=== PATIENT | female | born 1990 | race Caucasian/White ===

== ENCOUNTER 2016-09-18 17:35 | Emergency (ER) | payer MEDICAID, OTHER ==
[~2016-09-18] VITALS: Ht 157.5 cm; Wt 99.8 kg
[~2016-09-18 17:35] MED LIST: CLIN300C11 PO; IBUP-30 PO; LITH300C PO; ONDA4TAB11 PO; SERT50TA2 PO; SULF-222 PO; SULF1TAB35 PO; TRAZ100T92 PO; ZOLOFT
[2016-09-18] MEDS ORDERED: PHEN-452 PO (18:22)
[2016-09-18] MEDS ORDERED: TOPI25CA2 PO (18:22)
[2016-09-18] MEDS ORDERED: CLON1TAB27 PO (18:22)
[2016-09-18] MEDS ORDERED: SUMA100T3 PO (18:22)
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
[2016-09-18 18:52] LABS: BASOPHILS # (AUTO) 0.1 10^3/uL (0.0-0.1); BASOPHILS % (AUTO) 0 % (0-10); EOSINOPHILS % (AUTO) 0 % (0-10); LYMPHOCYTES % (AUTO) 32 % (12-44); MEAN CORPUSCULAR HEMOGLOBIN 30 PG (25-34); MEAN CORPUSCULAR HGB CONC 34 G/DL (32-36); MEAN CORPUSCULAR VOLUME 87 FL (80-99); MEAN PLATELET VOLUME 9.8 FL (7.4-10.4); MONOCYTES # (AUTO) 1.3 X 10^3 (0.0-1.0); MONOCYTES % (AUTO) 8 % (0-12); NEUTROPHILS # (AUTO) 9.5 X 10^3 (1.8-7.8); NEUTROPHILS % (AUTO) 60 % (42-75); PLATELET COUNT 352 10^3/uL (130-400); RED BLOOD COUNT 4.99 10^6/uL (4.35-5.85); RED CELL DISTRIBUTION WIDTH 12.6 % (10.0-14.5); WHITE BLOOD COUNT 15.9 10^3/uL (4.3-11.0)
[2016-09-18 19:05] LABS: BASOPHILS % (MANUAL) 1 %; EOSINOPHILS % (MANUAL) 1 %; LYMPHOCYTES % (MANUAL) 31 %; NEUTROPHILS % (MANUAL) 60 %
[2016-09-18] MEDS ORDERED: TETANUS,DIPTH,PERTUSS P/F (BOOSTRIX) 0.5 ML VIAL IM ONE ×2 (19:15→19:22)
[2016-09-18 19:29] LABS: ACETAMINOPHEN < 10 UG/ML (10-30); ALANINE AMINOTRANSFERASE 78 U/L (0-55); ALBUMIN 4.4 GM/DL (3.2-4.5); ALCOHOL < 10 MG/DL (<10); ANION GAP 16 MMOL/L (5-14); ASPARTATE AMINO TRANSFERASE 112 U/L (5-34); BILIRUBIN,TOTAL 1.2 MG/DL (0.1-1.0); BLOOD UREA NITROGEN 18 MG/DL (7-18); BUN/CREATININE RATIO 19; CALCIUM 10.1 MG/DL (8.5-10.1); CARBON DIOXIDE 20 MMOL/L (21-32); CHLORIDE 104 MMOL/L (98-107); CREATININE SERUM 0.97 MG/DL (0.60-1.30); GFR ESTIMATED > 60; GLUCOSE 103 MG/DL (70-105); MAGNESIUM 2.2 MG/DL (1.8-2.4); POTASSIUM 3.5 MMOL/L (3.6-5.0); SALICYLATE < 5.0 MG/DL (5.0-20.0); SODIUM 140 MMOL/L (135-145); TOTAL PROTEIN 7.9 GM/DL (6.4-8.2)
[2016-09-18 19:46] LABS: BILIRUBIN,URINE 1+ (NEGATIVE); KETONES,URINE 1+ (NEGATIVE); LEUKOCYTE ESTERASE ,URINE 3+ (NEGATIVE); NITRITE,URINE NEGATIVE (NEGATIVE); PH,URINE 6 (5-9); PROTEIN,URINE 2+ (NEGATIVE); UROBILINOGEN,URINE 1 MG/DL (NORMAL)
[2016-09-18] MEDS ORDERED: MUPI15CR TP (20:12)
[2016-09-18] MEDS ORDERED: SULF1TAB35 PO ×2 (20:12→20:19)
[2016-09-18 20:13] LABS: SQUAMOUS EPITHELIAL CELL,UR >50 /HPF; WBC,URINE 25-50 /HPF
[2016-09-18 20:14] LABS: HYALINE CASTS, URINE RARE /LPF
[2016-09-18] MEDS ORDERED: RX-TRIMETH/SULFA. 160-800 MG (BACTRIM DS) TAB PPK#2 PO STA (20:14)
[2016-09-18] MEDS ORDERED: hydrOXYzine (VISTARIL) 25 MG CAP PO ONE (20:15)
[2016-09-18 20:45] VITALS: BP 142/100
--- OUTSIDE RECORDS SUMMARY | 2016-09-19 16:36 | XMS REPORT | Summary of Care ---
Author Author Thaddeus Graham M.D. Organization Unknown Address [address], [place] [id number] Phone Unavailable Care Team Providers Care Client Support Associate Name Role Phone Thaddeus Graham M.D. Unavailable Unavailable Thaddeus Graham PP Unavailable Unavailable Unavailable Functional Status Functional Status Health Issues* Name Dates Details Functional status health issues are not documented Status: Cognitive Status Health Issues* Name Dates Details Cognitive status health issues are not documented Status: Problems Name Dates Details Insomnia (780.52, G47.00) Status: Active Depression (311, F32.9) Status: Active Bipolar illness (296.80, F31.9) Status: Active Seasonal allergies (477.9, J30.2) Status: Active Chronic GERD (530.81, K21.9) Status: Active Chronic diarrhea (787.91, K52.9) Status: Active Headache, chronic daily (784.0, R51) Status: Active Chest wall pain (786.52, R07.89) Status: Active Costochondritis (733.6, M94.0) Status: Active Hepatitis C (070.70, B19.20) Status: Active Bronchitis (490, J40) Status: Active Rib pain on right side (786.50, R07.81) Status: Active Cough due to bronchospasm (519.11, J98.01) Status: Active Medications Name Dates Details PROzac 20 MG Oral Capsule TAKE 1 CAPSULE DAILY. * Started 20-Jul-2015 ActiveLithium Carbonate 300 MG Oral Capsule TAKE 1 CAPSULE 3 TIMES DAILY. * Refills: 0 * Started 20-Jul-2015 ActiveTraZODone HCl - 150 MG Oral Tablet TAKE 1 TABLET AT BEDTIME. * Refills: 0 * Started 22-Jul-2015 ActiveBenzonatate 100 MG Oral Capsule TAKE 1 CAPSULE 3 TIMES DAILY NEEDED. * Quantity: 30 Refills: 2 Thaddeus Graham M.D.* Started 22-Jul-2015 ActiveProventil HFA 108 (90 Base) MCG/ACT Inhalation Aerosol Solution INHALE 2 PUFFS EVERY 4 HOURS NEEDED * Quantity: 1 Refills: 6 Thaddeus Graham M.D.* Started 22-Jul-2015 Active6.7 GM Inhaler Indomethacin 50 MG Oral Capsule TAKE 1 CAPSULE 3 TIMES DAILY NEEDED. * Quantity: 90 Refills: 1 Thaddeus Graham M.D.* Started 28-Jul-2015 ActiveOxyCODONE HCl - 10 MG Oral Tablet take 1 po TID prn * Quantity: 40 Refills: 0 Thaddeus Graham M.D.* Started 28-Jul-2015 ActiveGuaiFENesin ER 600 MG Oral Tablet Extended Release 12 Hour TAKE 2 TABLETS EVERY 12 HOURS. * Quantity: 40 Refills: 0 Thaddeus Graham M.D.* Started 28-Jul-2015 ActiveCefdinir 300 MG Oral Capsule TAKE 1 CAPSULE TWICE DAILY UNTIL GONE. * Quantity: 14 Refills: 0 Thaddeus Graham M.D.* Started 28-Jul-2015 ActiveLevofloxacin 750 MG Oral Tablet TAKE 1 TABLET DAILY. * Quantity: 20 Refills: 0 Thaddeus Graham M.D.* Started 04-Aug-2015 Active Allergies and Adverse Reactions Name Dates Details Bactrim Status: Active Erythromycin Derivatives Status: Active Penicillins Status: Active Past Medical History Name Dates Details Bipolar illness (296.80, F31.9) Status: Active Hepatitis C (070.70, B19.20) Status: Active Rib pain on right side (786.50, R07.81) Status: Active Seasonal allergies (477.9, J30.2) Status: Active Procedures Procedure Dates Details History of Tonsillectomy Procedures not documented Immunization Name Dates Details Immunizations not documented Family History Mother* Name Dates Details Family history of cardiac disorder (V17.49, Z82.49) Status: Active Father* Name Dates Details Family history of Diabetes type 2, controlled (250.00, E11.9) Status: Active Family history of cardiac disorder (V17.49, Z82.49) Status: Active Family history of High cholesterol (272.0, E78.0) Status: Active Social History Name Dates Details Smoking Status* Smoker. current status unknown Vital Signs Date Test Result Details 10:53 BP Systolic 126 mm[Hg] Status: BP Diastolic 68 mm[Hg] Status: Temperature 98.2 f Status: Heart Rate 82 /min Status: Weight 231 lb Status: O2 SAT 97 % Status: Body Mass Index Calculated 42.25 kg/m2 Status: Body Surface Area Calculated 2.03 m2 Status: 04-Aug-2015 16:39 BP Systolic 124 mm[Hg] Status: BP Diastolic 68 mm[Hg] Status: Temperature 97.8 f Status: Heart Rate 81 /min Status: Weight 237 lb Status: O2 SAT 98 % Status: Body Mass Index Calculated 43.35 kg/m2 Status: Body Surface Area Calculated 2.05 m2 Status: 03-Aug-2015 17:15 BP Systolic 148 mm[Hg] Status: BP Diastolic 98 mm[Hg] Status: Temperature 97.9 f Status: Heart Rate 87 /min Status: O2 SAT 98 % Status: 28-Jul-2015 15:06 BP Systolic 128 mm[Hg] Status: BP Diastolic 72 mm[Hg] Status: Temperature 98 f Status: Heart Rate 87 /min Status: Weight 242 lb Status: O2 SAT 98 % Status: Body Mass Index Calculated 44.26 kg/m2 Status: Body Surface Area Calculated 2.07 m2 Status: Results Date Description Value Details 28-Jul-2015 07:56 Hepatitis C Viral RNA, Quantitative, RT- PCR w/Reflex to [id number] Comments: [facility], [address] [place] [address], [phone], Moss Bleacher: Jose Shay MDQuest Collection Date/Time: [id number] Results Received Date/Time: [id number] Reported Date/Time: [id number] FASTING:NO HCV RNA, QUANTITATIVE REAL TIME PCR [id number] IU/mL (Above high threshold) Comments: [[facility]]----- HCV RNA, QUANTITATIVE REAL TIME PCR 6.64 LogIU/mL (Above high threshold) Comments: REFERENCE RANGE: HCV RNA, PCR, QUANT: <15 IU/mL HCV RNA, PCR, QUANT: <1.18 LogIU/mLThis test was performed using the RUSLAN(R) AmpliPrep/RUSLAN(R)TaqMan(R) HCV Test, v2.0.The performance characteristics of this assay have beendetermined by [facility]. Performance characteristicsrefer to the analytical performance of the test.For additional information, please refer [email or web address].[employer]/faq [email or web address](This link is being provided for informational/educational purposesonly. )[[facility]]----- 29-Jul-2015 10:19 Hepatitis C Viral RNA, Genotype, LIPA [id number] Comments : [facility] performed at: [facility], [facility], [address] [place] [address], [id number], Moss Bleacher: Jose Shay MDQuest Collection Date/Time: [id number] Results Received Date/Time: [id number] Reported Date/Time: [id number] FASTING:NO HCV GENOTYPE, LIPA GENOTYPE 1a (Better) Comments: REFERENCE RANGE: NOT DETECTEDThe method used in this test is RT-PCR and reversehybridization (Line Probe) of the 5' UTR and coreregion of the HCV genome.This test was developed and its analytical performancecharacteristics have been determined by [facility].It has not been cleared or approved by the U.S. Food andDrug Administration. The FDA has determined that suchclearance or approval is not necessary. This assay hasbeen validated pursuant to the CLIA regulations and isused for clinical purposes.[email or web address] /faq/ HCVGenotyping[[facility]]----- Plan of Care Planned Observations* Name Dates Details Planned Goals not documented Goal Instructions * Instructions not documented Encounters Appointment; Thaddeus Graham Encounter Diagnosis: Problem not documented On 10:45 Appointment; Thaddeus Graham Encounter Diagnosis: Problem not documented On 04-Aug-2015 16:30 Appointment; Alisa Cloud Encounter Diagnosis: Problem not documented On 03-Aug-2015 17:00 Appointment; Thaddeus Graham Encounter Diagnosis: Problem not documented On 28-Jul-2015 14:45 Appointment; Thaddeus Graham Encounter Diagnosis: Problem not documented On 22-Jul-2015 13:45 Appointment; Alisa Cloud Encounter Diagnosis: Problem not documented On 20-Jul-2015 08:30
--- OUTSIDE RECORDS SUMMARY | 2016-09-19 16:36 | XMS REPORT | Summary of Care ---
Author Author Thaddeus Graham M.D. Organization Unknown Address Unknown Phone Unavailable Care Team Providers Care Instructional Material Director Name Role Phone Thaddeus Graham M.D. Unavailable Unavailable Thaddeus Graham Unavailable Unavailable Unavailable Unavailable Functional Status Name Dates Details Functional status health issues are not documented Status: Name Dates Details Cognitive status health issues are not documented Status: Problems Name Dates Details Insomnia (780.52, G47.00) Status: Active Depression (311, F32.9) Status: Active Bipolar illness (296.80, F31.9) Status: Active Chronic GERD (530.81, K21.9) Status: Active Chronic diarrhea (787.91, K52.9) Status: Active Headache, chronic daily (784.0, R51) Status: Active Costochondritis (733.6, M94.0) Status: Active Hepatitis C (070.70, B19.20) Status: Active Rib pain on right side (786.50, R07.81) Status: Active Cough due to bronchospasm (519.11, J98.01) Status: Active Seasonal allergies (477.9, J30.2) Status: Active Blood in urine (599.70, R31.9) Status: Active UTI (urinary tract infection) (599.0, N39.0) Status: Active control counseling (V25.09, Z30.9) Status: Active Contraception (V25.9, Z30.9) Status: Active Urinary incontinence (788.30, R32) Status: Active Pleurisy (511.0, R09.1) Status: Active Bronchitis (490, J40) Status: Active Chest wall pain (786.52, R07.89) Status: Active Pulled muscle (848.9, T14.8) Status: Active Low back pain (724.2, M54.5) Status: Active MRSA infection (041.12, A49.02) Status: Active Anxiety disorder (300.00, F41.9) Status: Active 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 * Start 20-Jul-2015 Active [place] Carbonate 300 MG Oral Capsule TAKE 1 CAPSULE 3 TIMES DAILY. * Refills: 0 * Start 20-Jul-2015 Active TraZODone HCl - 150 MG Oral Tablet TAKE 1 TABLET AT BEDTIME. * Refills: 0 * Start 22-Jul-2015 Active Benzonatate 100 MG Oral Capsule TAKE 1 CAPSULE 3 TIMES DAILY NEEDED. * Quantity: 30 Refills: 2 Gladys M.D., Thaddeus * Start 22-Jul-2015 Active Indomethacin 50 MG Oral Capsule TAKE 1 CAPSULE 3 TIMES DAILY NEEDED. * Quantity: 90 Refills: 1 Gladys M.D., Thaddeus * Start 28-Jul-2015 Active OxyCODONE HCl - 5 MG Oral Tablet TAKE 1 TABLET TID PRN * Quantity: 30 Refills: 0 [place] M.D., Thaddeus * Start 28-Jul-2015 Active GuaiFENesin ER 600 MG Oral Tablet Extended Release 12 Hour TAKE 2 TABLETS EVERY 12 HOURS. * Quantity: 40 Refills: 0 [place] M.D., Thaddeus * Start 28-Jul-2015 Active Cefdinir 300 MG Oral Capsule TAKE 1 CAPSULE TWICE DAILY UNTIL GONE. * Quantity: 14 Refills: 0 [place] M.D., Thaddeus * Start 28-Jul-2015 Active LevoFLOXacin 750 MG Oral Tablet TAKE 1 TABLET DAILY. * Quantity: 20 Refills: 0 [place] M.D., Thaddeus * Start 04-Aug-2015 Active Montelukast Sodium 10 MG Oral Tablet TAKE 1 TABLET AT BEDTIME. * Quantity: 30 Refills: 5 [place] M.D., Thaddeus * Start Active Nitrofurantoin Monohyd Macro 100 MG Oral Capsule TAKE 1 CAPSULE TWICE DAILY UNTIL GONE. * Quantity: 20 Refills: 0 [place] M.D., Thaddeus * Start Active Phenazopyridine HCl - 200 MG Oral Tablet 1 PO TID X 2 days * Quantity: 6 Refills: 0 Gladys M.D., Thaddeus * Start Active Sprintec 28 0.25-35 MG-MCG Oral Tablet TAKE 1 TABLET DAILY DIRECTED. * Quantity: 1 Refills: 0 [place] M.D., Thaddeus * Start 18-Oct-2015 Active 28 Tablet Disp Pack PredniSONE 50 MG Oral Tablet take 1 daily for 5 days * Quantity: 5 Refills: 0 [place] M.D., Thaddeus * Start 04-Nov-2015 Active Cefdinir 300 MG Oral Capsule TAKE 1 CAPSULE EVERY 12 HOURS UNTIL GONE. * Quantity: 20 Refills: 0 [place] M.D., Thaddeus * Start 04-Nov-2015 Active Ventolin HFA 108 (90 Base) MCG/ACT Inhalation Aerosol Solution INHALE 2 PUFFS EVERY 4 HOURS NEEDED FOR COUGH AND WHEEZE. * Quantity: 1 Refills: 0 [place] M.D., Thaddeus * Start 04-Nov-2015 Active 8 GM Inhaler TiZANidine HCl - 4 MG Oral Tablet TAKE 1 TABLET 3 TIMES DAILY NEEDED. * Quantity: 30 Refills: 0 [place] M.D., Thaddeus * Start 02-Dec-2015 Active TraMADol HCl - 50 MG Oral Tablet TAKE 1 TO 2 TABLETS 4 TIMES DAILY NEEDED FOR PAIN. * Quantity: 60 Refills: 1 [place] M.D., Thaddeus * Start 02-Dec-2015 Active Salsalate 750 MG Oral Tablet TAKE 1 TABLET 3 times daily * Quantity: 90 Refills: 6 [place] M.D., Thaddeus * Start 05-Dec-2015 Active Celecoxib 200 MG Oral Capsule take 1 capsule daily * Quantity: 30 Refills: 0 Gladys M.D., Thaddeus * Start 05-Dec-2015 Active ALPRAZolam XR 2 MG Oral Tablet Extended Release 24 Hour TAKE 1 TABLET DAILY. * Quantity: 30 Refills: 0 Gladys M.D., Thaddeus * Start 03-Jan-2016 Active Lidocaine 5 % External Ointment Apply to painful area four times a day as needed * Quantity: 1 Refills: 1 Gladys M.D., Thaddeus * Start 04-Jan-2016 Active 35 GM Tube Clindamycin HCl - 300 MG Oral Capsule take 1 po QID * Quantity: 60 Refills: 0 Gladys M.D., Thaddeus * Start 05-Jan-2016 Active Allergies and Adverse Reactions Name Dates Details Bactrim (Allergy) Status: Active Erythromycin Derivatives (Allergy) Status: Active Penicillins (Allergy) Status: Active Past Medical History Name Dates Details Bipolar illness (296.80, F31.9) Status: Active Hepatitis C (070.70, B19.20) Status: Active Rib pain on right side (786.50, R07.81) Status: Active Seasonal allergies (477.9, J30.2) Status: Active Procedures Procedure Dates Details History of Tonsillectomy CBC w/ Manual Diff 7225 Ordered: 05-Jan-2016 C REACTIVE PROTEIN, CRP 2030 Ordered: 05-Jan-2016 Immunization Name Dates Details Immunizations not documented Family History Name Dates Details Family history of cardiac disorder (V17.49, Z82.49) Status: Active Name Dates Details Family history of Diabetes type 2, controlled (250.00, E11.9) Status: Active Family history of cardiac disorder (V17.49, Z82.49) Status: Active Family history of High cholesterol (272.0, E78.00) Status: Active Social History Name Dates Details - Status: Name Dates Details Smoker. current status unknown Vital Signs Date Test Result Details 03-Jan-2016 09:06 Temperature 97.5 f Status: Comments: Method: Tympanic Heart Rate 88 /min Status: Comments: Location: ; Weight 221 lb Status: Physical Findings 97 Status: Comments: O2 Saturation Body Mass Index Calculated 40.42 kg/m2 Status: Body Surface Area Calculated 1.99 m2 Status: Results Date Description Value Details 28-Dec-2015 08:19 POTASSIUM 1170 POTASSIUM 4.1 04-Jan-2016 14:18 C REACTIVE PROTEIN, CRP 2030 C REACTIVE PROTEIN 2.0 mg/dL (Above high threshold) Range: 0.0-0.9 14:49 CBC w/ Manual Diff 7225 WBC 19.6 K/uL (Above high threshold) Range: 4.5-11.0 RBC 4.75 mil/uL Range: 3.60-5.00 HGB 14.0 g/dL Range: 12.0-16.0 HCT 41.4 % Range: 36.0-48.0 MCV 87.3 fL Range: 80.0-99.0 MCH 29.4 pg Range: 27.3-32.5 MCHC 33.7 % Range: 32.0-36.0 RDW 15.6 % (Above high threshold) Range: 11.6-14.8 PLATELETS 380 K/uL Range: 150-400 MPV 7.6 fL Range: 6.0-11.0 NEUTRO 14.8 K/uL (Above high threshold) Range: 2.0-6.9 SEGS 69 % Range: 37-80 BANDS 0 % Range: 0-7 LYMPH 28 % Range: 13-50 MONO 2 % Range: 0-12 EOSIN 1 % Range: 0-7 BASO 0 % Range: 0-3 CECILE LYMPH 0 % Range: 0-0 META 0 % Range: 0-0 MYELO 0 % Range: 0-0 PRO 0 % Range: 0-0 BLAST 0 % Range: 0-0 NUC RBC 0 /100 WBC Range: 0-0 SMUDGE 0 /100 WBC PLATELET Adequate Range: Adequate ANISO Slight Plan of Care Name Dates Details Planned Observations Planned Goals not documented Planned Encounters Appointment; Provider: Thaddeus Graham M.D. On 10-Jan-2016 10:45 Interventions Provided Medication Changes* Clindamycin HCl - 300 MG Oral Capsule - Start Labs/Procedures/Imaging* C REACTIVE PROTEIN, CRP 2030; To be Done: 05 Jan 2016 * CBC w/ Manual Diff 7225; To be Done: 05 Jan 2016 Instructions Name Dates Details Instructions not documented Encounters Appointment; Thaddeus Graham M.D. Encounter Diagnosis: Problem not documented On 03-Jan-2016 09:00 Appointment; Thaddeus Graham M.D. Encounter Diagnosis: Problem not documented On 16-Dec-2015 16:15 Appointment; Thaddeus Graham M.D. Encounter Diagnosis: Problem not documented On 02-Dec-2015 16:45 Appointment; Thaddeus Graham M.D. Encounter Diagnosis: Problem not documented On 04-Nov-2015 08:45 Appointment; Thaddeus Graham M.D. Encounter Diagnosis: Problem not documented On 18-Oct-2015 11:00 Appointment; Thaddeus Graham M.D. Encounter Diagnosis: Problem not documented On 14:30 Appointment; Thaddeus Graham M.D. Encounter Diagnosis: Problem not documented On 10:45 Appointment; Thaddeus Graham M.D. Encounter Diagnosis: Problem not documented On 04-Aug-2015 16:30 Appointment; Alisa Cloud Encounter Diagnosis: Problem not documented On 03-Aug-2015 17:00 Appointment; Thaddeus Graham M.D. Encounter Diagnosis: Problem not documented On 28-Jul-2015 14:45 Appointment; Thaddeus Graham M.D. Encounter Diagnosis: Problem not documented On 22-Jul-2015 13:45 Appointment; Alisa Cloud Encounter Diagnosis: Problem not documented On 20-Jul-2015 08:30
--- OUTSIDE RECORDS SUMMARY | 2016-09-19 16:36 | XMS REPORT | Summary of Care ---
Author Author Thaddeus Graham M.D. Organization Unknown Address Unknown Phone Unavailable Care Team Providers Care Aircraft Engine Mechanic Supervisor Name Role Phone Thaddeus Graham M.D. Unavailable [...] Low back pain (724.2, M54.5) Status: Active Medications Name Dates Details PROzac 20 MG Oral Capsule TAKE 1 CAPSULE DAILY. * Start 20-Jul-2015 Active [place] Carbonate 300 MG Oral Capsule TAKE 1 [...] DAILY NEEDED. * Quantity: 90 Refills: 1 [place] M.D., Thaddeus * Start 28-Jul-2015 Active OxyCODONE HCl - 5 MG Oral Tablet TAKE 1 TABLET EVERY 4 HOURS NEEDED FOR PAIN. * Quantity: 50 Refills: 0 [place] M.D., Thaddeus * Start 28-Jul-2015 Active GuaiFENesin ER 600 MG Oral Tablet Extended Release 12 Hour TAKE 2 TABLETS EVERY 12 HOURS. * Quantity: 40 Refills: 0 Gladys M.D., Thaddeus * Start 28-Jul-2015 Active Cefdinir 300 MG Oral Capsule TAKE 1 CAPSULE TWICE DAILY UNTIL GONE. * Quantity: 14 Refills: 0 [place] M.D., Thaddeus * Start 28-Jul-2015 Active LevoFLOXacin 750 MG Oral Tablet TAKE 1 TABLET DAILY. * Quantity: 20 Refills: 0 [place] M.D., Thaddeus * Start 04-Aug-2015 Active Montelukast Sodium 10 MG Oral Tablet TAKE 1 TABLET AT BEDTIME. * Quantity: 30 Refills: 5 Gladys M.D., Thaddeus * Start Active Nitrofurantoin Monohyd Macro 100 MG Oral Capsule TAKE 1 CAPSULE TWICE DAILY UNTIL GONE. * Quantity: 20 Refills: 0 [place] M.D., Thaddeus * Start Active Phenazopyridine HCl - 200 MG Oral Tablet 1 PO TID X 2 days * Quantity: 6 Refills: 0 [place] M.D., Thaddeus * Start Active Sprintec 28 0.25-35 MG-MCG Oral Tablet TAKE 1 TABLET DAILY DIRECTED. * Quantity: 1 Refills: 0 [place] M.D., Thaddeus * Start 18-Oct-2015 Active 28 Tablet Disp Pack PredniSONE 50 MG Oral Tablet take 1 daily for 5 days * Quantity: 5 Refills: 0 Gladys M.D., Thaddeus * Start 04-Nov-2015 Active Cefdinir 300 MG Oral Capsule TAKE 1 CAPSULE EVERY 12 HOURS UNTIL GONE. * Quantity: 20 Refills: 0 [place] M.D., Thaddeus * Start 04-Nov-2015 Active Ventolin HFA 108 (90 Base) MCG/ACT Inhalation Aerosol Solution INHALE 2 PUFFS EVERY 4 HOURS NEEDED FOR COUGH AND WHEEZE. * Quantity: 1 Refills: 0 [place] M.D., Thaddeus * Start 04-Nov-2015 Active 8 GM Inhaler TiZANidine HCl - 4 MG Oral Tablet TAKE 1 TABLET 3 TIMES DAILY NEEDED. * Quantity: 30 Refills: 0 Gladys M.D., Thaddeus * Start 02-Dec-2015 Active TraMADol HCl - 50 MG Oral Tablet TAKE 1 TO 2 TABLETS 4 TIMES DAILY NEEDED FOR PAIN. * Quantity: 60 Refills: 1 Gladys M.D., Thaddeus * Start 02-Dec-2015 Active Salsalate 750 MG Oral Tablet TAKE 1 TABLET 3 times daily * Quantity: 90 Refills: 6 [place] M.D., Thaddeus * Start 05-Dec-2015 Active Allergies and Adverse Reactions Name Dates Details Bactrim (Allergy) Status: Active Erythromycin Derivatives (Allergy) Status: Active Penicillins (Allergy) Status: Active Past Medical History Name Dates Details Bipolar illness (296.80, F31.9) Status: Active Hepatitis C (070.70, B19.20) Status: Active Rib pain on right side (786.50, R07.81) Status: Active Seasonal allergies (477.9, J30.2) Status: Active Procedures Procedure Dates Details History of Tonsillectomy Urinalysis, reflex to Micro and Culture ([facility]) 8016 Ordered: Oct-2015 Immunization Name Dates Details Immunizations not documented [...] unknown Vital Signs Date Test Result Details 02-Dec-2015 16:58 BP Systolic 124 mm[Hg] Status: Comments: Location: LUE; Position: Sitting BP Diastolic 80 mm[Hg] Status: Comments: Location: LUE; Position: Sitting Temperature 98.1 f Status: Comments: Method: Tympanic Heart Rate 82 /min Status: Comments: Location: ; Physical Findings 98 Status: Comments: O2 Saturation Results Date Description Value Details Results not documented Plan of Care Name Dates Details Planned Observations Planned Goals not documented Planned Encounters Appointment; Provider: Thaddeus Graham M.D. On 16-Dec-2015 16:15 Interventions Provided Medication Changes* Salsalate 750 MG Oral Tablet - Start Instructions Name Dates Details Instructions not documented [...]
--- OUTSIDE RECORDS SUMMARY | 2016-09-19 16:36 | XMS REPORT ---
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
--- OUTSIDE RECORDS SUMMARY | 2016-09-19 16:36 | XMS REPORT | Summary of Care ---
Author Author Thaddeus Graham M.D. Organization Unknown Address [address], [place] [id number] Phone Unavailable Care Team Providers Care Beater Room Supervisor Name Role Phone Pedro LuisAlisa Unavailable Unavailable Thaddeus Graham M.D. Unavailable Unavailable Avril Jama PP Unavailable Unavailable Unavailable Functional Status Functional Status Health Issues* Name Dates Details Functional status health issues are not documented Status: Cognitive Status Health Issues* Name Dates Details Cognitive status health issues are not documented Status: Problems Name Dates Details Insomnia (780.52, G47.00) Status: Active Rib pain on right side (786.50, R07.81) Status: Active Headache, chronic daily (784.0, R51) Status: Active Chest wall pain (786.52, R07.89) Status: Active Cough (786.2, R05) Status: Active Depression (311, F32.9) Status: Active Seasonal allergies (477.9, J30.2) Status: Active Chronic diarrhea (787.91, K52.9) Status: Active Bronchitis (490, J40) Status: Active Hepatitis C (070.70, B19.20) Status: Active Bipolar illness (296.80, F31.9) Status: Active Chronic GERD (530.81, K21.9) Status: Active Medications Name Dates Details PROzac 20 MG Oral Capsule TAKE 1 CAPSULE DAILY. * Started 20-Jul-2015 Active[place] Carbonate 300 MG Oral Capsule TAKE 1 CAPSULE 3 TIMES DAILY. * Refills: 0 * Started 20-Jul-2015 ActiveLevofloxacin 500 MG Oral Tablet TAKE 1 TABLET DAILY. * Quantity: 7 Refills: 0 Pedro Luis Alisa * Started 20-Jul-2015 Ended 27-Jul-2015 ActivePromethazine-Codeine 6.25-10 MG/5ML Oral Syrup Take 5 - 7.5 ml at bedtime for cough * Quantity: 1 Refills: 0 Alisa Cloud * Started 20-Jul-2015 Ritxrk334 ML Bottle TraZODone HCl - 150 MG Oral Tablet TAKE 1 TABLET AT BEDTIME. * Refills: 0 * Started 22-Jul-2015 ActiveHydrocodone-Acetaminophen 5-325 MG Oral Tablet TAKE 1 TO 2 TABLETS EVERY 4 TO 6 HOURS NEEDED FOR PAIN. * Quantity: 60 Refills: 0 Thaddeus Graham M.D.* Started 22-Jul-2015 ActiveBenzonatate 100 MG Oral Capsule TAKE 1 CAPSULE 3 TIMES DAILY NEEDED. * Quantity: 30 Refills: 5 Thaddeus Graham M.D.* Started 22-Jul-2015 ActivePromethazine-DM 6.25-15 MG/5ML Oral Syrup TAKE 5 - 10 ML BY MOUTH EVERY 6 HOURS NEEDED. * Quantity: 1 Refills: 3 Thaddeus Graham M.D.* Started 22-Jul-2015 [id number] ML Bottle Proventil HFA 108 (90 Base) MCG/ACT Inhalation Aerosol Solution INHALE 2 PUFFS EVERY 4 HOURS NEEDED * Quantity: 1 Refills: 6 Thaddeus Graham M.D.* Started 22-Jul-2015 Active6.7 GM Inhaler Allergies and Adverse Reactions Name Dates Details Bactrim Status: Active Erythromycin Derivatives Status: Active Penicillins Status: Active Past Medical History Name Dates Details Bipolar illness (296.80, F31.9) Status: Active Hepatitis C (070.70, B19.20) Status: Active Rib pain on right side (786.50, R07.81) Status: Active Seasonal allergies (477.9, J30.2) Status: Active Procedures Procedure Dates Details History of Tonsillectomy Hepatitis C Viral RNA, Quantitative, RT- PCR w/Reflex to [id number] Ordered: LIVER PROFILE 1215 Ordered:22-Jul-2015 Immunization Name Dates Details Immunizations not documented Family History Mother* Name Dates Details Family history of cardiac disorder (V17.49, Z82.49) Status: Active Father* Name Dates Details Family history of Diabetes type 2, controlled (250.00, E11.9) Status: Active Family history of High cholesterol (272.0, E78.0) Status: Active Family history of cardiac disorder (V17.49, Z82.49) Status: Active Social History Name Dates Details Smoking Status* Smoker. current status unknown Vital Signs Date Test Result Details 22-Jul-2015 13:58 BP Systolic 130 mm[Hg] Status: BP Diastolic 78 mm[Hg] Status: Temperature 99.7 f Status: Heart Rate 68 /min Status: Weight 237 lb Status: O2 SAT 97 % Status: Body Mass Index Calculated 43.35 kg/m2 Status: Body Surface Area Calculated 2.05 m2 Status: 20-Jul-2015 08:29 BP Systolic 130 mm[Hg] Status: BP Diastolic 88 mm[Hg] Status: Temperature 98.8 f Status: Heart Rate 89 /min Status: Height 62 in Status: Weight 236 lb Status: O2 SAT 99 % Status: Body Mass Index Calculated 43.17 kg/m2 Status: Body Surface Area Calculated 2.05 m2 Status: Results Date Description Value Details 20-Jul-2015 09:27 XRay CHEST-PA & LAT Comments: Exam Date: 07/20/2015 08: 58Dictation Date: 07/20/2015 09:27 X CHEST PA & LAT ([facility]) Plan of Care Planned Observations* Name Dates Details Planned Goals not documented Goal Instructions * Instructions not documented Encounters Appointment; Thaddeus Graham Encounter Diagnosis: Problem not documented On 22-Jul-2015 13:45 Appointment; Alisa Cloud Encounter Diagnosis: Problem not documented On 20-Jul-2015 08:30
--- OUTSIDE RECORDS SUMMARY | 2016-09-19 16:37 | XMS REPORT | Summary of Care ---
Author Author Thaddeus Graham M.D. Organization Unknown Address [address], [place] [id number] Phone Unavailable Care Team Providers Care Home Therapy Clinician Name Role Phone Thaddeus Graham M.D. Unavailable [...] Chest wall pain (786.52, R07.89) Status: Active Rib pain on right side (786.50, R07.81) Status: Active Bronchitis (490, J40) Status: Active Costochondritis (733.6, M94.0) Status: Active Hepatitis C (070.70, B19.20) Status: Active Cough due to bronchospasm (519.11, [...] Refills: 0 Thaddeus Graham M.D.* Started 28-Jul-2015 Active Allergies and Adverse Reactions Name Dates Details Bactrim Status: Active Erythromycin Derivatives Status: Active Penicillins Status: Active Past Medical History Name Dates Details Bipolar illness (296.80, F31.9) Status: Active Hepatitis C (070.70, B19.20) Status: Active Rib pain on right side (786.50, R07.81) Status: Active Seasonal allergies (477.9, J30.2) Status: Active Procedures Procedure Dates Details History of Tonsillectomy LIVER PROFILE 1215 Ordered:22-Jul-2015 Immunization Name Dates [...] unknown Vital Signs Date Test Result Details 04-Aug-2015 16:39 BP Systolic 124 mm[Hg] Status: [...] Body Surface Area Calculated 2.07 m2 Status: 22-Jul-2015 13:58 BP Systolic 130 mm[Hg] Status: [...] 09:27 X CHEST PA & LAT ([facility]) 28-Jul-2015 07:56 Hepatitis C Viral RNA, Quantitative, RT- PCR w/Reflex to [id number] Comments: [facility] performed at: [facility], [facility], [address] [place] [address], [phone], Supervisor Pyrotechnic Loading: Jose Shay MDQuest Collection Date/Time: [id number] Results Received Date/Time: [id number] Reported Date/Time: [id number] FASTING:NO HCV RNA, QUANTITATIVE REAL TIME PCR [id number] IU/mL (Above high threshold) Comments: [[facility]]----- HCV RNA, QUANTITATIVE REAL TIME PCR 6.64 LogIU/mL (Above high threshold) Comments: REFERENCE RANGE: HCV RNA, PCR, QUANT: <15 IU/mL HCV RNA, PCR, QUANT: <1.18 LogIU/mLThis test was performed using the RUSLAN(R) AmpliPrep/RUSLAN(R)TaqMan(R) HCV Test, v2.0.The performance characteristics of this assay have beendetermined by [facility]. Performance characteristicsrefer to the analytical performance of the test.For additional information, please refer tohttp://education.Introvision R&D/faq /[email or web address](This link is being provided for informational/educational purposesonly. )[[facility]]----- 29-Jul-2015 10:19 Hepatitis C Viral RNA, Genotype, LIPA [id number] Comments : [facility] performed at: [facility], [facility], [address] [place] [address], [phone], Supervisor Pyrotechnic Loading: Jose Shay MDQuest Collection Date/Time: [id number] Results Received Date/Time: [id number] Reported Date/Time: [id number] FASTING:NO HCV GENOTYPE, LIPA GENOTYPE 1a ([facility]) Comments: REFERENCE RANGE: NOT DETECTEDThe method used in this test is RT-PCR and reversehybridization (Line Probe) of the 5' UTR and coreregion of the HCV genome.This test was developed and its analytical performancecharacteristics have been determined by [facility].It has not been cleared or approved by the U.S. Food andDrug Administration. The FDA has determined that suchclearance or approval is not necessary. This assay hasbeen validated pursuant to the CLIA regulations and isused for clinical purposes.http://education.On-Q-ity.[employer] /faq/ HCVGenotyping[[facility]]----- Plan of Care Planned Observations* Name [...]
--- OUTSIDE RECORDS SUMMARY | 2016-09-19 16:37 | XMS REPORT ---
Author CHELA Sierra Organization [employer] Address Unknown Phone Unavailable Care Team Providers Care Machine Ii Coremaker Name Role Phone CHELA STEELE CP Unavailable Allergies, Adverse Reactions, Alerts Substance Reaction Event Type Penicillin V Potassium Info Not Available Drug Allergy Iodine Info Not Available Drug Allergy Azithromycin Info Not Available Drug Allergy Problems Problem Type Condition ICD-9 Code Onset Dates Condition Status Problem Acute sinusitis, unspecified 461.9 Active Problem Absence of menstruation 626.0 Active Problem Cough 786.2 Active Assessment Alcohol abuse 305.00 Active Assessment Rash 782.1 Active Problem Acute upper respiratory infections of unspecified site 465.9 Active Problem Asthma, unspecified, unspecified status 493.90 Active Problem Acute serous otitis media 381.01 Active Problem Special screening examination, human papillomavirus [HPV] V73.81 Active Problem Urinary frequency 788.41 Active Problem Screening for malignant neoplasm of the cervix V76.2 Active Problem Obesity, unspecified 278.00 Active Medications Medication Code System Code Instructions Start Date End Date Status Dosage Zoloft NDC 0 Oral not defined HydrOXYzine HCl [facility] [address]-83 50 MG Orally every 6 hrs prn itching or anxiety Dec 04, 2014 1 tablet as needed [place] Carbonate [facility] [address]-20 300 mg Feb 22, 2014 take 1 capsule by Oral route 3 times per day Ativan [facility] [address]-30 1 MG Orally 4 times a day Nov 30, 2014 1 tablet as needed Promethazine HCl [facility] [address]-62 25 MG Orally every 6 hrs Nov 30, 2014 1 tablet as needed Procedures Procedure Coding System Code Date Office Visit, Est Pt., Level 3 CPT-4 22978 Dec 04, 2014 Vital Signs Date/Time: Dec 04, 2014 Temperature 98.7 F Weight 223.7 lbs Height 62 in BMI 40.91 Index Blood Pressure Diastolic 76 mmHg Blood Pressure Systolic 124 mmHg Cardiac Monitoring Heart Rate 76 bpm Results No Known Results Summary Purpose [employer]Clinical[employer] Submission
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
--- OUTSIDE RECORDS SUMMARY | 2016-09-19 16:37 | XMS REPORT ---
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 Problem Nondependent tobacco use disorder 305.1 Active Problem Abdominal pain, right upper quadrant 789.01 Active Assessment Urinary tract infection, site not specified 599.0 Active Problem Urinary tract infection, site not specified 599.0 Active Problem flank pain 789.00 Active Problem Unspecified viral hepatitis C without hepatic coma 070.70 Active Problem Acute serous otitis media 381.01 Active Problem Lumbago 724.2 Active Problem Pain in joint, multiple sites 719.49 Active Assessment elevated liver enzymes 794.8 Active Assessment Fatigue 780.79 Active Assessment Abdominal pain, right upper quadrant 789.01 Active Assessment Unspecified viral hepatitis C without hepatic coma 070.70 Active Problem Acute suppurative otitis media without spontaneous rupture of eardrum 382.00 Active Problem Other acute otitis externa 380.22 Active Assessment flank pain 789.00 Active Problem Health examination of defined subpopulation V70.5 Active Problem Acute gingivitis, plaque induced 523.00 Active Problem elevated liver enzymes 794.8 Active Medications Medication Code System Code Instructions Start Date End Date Status Dosage Depakote [facility] [address]-47 500 MG Orally 3 TIMES DAILY Active 1 TABLET [facility] [address]-02 20 MG Orally Once a day Active 1 TABLET Trazodone HCl [facility] [address]-63 150 MG Orally Once a day Active 1 tablet at bedtime [facility]istaril [facility] [address]-99 25 MG Orally TWICE DAILY Active 1 capsule Florajen BifidoBlend [facility] [address]19 Orally twice a day September 04, 2013 October 04, 2013 Active 1 capsule Antipyrine-Benzocaine [facility] [address]-01 5.4-1.4 % Otic Three times a day Active 1 drop affected ear canal into affected ear Sulfamethoxazole-TMP DS [facility] [address]-11 800-160 MG Orally Twice a day September 04, 2013 September 09, 2013 Active 1 tablet Adderall [facility] [address]-51 20 MG Orally TWICE DAILY Active 1 tablet Procedures Procedure Coding System Code Date URINE CULTURE/COLONY COUNT CPT-4 66465 September 04, 2013 URINE BACTERIA CULTURE CPT-4 66350 September 04, 2013 URINALYSIS, AUTO, W/O SCOPE CPT-4 42555 September 04, 2013 Office Visit, Est Pt., Level 3 CPT-4 80624 September 04, 2013 COMPREHEN METABOLIC PANEL CPT-4 23893 September 04, 2013 Vital Signs Date/Time: September 04, 2013 Height 61.8 in Blood Pressure Diastolic 70 mm Hg Blood Pressure Systolic 101 mm Hg Temperature 97.8 F Cardiac Monitoring Heart Rate 85 /min Results No Known Results Summary Purpose [employer]ClinicalWorks Submission
--- OUTSIDE RECORDS SUMMARY | 2016-09-19 16:38 | XMS REPORT | Summary of Care ---
Author Author Thaddeus Graham M.D. Organization Unknown Address [address] [place], [place] [id number] Phone Unavailable Care Team Providers Care Layout Technician Name Role Phone Pedro Luis Alisa Unavailable Unavailable Thaddeus Graham M.D. Unavailable Unavailable [...] right side (786.50, R07.81) Status: Active Cough (786.2, R05) Status: Active Depression (311, F32.9) Status: Active Seasonal allergies (477.9, J30.2) Status: Active Bronchitis (490, J40) Status: Active Hepatitis C (070.70, B19.20) Status: Active Bipolar illness (296.80, F31.9) Status: Active Medications Name Dates Details PROzac 20 MG Oral Capsule TAKE 1 CAPSULE DAILY. * Started 20-Jul-2015 ActiveLithium Carbonate 300 MG Oral Capsule TAKE 1 CAPSULE 3 TIMES DAILY. * Refills: 0 * Started 20-Jul-2015 ActiveLevofloxacin 500 MG Oral Tablet TAKE 1 TABLET DAILY. * Quantity: 7 Refills: 0 Alisa Cloud * Started 20-Jul-2015 Ended 27-Jul-2015 ActivePromethazine-Codeine 6.25-10 MG/5ML Oral Syrup Take 5 - 7.5 ml at bedtime for cough * Quantity: 1 Refills: 0 Alisa Cloud * Started 20-Jul-2015 [id number] ML Bottle TraZODone HCl - 150 MG [...] Refills: 3 Thaddeus Graham M.D.* Started 22-Jul-2015 [id number] ML Bottle Proventil HFA 108 (90 Base) MCG/ACT Inhalation Aerosol Solution INHALE 2 PUFFS EVERY 4 HOURS NEEDED * Quantity: 1 Refills: 6 Thaddeus Graham M.D.* Started 22-Jul-2015 Active6.7 GM Inhaler Allergies and Adverse Reactions Name Dates Details Bactrim Status: Active Erythromycin Derivatives Status: Active Penicillins Status: Active Procedures Procedure Dates Details History of Tonsillectomy Hepatitis C Viral RNA, Quantitative, RT- PCR w/Reflex to [id number] Ordered: LIVER PROFILE 1215 Ordered:22-Jul-2015 Immunization Name [...]
--- OUTSIDE RECORDS SUMMARY | 2016-09-19 16:38 | XMS REPORT | Summary of Care ---
Author Author Alisa Cloud Organization Unknown Address [address] [place] [address] Phone Unavailable Care Team Providers Care School Community Relations Coordinator Name Role Phone Avril Jama CLARK Unavailable Unavailable Unavailable Functional Status Functional Status Health Issues* Name Dates Details Functional status health issues are not documented Status: Cognitive Status Health Issues* Name Dates Details Cognitive status health issues are not documented Status: Problems Name Dates Details Cough (786.2, R05) Status: Active Rib pain on right side (786.50, R07.81) Status: Active Medications Name Dates Details PROzac 20 MG Oral Capsule TAKE 1 CAPSULE DAILY. * Started 20-Jul-2015 ActiveLithium Carbonate 300 MG Oral Capsule TAKE 1 CAPSULE 3 TIMES DAILY. * Refills: 0 * Started 20-Jul-2015 Active Allergies and Adverse Reactions Name Dates Details Bactrim Status: Active Erythromycin Derivatives Status: Active Penicillins Status: Active Procedures Procedure Dates Details XRay CHEST-PA & LAT Ordered:20-Jul-2015 Immunization Name Dates Details Immunizations not documented Social History Name Dates Details Smoking Status* Smoker. current status unknown Vital Signs Date Test Result Details 20-Jul-2015 08:29 BP Systolic 130 mm[Hg] Status: BP Diastolic 88 mm[Hg] Status: Temperature 98.8 f Status: Heart Rate 89 /min Status: Height 62 in Status: Weight 236 lb Status: O2 SAT 99 % Status: Body Mass Index Calculated 43.17 kg/m2 Status: Body Surface Area Calculated 2.05 m2 Status: Results Date Description Value Details Results not documented Plan of Care Planned Observations* Name Dates Details Planned Goals not documented Goal Planned Encounters* Appointment; Provider: Thaddeus Graham On 22-Jul-2015 13:45 Instructions * Instructions not documented Encounters Appointment; Alisa Cloud Encounter Diagnosis: Problem not documented On 20-Jul-2015 08:30
--- OUTSIDE RECORDS SUMMARY | 2016-09-19 16:38 | XMS REPORT | Summary of Care ---
Author Author Alisa Cloud Organization Unknown Address [address] [place] [address] Phone Unavailable Care Team Providers Care Cavalry Officer Name Role Phone Thaddeus Graham M.D. Unavailable Thaddeus Graham PP Unavailable Unavailable Unavailable [...] unknown Vital Signs Date Test Result Details 03-Aug-2015 17:15 BP Systolic 148 mm[Hg] Status: [...] Viral RNA, Quantitative, RT- PCR w/Reflex to [id number] Comments: [facility] performed at: [facility], [facility], [address] [place] [address], [id number], [place] Type Screw Machine Operator: Jose Shay MDQuest Collection Date/Time: [id number] Results Received Date/Time: [id number] Reported Date/Time: [id number] FASTING:NO HCV RNA, QUANTITATIVE REAL TIME PCR 7617551 IU/mL (Above high threshold) Comments: [[facility]]----- HCV RNA, QUANTITATIVE REAL TIME PCR 6.64 LogIU/mL (Above high threshold) Comments: REFERENCE RANGE: HCV RNA, PCR, QUANT: <15 IU/mL HCV RNA, PCR, QUANT: <1.18 LogIU/mLThis test was performed using the RUSLAN(R) AmpliPrep/RUSLAN(R)TaqMan(R) HCV Test, v2.0.The performance characteristics of this assay have beendetermined by [facility]. Performance characteristicsrefer to the analytical performance of the test.For additional information, please refer tohttp://education.Karmaloop/faq /CFV17t9(This link is being provided for informational/educational purposesonly. )[[facility]]----- 29-Jul-2015 10:19 Hepatitis C Viral RNA, Genotype, LIPA [id number] Comments : [facility] performed at: [facility], [facility], [address] [place] [address], [phone], [place] Type Screw Machine Operator: Jose Shay MDQuest Collection Date/Time: [id number] Results Received Date/Time: [id number] Reported Date/Time: [id number] FASTING:NO HCV GENOTYPE, LIPA GENOTYPE 1a (Better) Comments: REFERENCE RANGE: NOT DETECTEDThe method used in this test is RT-PCR and reversehybridization (Line Probe) of the 5' UTR and coreregion of the HCV genome.This test was developed and its analytical performancecharacteristics have been determined by [facility].It has not been cleared or approved by the U.S. Food andDrug Administration. The FDA has determined that suchclearance or approval is not necessary. This assay hasbeen validated pursuant to the CLIA regulations and isused for clinical purposes.http://education.Karmaloop /faq/ HCVGenotyping[[facility]]----- Plan of Care Planned Observations* Name Dates Details Planned Goals not documented Goal Planned Encounters* Appointment; Provider: Thaddeus Graham On 04-Aug-2015 16:30 Instructions * Instructions not documented Encounters Appointment; Alisa Cloud Encounter Diagnosis: Problem not documented On 03-Aug-2015 17:00 Appointment; Thaddeus Graham Encounter Diagnosis: Problem not documented On 28-Jul-2015 14:45 Appointment; Thaddeus Graham Encounter Diagnosis: Problem not documented On 22-Jul-2015 13:45 Appointment; Alisa Cloud Encounter Diagnosis: Problem not documented On 20-Jul-2015 08:30
--- OUTSIDE RECORDS SUMMARY | 2016-09-19 16:38 | XMS REPORT ---
Author Author Mimi Owens Organization [employer] Address Unknown Phone Unavailable Care Team Providers Care Electrical Continuity Inspector Name Role Phone Mimi Owens CP Unavailable Allergies No Known Allergies Problems Problem Type Condition ICD-9 Code Onset Dates Condition Status Problem Other acute otitis externa 380.22 Active Problem elevated liver enzymes 794.8 Active Problem Health examination of defined subpopulation V70.5 Active Problem Acute gingivitis, plaque induced 523.00 Active Problem Acute suppurative otitis media without spontaneous rupture of eardrum 382.00 Active Problem Pain in joint, multiple sites 719.49 Active Problem Unspecified viral hepatitis C without hepatic coma 070.70 Active Problem Lumbago 724.2 Active Problem Nondependent tobacco use disorder 305.1 Active Problem Fatigue 780.79 Active Problem Acute serous otitis media 381.01 Active Problem Amphetamine and other psychostimulant dependence, 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
--- OUTSIDE RECORDS SUMMARY | 2016-09-19 16:38 | XMS REPORT | Continuity Of Care Document ---
Author Author [facility] Organization [facility] Address [address] [place] [address] Phone Care Team Providers Care Plastic Surgery Manager Name Role Phone ROSE MARIE ALVAREZ MD AT YAMILA RODNEY MD CP UNASSIGNED, ED PHYSICIAN Unavailable Unavailable SAVAGE BERRY MD Unavailable Results Lab Results Visit/Account #[id number] (December 30, 2014 12:46am - December 30, 2014 2:07am ) Test Result Date/Time 22074-6: HEMOGLOBIN AND HEMATOCRIT HEMOGLOBIN(12.0-16.0 G/DL) 8.5 G/DL December 30, 2014 3:00am HEMATOCRIT(36.0-46.0 %) 25.6 % December 30, 2014 3:00am 89930-1: COMPLETE BLOOD COUNT WITH DIFF WHITE BLOOD COUNT(4.0-11.0 10E3/UL) 12.5 10E3/UL December 30, 2014 6:00am 11.6 10E3/UL December 30, 2014 9:13am RED BLOOD COUNT(4.00-5.20 10E6/UL) 2.56 10E6/UL December 30, 2014 6:00am 2.46 10E6/UL December 30, 2014 9:13am HEMOGLOBIN(12.0-16.0 G/DL) 8.0 G/DL December 30, 2014 6:00am 7.7 G/DL December 30, 2014 9:13am HEMATOCRIT(36.0-46.0 %) 24.1 % December 30, 2014 6:00am 23.0 % December 30, 2014 9:13am MEAN CORPUSCULAR VOLUME(82.0-100.0 FL) 94.1 FL December 30, 2014 6:00am 93.5 FL December 30, 2014 9:13am 29571-1: MEAN CORPUSCULAR HEMOGLOBIN(26.0-34.0 PG) 31.3 PG December 30, 2014 6:00am 31.3 PG December 30, 2014 9:13am MEAN CORPUSCULAR HGB CONC(31.5-36.5 G/DL) 33.2 G/DL December 30, 2014 6:00am 33.5 G/DL December 30, 2014 9:13am RED CELL DISTRIBUTION WIDTH(11.5-14.5 %) 13.2 % December 30, 2014 6:00am 13.3 % December 30, 2014 9:13am 777-3: PLATELET COUNT(150-450 10E3/UL) 196 10E3/UL December 30, 2014 6:00am 192 10E3/UL December 30, 2014 9:13am MEAN PLATELET VOLUME(8.2-12.4 FL) 9.6 FL December 30, 2014 6:00am 9.9 FL December 30, 2014 9:13am 770-8: NEUTROPHILS % (AUTO)(40-70 %) 71 % December 30, 2014 6:00am 61 % December 30, 2014 9:13am LYMPHOCYTES % (AUTO)(15-45 %) 23 % December 30, 2014 6:00am 31 % December 30, 2014 9:13am 5905-5: MONOCYTES % (AUTO)(2-10 %) 4 % December 30, 2014 6:00am 5 % December 30, 2014 9:13am 713-8: EOSINOPHILS % (AUTO)(0-6 %) 1 % December 30, 2014 6:00am 1 % December 30, 2014 9:13am 706-2: BASOPHILS % (AUTO)(0-1 %) 0 % December 30, 2014 6:00am 0 % December 30, 2014 9:13am 48971-4: IMMATURE GRANS % (AUTO)(0-0 %) 1 % December 30, 2014 6:00am 1 % December 30, 2014 9:13am NUCLEATED RBCS (AUTO)(0-0 %) 0 % December 30, 2014 6:00am 0 % December 30, 2014 9:13am 751-8: NEUTROPHILS # (AUTO)(2.5-7.5 10E3/UL) 8.8 10E3/UL December 30, 2014 6:00am 7.1 10E3/UL December 30, 2014 9:13am 01757-6: LYMPHOCYTES # (AUTO)(1.0-4.0 10E3/UL) 2.9 10E3/UL December 30, 2014 6:00am 3.6 10E3/UL December 30, 2014 9:13am 742-7: MONOCYTES # (AUTO)(0.2-0.8 10E3/UL) 0.5 10E3/UL December 30, 2014 6:00am 0.6 10E3/UL December 30, 2014 9:13am 711-2: EOSINOPHILS # (AUTO)(0.0-0.4 10E3/UL) 0.1 10E3/UL December 30, 2014 6:00am 0.2 10E3/UL December 30, 2014 9:13am 704-7: BASOPHILS # (AUTO)(0.0-0.2 10E3/UL) 0.0 10E3/UL December 30, 2014 6:00am 0.1 10E3/UL December 30, 2014 9:13am IMMATURE GRANS # (AUTO)(0.0-0.0 10E3/UL) 0.1 10E3/UL December 30, 2014 6:00am 0.1 10E3/UL December 30, 2014 9:13am DIFF TYPE AUTOMATED December 30, 2014 6:00am AUTOMATED December 30, 2014 9:13am COMPLETE BLOOD COUNT WHITE BLOOD COUNT(4.0-11.0 10E3/UL) 14.9 10E3/UL December 30, 2014 12:49am RED BLOOD COUNT(4.00-5.20 10E6/UL) 3.09 10E6/UL December 30, 2014 12:49am HEMOGLOBIN(12.0-16.0 G/DL) 9.7 G/DL December 30, 2014 12:49am HEMATOCRIT(36.0-46.0 %) 29.0 % December 30, 2014 12:49am MEAN CORPUSCULAR VOLUME(82.0-100.0 FL) 93.9 FL December 30, 2014 12:49am 26585-7: MEAN CORPUSCULAR HEMOGLOBIN(26.0-34.0 PG) 31.4 PG December 30, 2014 12:49am MEAN CORPUSCULAR HGB CONC(31.5-36.5 G/DL) 33.4 G/DL December 30, 2014 12:49am RED CELL DISTRIBUTION WIDTH(11.5-14.5 %) 13.2 % December 30, 2014 12:49am 777-3: PLATELET COUNT(150-450 10E3/UL) 139 10E3/UL December 30, 2014 12:49am MEAN PLATELET VOLUME(8.2-12.4 FL) 10.1 FL December 30, 2014 12:49am NUCLEATED RBCS (AUTO)(0-0 %) 0 % December 30, 2014 12:49am 88999-3: COMPLETE METABOLIC PROFILE GLUCOSE(70-110 MG/DL) 90 MG/DL December 30, 2014 12:49am BLOOD UREA NITROGEN(6-20 MG/DL) 18 MG/DL December 30, 2014 12:49am CREATININE(0.50-1.20 MG/DL) 0.70 MG/DL December 30, 2014 12:49am 29246-9: EST GLOMERULAR FILTRATION RATE(Greater than or equal to 60) Greater than or equal to 60 Result Comments: If the patient is of -[place] descent/extraction multiply the eGFR value by 1.212 to obtain the actual eGFR. >=60 mg/dL Normal 30-59 mg/dL Moderate Kidney Disease 15-29 mg/dL Severe Kidney Disease <15 mg/dL Kidney Failure December 30, 2014 12:49am BUN CREATININE RATIO(10.0-20.0 RATIO) 26.0 RATIO December 30, 2014 12:49am SODIUM(135-145 MMOL/L) 143 MMOL/L December 30, 2014 12:49am POTASSIUM(3.6-5.0 MMOL/L) 4.1 MMOL/L December 30, 2014 12:49am CHLORIDE(101-111 MMOL/L) 114 MMOL/L December 30, 2014 12:49am 2028-9: CO2(21-31 MMOL/L) 20.0 MMOL/L December 30, 2014 12:49am 43962-4: ANION GAP(8-18) 13 December 30, 2014 12:49am OSMO CALCULATED(270.0-290.0) 286.4 December 30, 2014 12:49am CALCIUM(8.5-10.5 MG/DL) 7.2 MG/DL December 30, 2014 12:49am BILIRUBIN,TOTAL(0.1-1.2 MG/DL) 0.1 MG/DL December 30, 2014 12:49am ALKALINE PHOSPHATASE(42-121 IU/L) 94 IU/L December 30, 2014 12:49am ASPARTATE AMINO TRANSFERASE(10-42 IU/L) 50 IU/L December 30, 2014 12:49am ALANINE AMINOTRANSFERASE(10-60 IU/L) 52 IU/L December 30, 2014 12:49am 85768-7: TOTAL PROTEIN(6.4-8.2 G/DL) 5.2 G/DL December 30, 2014 12:49am ALBUMIN(3.5-5.5 G/DL) 2.9 G/DL December 30, 2014 12:49am 2336-6: GLOBULIN(2.4-3.6) 2.3 December 30, 2014 12:49am ALBUMIN/GLOBULIN RATIO(0.9-1.8 RATIO) 1.3 RATIO December 30, 2014 12:49am SERUM HCG, QUALITATIVE 0-5: SERUM HCG, QUALITATIVE(NEGATIVE) NEGATIVE December 30, 2014 12:49am ACETAMINOPHEN ACETAMINOPHEN(10-30 UG/ML) Less than 10.0 UG/ML December 30, 2014 12:49am SALICYLATE SALICYLATE(4-29 MG/DL) Less than 4 MG/DL December 30, 2014 12:49am ALCOHOL ALCOHOL(0.0-5.0 MG/DL) 183.6 MG/DL December 30, 2014 12:49am Microbiology Results Visit/Account #[id number] (December 30, 2014 12:46am - December 30, 2014 2:07am ) Procedure Result 15584-8: MRSA SCREEN FOR INFEC CONTROL 09456-9: MRSA SCREEN FOR INFEC CONTROL Result Instance On December 30, 2014 2:30am Source: NARE Organism: [id number] (SNOMED_CT) MRSA ISOLATED Bloodbank Results Visit/Account #[id number] (December 30, 2014 12:46am - December 30, 2014 2:07am ) Test Result ABO/RH 62475-7: BLOOD TYPE O POSITIVE on December 30, 2014 12:49am ANTIBODY SCREEN ANTIBODY SCREEN NEGATIVE on December 30, 2014 12:49am Allergies and Adverse Reactions Allergies and Adverse Reactions Patient Unit Number: [id number] Agent Type Reaction Severity Status CITRUS Allergy ANAPHYLACTIC SHOCK Unknown Active PENICILLINS Drug Allergy "HIGH TEMPERATURE AND SICK WITH HIVES" Unknown Active ERYTHROMYCIN BASE Drug Allergy "HIGH TEMPERATURE AND SICK WITH HIVES" Unknown Active BANANA Drug Allergy ANAPHYLACTIC SHOCK Unknown Active MELONS Allergy ANAPHYLACTIC SHOCK Unknown Active MOLD Allergy Unknown Unknown Active POLLEN Allergy Unknown Unknown Active Problem List Problem List Visit/Account #[id number] (December 30, 2014 12:46am - December 30, 2014 2:07am ) Acute Problems: Code/Condition Comments Documented Start Date Documented Resolved Date Code (s) Vaginal laceration ICD10: S31.40XA Laceration of vagina ICD9: 878.6 Laceration of vagina SNOMED: [id number] Laceration of vagina Anemia ICD10: D64.9 Anemia ICD9: 285.9 Anemia SNOMED: 616850735 Anemia Plan of Care Plan Of Care Visit/Account #[id number] (December 30, 2014 12:46am - December 30, 2014 2:07am ) Patient Instructions Instructions [facility] Drug/Alcohol Use Resources for Recovery from Drug/Alcohol Use [place] [address] [place] [address] Website: [email or web address] Email: [email or web address] [facility] offers Detoxification services, Residential services, Outpatient services, and Assessments. We can be reached at the phone number listed 08/10. [facility] [address] [place] [address] Website: [email or web address] Email: [email or web address] Open 7a-9p Saturday-Saturday Open 1p-9p Saturday Closed Saturday [facility] is a drop-in center that offers support and events in a sober environment during the days/times listed. Alcoholics Anonymous (AA) Meetings in [place] [address] [place] [address] Website: www.[employer] [place] (For those who have been affected by someone else's drinking) , Website: [email or web address] Email: [email or web address] Narcotics Anonymous (NA) Meetings in [facility] [address] [place] [address] Website: [email or web address] Email: [email or web address] Vaginal Laceration Vital Signs Vital Signs Visit/Account #[id number] (December 30, 2014 12:46am - December 30, 2014 2:07am ) Sign First Result Last Result Code(s) Body Mass Index Body Mass Index (BMI): 39.0 kg/m2 On December 30, 2014 12:45am 80225-6 BMI (body mass index) Body Mass Index as a Calculated Value 39.7 kg/m2 On December 30, 2014 12:45am 15001-7 BMI (body mass index) Blood Pressure 82/ 47 mm[Hg] On December 30, 2014 2:29am 120/ 43 mm[Hg] On December 30, 2014 9:58am 8480-6 BP Systolic Body Surface Area as a Calculated Value 1.98 m2 On December 30, 2014 12:45am 3140-1 BSA (body surface area) Height (Feet/Inches) 5 [ft_us] 2 [in_us] On December 30, 2014 12:45am Heart Rate/Pulse Pulse Rate (adult): 85 /min On December 30, 2014 4:59am Pulse Rate (adult): 85 /min On December 30, 2014 4:59am Pulse Rate (adult): 80 /min On December 30, 2014 9:58am 8867-4 Heart Rate 8893-0 Pulse rate Respiratory Rate Respiratory Rate: 20 /min On December 30, 2014 2:29am Respiratory Rate: 16 /min On December 30, 2014 9:58am 9279-1 Respiratory rate Temperature in Fahrenheit Temperature (Fahrenheit): 97.3 [degF] On December 30, 2014 12:45am Temperature (Fahrenheit): 96.9 [degF] On December 30, 2014 9:58am 8310-5 Body Temperature Weight in Kilograms Weight (Kilograms): 98.4 kg On December 30, 2014 12:45am 3141-9 Weight Measured 41942-2 Body weight measured in kilograms Functional Status Functional and Cognitive Status No Functional Status Data Medications Inpatient/Ordered Medications - Medications administered during hospital visit Visit/Account #[id number] (December 30, 2014 12:46am - December 30, 2014 2:07am ) Medication Route Sig/Schedule Precondition/Indication Comments/Instructions Codes ZOFRAN INJ(ONDansetron HCL) 4 MG/2 ML INJECTION Dose: 4 MG Route .STK-MED Ondansetron 2 MG/ML Injectable Solution (RxNorm): 734453 ZOFRAN INJ (ONDansetron HCL) NDC: 34026051838 PERCOCET 5/325(OxyCODONE/ACETAMINOPHEN) 1 TAB TAB Dose: 1 TAB ORAL Q4H PRN Reason: MODERATE TO SEVERE PAIN Label Comments: MAX REC DOSE ACETAMINOPHEN: 4000MG/24HRS MAY INCREASE FALL RISK Acetaminophen 325 MG / Oxycodone Hydrochloride 5 MG Oral Tablet (RxNorm): 4024896 PERCOCET 5/325 (OxyCODONE/ACETAMINOPHEN) NDC: 34313514161 MOTRIN(IBUPROFEN) 800 MG TAB Dose: 800 MG ORAL Q8H PRN Reason: PAIN Label Comments: TAKE WITH FOOD OR MILK Ibuprofen 800 MG Oral Tablet (RxNorm): 520630 MOTRIN (IBUPROFEN) NDC: 42386122207 IV Medication Carriers: LR(LACTATED RINGER'S) 1000 ML INJECTION Dose: 1000 ML INTRAVEN .Q1H (Rate: 1000 MLS/HR Duration: 1 HR) Carriers: Calcium Chloride 0.0014 MEQ/ML / Potassium Chloride 0.004 MEQ/ML / Sodium Chloride 0.103 MEQ (RxNorm): 387055 LR (LACTATED RINGER'S) NDC: 92687215351 ZOFRAN INJ(ONDansetron HCL) 4 MG/2 ML INJECTION Dose: 4 ML INTRAVEN NOW Label Comments: SLOW IV PUSH MAY INCREASE FALL RISK Special Dose Instructions: SLOW IV PUSH Ondansetron 2 MG/ML Injectable Solution (RxNorm): 111329 ZOFRAN INJ (ONDansetron HCL) NDC: 76278264016 IV Medication Carriers: D5W LR(DEXTROSE/LACTATED RINGERS) 1000 ML INJECTION Dose: 1000 ML INTRAVEN .Q8H (Rate: 125 MLS/HR Duration: 8 HR) Carriers: Calcium Chloride 0.001 MEQ/ML / Glucose 50 MG/ML / Potassium Chloride 0.004 MEQ/ ML / Sodium (RxNorm): 018789 D5W LR (DEXTROSE/LACTATED RINGERS) NDC: 22592042785 Discharge Medications - Medications that patient should continue to take. Review with physician Visit/Account #[id number] (December 30, 2014 12:46am - December 30, 2014 2:07am ) Medication Route Sig/Schedule Precondition/Indication Comments/Instructions Codes symbyax DAILY Ambien(ZOLPIDEM TARTRATE) 10 MG TABLET Dose: 10 MG ORAL AT BEDTIME Zolpidem tartrate 10 MG Oral Tablet (RxNorm): 203824 Ambien (ZOLPIDEM TARTRATE) NDC: 14739519430 XANAX(ALPRAZolam) 0.5 MG TABLET Dose: 0.5 MG ORAL TWICE A DAY Alprazolam 0.5 MG Oral Tablet [Xanax] (RxNorm): 050173 XANAX (ALPRAZolam) NDC: 96690954481 History Of Encounters Encounters Visit/Account #[id number] (December 30, 2014 12:46am - December 30, 2014 2:07am ) Account Status Physican Of Record Reason For Visit Visit Diagnosis Start Date/Time Stop Date/Time YESIKA RODNEY MD VAGINAL BLEED N93.9: ABNORMAL UTERINE AND VAGINAL BLEEDING, UNSPECIFIED ICD10 Dec 30, 2014 12:46am Dec 30, 2014 2:07am Yoanna ALVAREZ MD VAGINAL BLEED N93.9: ABNORMAL UTERINE AND VAGINAL BLEEDING, UNSPECIFIED ICD10 Dec 30, 2014 1:16am Dec 30, 2014 12:49pm History of Procedures Procedure List No procedures recorded. Discharge Instructions Discharge Instructions Visit/Account #[id number] (December 30, 2014 12:46am - December 30, 2014 2:07am ) DISCHARGE INSTRUCTIONS Physician Documentation PROVIDER INSTRUCTIONS Discharge Activity/Weight Bearing Status No lifting more than 30 pounds for the next two weeks. Other Discharge Instructions Ibuprofen 600 mg every 6 hours as needed for pain. Iron - Ferrous Sulfate 325 mg three times a day. Colace 100 mg twice a day as needed for bowel care. WOUND/INCISION/CATHETER CARE Incision/Wound Care Keep clean and dry. Use soap and water externally, pat dry. REASON TO CALL PROVIDER Notify Physician if: You have the following: - a temperature greater than 101 degrees Fahrenheit - persistent nausea or vomiting - severe pain not relieved by your pain medication - any questions or concerns FOLLOW UP APPOINTMENTS Follow Up With Dr. Alvarez in two weeks. Appointment made for 12:15 , January 13, 2015 for follow up. Social History Social History No Social History Data. Immunizations Immunizations Patient Unit Number: [id number] Immunizations No immunizations recorded.
--- OUTSIDE RECORDS SUMMARY | 2016-09-19 16:39 | XMS REPORT | Summary of Care ---
Author Author Thaddeus Graham M.D. 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 Unavailable Unavailable Thaddeus Graham Unavailable Unavailable Unavailable Unavailable Functional Status Name Dates Details Functional status health issues are not documented Status: Name Dates Details Cognitive status health issues are not documented Status: Problems Name Dates Details Insomnia (780.52, G47.00) Status: Active Depression (311, F32.9) Status: Active Chronic GERD (530.81, K21.9) Status: [...] Active MRSA cellulitis (682.9, L03.90) Status: Active Hallucinations (780.1, R44.3) Status: Active Bipolar affective disorder (296.80, F31.9) Status: Active Cellulitis (682.9, L03.90) Status: Active Medications Name Dates Details PROzac 20 MG Oral Capsule TAKE 1 CAPSULE DAILY. * Start 20-Jul-2015 Active Florin Carbonate 300 MG Oral Capsule TAKE 1 CAPSULE 3 TIMES DAILY. * Refills: 0 * Start 20-Jul-2015 Active TraZODone HCl - 150 MG Oral Tablet TAKE 1 TABLET AT BEDTIME. * Quantity: 30 Refills: 3 Gladys M.D., Thaddeus * Start 22-Jul-2015 Active Benzonatate 100 MG Oral Capsule TAKE 1 CAPSULE 3 TIMES DAILY NEEDED. * Quantity: 30 Refills: 2 Maiden M.D., Thaddeus * Start 22-Jul-2015 Active Indomethacin 50 MG Oral Capsule TAKE 1 CAPSULE 3 TIMES DAILY NEEDED. * Quantity: 90 Refills: 1 Maiden M.D., Thaddeus * Start 28-Jul-2015 Active OxyCODONE HCl - 5 MG Oral Tablet TAKE 1 TABLET TID PRN * Quantity: 30 Refills: 0 Maiden M.D., Thaddeus * Start 28-Jul-2015 Active GuaiFENesin ER 600 MG Oral Tablet Extended Release 12 Hour TAKE 2 TABLETS EVERY 12 HOURS. * Quantity: 40 Refills: 0 Maiden M.D., Thaddeus * Start 28-Jul-2015 Active Cefdinir 300 MG Oral Capsule TAKE 1 CAPSULE TWICE DAILY UNTIL GONE. * Quantity: 14 Refills: 0 Maiden M.D., Thaddeus * Start 28-Jul-2015 Active LevoFLOXacin 750 MG Oral Tablet TAKE 1 TABLET DAILY. * Quantity: 20 Refills: 0 Maiden M.D., Thaddeus * Start 04-Aug-2015 Active Montelukast Sodium 10 MG Oral Tablet TAKE 1 TABLET AT BEDTIME. * Quantity: 30 Refills: 5 Maiden M.D., Thaddeus * Start Active Nitrofurantoin Monohyd Macro 100 MG Oral Capsule TAKE 1 CAPSULE TWICE DAILY UNTIL GONE. * Quantity: 20 Refills: 0 Maiden M.D., Thaddeus * Start Active Phenazopyridine HCl - 200 MG Oral Tablet 1 PO TID X 2 days * Quantity: 6 Refills: 0 Maiden M.D., Thaddeus * Start Active Sprintec 28 0.25-35 MG-MCG Oral Tablet TAKE 1 TABLET DAILY DIRECTED. * Quantity: 1 Refills: 0 Maiden M.D., Thaddeus * Start 18-Oct-2015 Active 28 Tablet Disp Pack PredniSONE 50 MG Oral Tablet take 1 daily for 5 days * Quantity: 5 Refills: 0 Maiden M.D., Thaddeus * Start 04-Nov-2015 Active Cefdinir 300 MG Oral Capsule TAKE 1 CAPSULE EVERY 12 HOURS UNTIL GONE. * Quantity: 20 Refills: 0 Maiden M.D., Thaddeus * Start 04-Nov-2015 Active Ventolin HFA 108 (90 Base) MCG/ACT Inhalation Aerosol Solution INHALE 2 PUFFS EVERY 4 HOURS NEEDED FOR COUGH AND WHEEZE. * Quantity: 1 Refills: 0 Maiden M.D., Thaddeus * Start 04-Nov-2015 Active 8 GM Inhaler TiZANidine HCl - 4 MG Oral Tablet TAKE 1 TABLET 3 TIMES DAILY NEEDED. * Quantity: 30 Refills: 0 Maiden M.D., Thaddeus * Start 02-Dec-2015 Active TraMADol HCl - 50 MG Oral Tablet TAKE 1 TO 2 TABLETS 4 TIMES DAILY NEEDED FOR PAIN. * Quantity: 60 Refills: 1 Maiden M.D., Thaddeus * Start 02-Dec-2015 Active Salsalate 750 MG Oral Tablet TAKE 1 TABLET 3 times daily * Quantity: 90 Refills: 6 Maiden M.D., Thaddeus * Start 05-Dec-2015 Active Celecoxib [...] day as needed * Quantity: 1 Refills: 2 Maiden M.D., Thaddeus * Start 04-Jan-2016 Active 35 GM Tube Clindamycin HCl - 300 MG Oral Capsule take 1 po QID * Quantity: 60 Refills: 0 Gladys M.D., Thaddeus * Start 05-Jan-2016 Active Haloperidol 5 MG Oral Tablet TAKE 1 TABLET AT BEDTIME. * Quantity: 10 Refills: 0 Maiden M.D., Thaddeus * Start 10-Jan-2016 Active Cefdinir 300 MG Oral Capsule TAKE 1 CAPSULE EVERY 12 HOURS UNTIL GONE. * Quantity: 20 Refills: 0 Gladys M.D., Thaddeus * Start 13-Jan-2016 Active Allergies and Adverse Reactions Name Dates Details Bactrim (Allergy) Status: Active Erythromycin Derivatives (Allergy) Status: Active Penicillins (Allergy) Status: Active Past Medical History Name Dates Details Bipolar affective disorder (296.80, F31.9) Status: Active Hepatitis C (070.70, B19.20) Status: Active Rib pain on right side (786.50, R07.81) Status: Active Seasonal allergies (477.9, J30.2) Status: Active Procedures Procedure Dates Details History of Tonsillectomy Procedures not documented Immunization Name Dates Details Fluzone Quadrivalent 0.5 ML Intramuscular Suspension Prefilled Syringe on: 10-Jan-2016 Fluzone Quadrivalent 0.5 ML Intramuscular Suspension Prefilled Syringe on: 10-Jan-2016 Family History Name Dates Details Family history [...] unknown Vital Signs Date Test Result Details 10-Jan-2016 15:16 Temperature 97.9 f Status: Comments: Method: Tympanic Heart Rate 78 /min Status: Comments: Location: ; Weight 216 lb Status: Physical Findings 98 Status: Comments: O2 Saturation Body Mass Index Calculated 39.51 kg/m2 Status: Body Surface Area Calculated 1.98 m2 Status: 03-Jan-2016 09:06 Temperature 97.5 f Status: Comments: Method: Tympanic Heart Rate 88 /min Status: Comments: Location: ; Weight 221 lb Status: Physical Findings 97 Status: Comments: O2 Saturation Body Mass Index Calculated 40.42 kg/m2 Status: Body Surface Area Calculated 1.99 m2 Status: Results Date Description Value Details 28-Dec-2015 08:19 POTASSIUM 1170 POTASSIUM 4.1 19-Oct-2016 14:18 C REACTIVE PROTEIN, CRP 2030 C [...] WBC PLATELET Adequate Range: Adequate ANISO Slight 09-Jan-2016 14:17 C REACTIVE PROTEIN, CRP 2030 C REACTIVE PROTEIN 0.8 mg/dL Range: 0.0-0.9 Comments: Variance from previous testing noted.----- 14:59 CBC w/ Manual Diff 7225 WBC 12.7 K/uL (Above high threshold) Range: 4.5-11.0 RBC 4.52 mil/uL Range: 3.60-5.00 HGB 13.1 g/dL Range: 12.0-16.0 HCT 39.4 % Range: 36.0-48.0 MCV 87.1 fL Range: 80.0-99.0 MCH 28.9 pg Range: 27.3-32.5 MCHC 33.2 % Range: 32.0-36.0 RDW 15.5 % (Above high threshold) Range: 11.6-14.8 PLATELETS 395 K/uL Range: 150-400 MPV 7.5 fL Range: 6.0-11.0 NEUTRO 8.8 K/uL (Above high threshold) Range: 2.0-6.9 SEGS 76 % Range: 37-80 BANDS 0 % Range: 0-7 LYMPH 19 % Range: 13-50 MONO 4 % Range: 0-12 EOSIN 1 % Range: 0-7 BASO 0 % Range: 0-3 CECILE LYMPH 0 % Range: 0-0 META 0 % Range: 0-0 MYELO 0 % Range: 0-0 PRO 0 % Range: 0-0 BLAST 0 % Range: 0-0 NUC RBC 0 /100 WBC Range: 0-0 SMUDGE 0 /100 WBC PLATELET Adequate Range: Adequate -Jan-2016 08:59 LITHIUM 1162 LITHIUM 0.33 13:48 C REACTIVE PROTEIN, CRP 2030 C REACTIVE PROTEIN <0.2 mg/dL Range: 0.0-0.9 14:11 CBC w/ Auto Diff 7150 WBC 11.9 K/uL (Above high threshold) Range: 4.5-11.0 RBC 5.01 mil/uL (Above high threshold) Range: 3.60-5.00 HGB 14.3 g/dL Range: 12.0-16.0 HCT 43.8 % Range: 36.0-48.0 MCV 87.5 fL Range: 80.0-99.0 MCH 28.6 pg Range: 27.3-32.5 MCHC 32.7 % Range: 32.0-36.0 RDW 15.7 % (Above high threshold) Range: 11.6-14.8 PLATELETS 347 K/uL Range: 150-400 MPV 7.1 fL Range: 6.0-11.0 %NEUTRO 65.6 % Range: 37.0-80.0 %LYMPHS 26.6 % Range: 13.0-50.0 %MONO 4.0 % Range: 0.0-12.0 %EOS 1.7 % Range: 0.0-7.0 %BASO 0.2 % Range: 0.0-2.5 %MAGY 1.8 % Range: 0.0-5.0 NEUTRO 7.8 K/uL (Above high threshold) Range: 2.0-6.9 LYMPHS 3.2 K/uL Range: 0.6-3.4 MONOS 0.5 K/uL Range: 0.0-0.9 EOS 0.2 K/uL Range: 0.0-0.7 BASO 0.0 K/uL Range: 0.0-0.2 Plan of Care Name Dates Details Planned Observations Planned Goals not documented Planned Encounters Appointment; Provider: Thaddeus Graham M.D. On 19-Jan-2016 14:00 Instructions Name Dates Details Instructions not documented Encounters Appointment; Thaddeus Graham M.D. Encounter Diagnosis: Problem not documented On 10-Jan-2016 15:15 Appointment; Thaddeus Graham M.D. Encounter Diagnosis: Problem not documented On 10-Jan-2016 10:45 Appointment; Thaddeus Graham M.D. Encounter Diagnosis: [...]
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
--- OUTSIDE RECORDS SUMMARY | 2016-09-19 16:40 | XMS REPORT | Summary of Care ---
Author Author Thaddeus Graham M.D. Organization Unknown Address Unknown Phone Unavailable Care Team Providers Care Director Electrical Engineering Name Role Phone Thaddeus Graham M.D. Unavailable [...] on right side (786.50, R07.81) Status: Active Chest wall pain (786.52, R07.89) Status: Active Cough due to bronchospasm (519.11, J98.01) Status: Active Seasonal allergies (477.9, J30.2) Status: Active Blood in urine (599.70, R31.9) Status: Active UTI (urinary tract infection) (599.0, N39.0) Status: Active control counseling (V25.09, Z30.9) Status: Active Contraception (V25.9, Z30.9) Status: Active Urinary incontinence (788.30, R32) Status: Active Cough (786.2, R05) Status: Active Pleurisy (511.0, R09.1) Status: Active Bronchitis (490, J40) Status: Active Medications Name Dates Details PROzac 20 MG Oral Capsule TAKE 1 CAPSULE DAILY. * Start 20-Jul-2015 Active [place] Carbonate 300 MG Oral Capsule TAKE 1 CAPSULE 3 TIMES DAILY. * Refills: 0 * Start 20-Jul-2015 Active TraZODone HCl - 150 MG Oral Tablet TAKE 1 TABLET AT BEDTIME. * Refills: 0 * Start 22-Jul-2015 Active Benzonatate 100 MG Oral Capsule TAKE 1 CAPSULE 3 TIMES DAILY NEEDED. * Quantity: 30 Refills: 2 [place] M.D., Thaddeus * Start 22-Jul-2015 Active Indomethacin 50 MG Oral Capsule TAKE 1 CAPSULE 3 TIMES DAILY NEEDED. * Quantity: 90 Refills: 1 [place] M.D., Thaddeus * Start 28-Jul-2015 Active OxyCODONE HCl - 5 MG Oral Tablet TAKE 1 TABLET EVERY 4 HOURS NEEDED FOR PAIN. * Quantity: 50 Refills: 0 [place] M.D., Thaddeus * Start 28-Jul-2015 Active GuaiFENesin ER 600 MG Oral Tablet Extended Release 12 Hour TAKE 2 TABLETS EVERY 12 HOURS. * Quantity: 40 Refills: 0 Glad[place] M.D., Thaddeus * Start 28-Jul-2015 Active Cefdinir 300 MG Oral Capsule TAKE 1 CAPSULE TWICE DAILY UNTIL GONE. * Quantity: 14 Refills: 0 [place] M.D., Thaddeus * Start 28-Jul-2015 Active LevoFLOXacin 750 MG Oral Tablet TAKE 1 TABLET DAILY. * Quantity: 20 Refills: 0 [place] M.D., Thaddeus * Start 04-Aug-2015 Active Montelukast Sodium 10 MG Oral Tablet TAKE 1 TABLET AT BEDTIME. * Quantity: 30 Refills: 5 [place] M.D., Thaddeus * Start Active Nitrofurantoin Monohyd Macro 100 MG Oral Capsule TAKE 1 CAPSULE TWICE DAILY UNTIL GONE. * Quantity: 20 Refills: 0 [place] M.D., Thaddeus * Start Active Phenazopyridine HCl - 200 MG Oral Tablet 1 PO TID X 2 days * Quantity: 6 Refills: 0 [place] M.D., Thaddeus * Start Active Sprintec 28 0.25-35 MG-MCG Oral Tablet TAKE 1 TABLET DAILY DIRECTED. * Quantity: 1 Refills: 0 [place] M.D., Thaddeus * Start 18-Oct-2015 Active 28 Tablet Disp Pack PredniSONE 50 MG Oral Tablet take 1 daily for 5 days * Quantity: 5 Refills: 0 Gladys M.D., Thaddeus * Start 04-Nov-2015 Active Cefdinir 300 MG Oral Capsule TAKE 1 CAPSULE EVERY 12 HOURS UNTIL GONE. * Quantity: 20 Refills: 0 Gladys M.D., Thaddeus * Start 04-Nov-2015 Active Ventolin HFA 108 (90 Base) MCG/ACT Inhalation Aerosol Solution INHALE 2 PUFFS EVERY 4 HOURS NEEDED FOR COUGH AND WHEEZE. * Quantity: 1 Refills: 0 Gladys M.D., Thaddeus * Start 04-Nov-2015 Active 8 GM Inhaler Allergies and Adverse Reactions Name [...] Urinalysis, reflex to Micro and Culture ([facility]) 8016 Ordered: Oct-2015 Immunization Name Dates Details [...] unknown Vital Signs Date Test Result Details 04-Nov-2015 08:53 BP Systolic 130 mm[Hg] Status: Comments: Location: LUE; Position: Sitting BP Diastolic 78 mm[Hg] Status: Comments: Location: LUE; Position: Sitting Temperature 97.7 f Status: Comments: Method: Oral Heart Rate 71 /min Status: Comments: Location: ; Weight 221.4 lb Status: Physical Findings 98 Status: Comments: O2 Saturation Body Mass Index Calculated 40.49 kg/m2 Status: Body Surface Area Calculated 2 m2 Status: 18-Oct-2015 11:02 BP Systolic 120 mm[Hg] Status: Comments: Location: LUE; Position: Sitting BP Diastolic 78 mm[Hg] Status: Comments: Location: LUE; Position: Sitting Temperature 98.5 f Status: Comments: Method: Oral Heart Rate 56 /min Status: Comments: Location: ; Weight 224 lb Status: Physical Findings 96 Status: Comments: O2 Saturation Body Mass Index Calculated 40.97 kg/m2 Status: Body Surface Area Calculated 2.01 m2 Status: 14:38 BP Systolic 118 mm[Hg] Status: Comments: [place] [facility] [place] Position: Sitting BP Diastolic 62 mm[Hg] Status: Comments: Location: [facility] [place]; Position: Sitting Temperature 98.2 f Status: Comments: Method: Tympanic Heart Rate 77 /min Status: Comments: Location: ; Physical Findings 98 Status: Comments: O2 Saturation Results Date Description Value Details 14:48 Urinalysis, reflex to Micro and Culture ([facility] ) 8016 pH 6.0 Range: 5.0-7.5 SP GRAVITY 1.020 Range: 1.010-1.030 APPEARANCE Turbid (Abnormal) Range: Clear COLOR Straw Range: Straw-Yellow PROTEIN Negative mg/dL Range: Negative-Trace GLUCOSE Negative mg/dL Range: Negative KETONES Negative mg/dL Range: Negative BILIRUBIN Negative Range: Negative BLOOD Negative Range: Negative UROBIL 0.2 EU/dL Range: 0.2-1.0 NITRITE Negative Range: Negative LEUKOCYTES 3+ (Abnormal) Range: Negative 14:02 Urine Microscopic UMIC WBC 6-10 /HPF (Abnormal) Range: 0-5 Comments: Specimen referred to Microbiology for Culture----- RBC 3-5 /HPF (Abnormal) Range: 0-2 BACTERIA 1+ /HPF (Abnormal) Range: Negative-Trace EPITH 3-5 /HPF Range: 0-10 U TRANSEPI 0-2 /HPF Range: 0-2 16:12 URINE CULTURE [id number] Comments: [facility] performed at: [facility] [address] [place], [address], Unified Communications Engineer: Nathan Baltazar D.O., MPHQuest Collection Date/Time: [id number] Results Received Date/Time: [id number] Reported Date/Time: [id number] FASTING:NOQuest performed at: [facility], [address] [place], [address], Unified Communications Engineer: Nathan Baltazar D.O., MPHQuest Collection Date/Time: [id number] Results Received Date/Time: [id number] Reported Date/Time: [id number] FASTING:NO CULTURE, URINE, ROUTINE SEE NOTE (Abnormal) Comments: CULTURE, URINE, ROUTINE MICRO NUMBER: [id number] TEST STATUS: FINAL SPECIMEN SOURCE : URINE SPECIMEN QUALITY: ADEQUATE RESULT: 10,000-50,000 CFU/mL of Escherichia coli E.coli --- INT ANGIE AMOX/CLAVULANATE S <=2 AMPICILLIN S <=2 AMP/SULBACTAM S <=2 CEFAZOLIN NR <=4 1 CEFEPIME S <=1 CEFTRIAXONE S <=1 CIPROFLOXACIN S <=0.25 ERTAPENEM S <=0.5 GENTAMICIN S <=1 IMIPENEM S <=0.25 LEVOFLOXACIN S <=0.12 NITROFURANTOIN S <=16 PIP/TAZOBACTAM S <=4 TOBRAMYCIN S <=1 TRIMETHOPRIM/SULFA S <=20S= Susceptible I=Intermediate R=Resistant *=Not TestedNR=Not Reported NN=See Therapy CommentsTHERAPY COMMENTS Note 1: ORAL therapy: A cefazolin ANGIE of < 32 predicts susceptibility to the oral agents cefaclor, cefdinir, cefpodoxime, cefprozil, cefuroxime, cephalexin, and loracarbef when used for therapy of uncomplicated UTIs due to E. coli, K. pneumoniae, and P. mirabilis. PARENTERAL therapy: A cefazolin ANGIE of > 8 indicates resistance to parenteral cefazolin. An alternate test method must be performed to to confirm susceptibility to parenteral cefazolin.[KS]----- 04-Nov-2015 14:59 XRay CHEST-PA & LAT Comments: Exam Date: 11/04/2015 09: 33Dictation Date: 11/04/2015 14:59 X CHEST PA & LAT Plan of Care Name Dates Details Planned Observations Planned Goals not documented Interventions Provided Labs/Procedures/Imaging* XRay CHEST-PA & LAT; Done: 14Pos6957 02:59PM Instructions Name Dates Details Instructions not documented [...]
--- OUTSIDE RECORDS SUMMARY | 2016-09-19 16:40 | XMS REPORT | Summary of Care ---
Author Author Thaddeus Graham M.D. Organization Unknown Address Unknown Phone Unavailable Care Team Providers Care Media Account Executive Name Role Phone Thaddeus Graham M.D. Unavailable [...] (urinary tract infection) (599.0, N39.0) Status: Active Medications Name Dates Details PROzac 20 MG Oral Capsule TAKE 1 CAPSULE DAILY. * Start 20-Jul-2015 Active [place] Carbonate 300 MG Oral Capsule TAKE 1 CAPSULE 3 TIMES DAILY. * Refills: 0 * Start 20-Jul-2015 Active TraZODone HCl - 150 MG Oral Tablet TAKE 1 TABLET AT BEDTIME. * Refills: 0 * Start 22-Jul-2015 Active Benzonatate 100 MG Oral Capsule TAKE 1 CAPSULE 3 TIMES DAILY NEEDED. * Quantity: 30 Refills: 2 Thaddeus Graham M.D. * Start 22-Jul-2015 Active Proventil HFA 108 (90 Base) MCG/ACT Inhalation Aerosol Solution INHALE 2 PUFFS EVERY 4 HOURS NEEDED * Quantity: 1 Refills: 6 [place] M.D., Thaddeus * Start 22-Jul-2015 Active 6.7 GM Inhaler Indomethacin 50 MG Oral Capsule TAKE 1 CAPSULE 3 TIMES DAILY NEEDED. * Quantity: 90 Refills: 1 Gladys M.D., Thaddeus * Start 28-Jul-2015 Active OxyCODONE HCl - 10 MG Oral Tablet take 1 po TID prn * Quantity: 80 Refills: 0 Gladys M.D., Thaddeus * Start 28-Jul-2015 Active GuaiFENesin ER 600 MG Oral Tablet Extended Release 12 Hour TAKE 2 TABLETS EVERY 12 HOURS. * Quantity: 40 Refills: 0 [place] M.D., Thaddeus * Start 28-Jul-2015 Active Cefdinir 300 MG Oral Capsule TAKE 1 CAPSULE TWICE DAILY UNTIL GONE. * Quantity: 14 Refills: 0 [place] M.D., Thaddeus * Start 28-Jul-2015 Active LevoFLOXacin 750 MG Oral Tablet TAKE 1 TABLET DAILY. * Quantity: 20 Refills: 0 Gladys M.D., Thaddeus * Start 04-Aug-2015 Active Montelukast Sodium 10 MG Oral Tablet TAKE 1 TABLET AT BEDTIME. * Quantity: 30 Refills: 5 [place] M.D., Thaddeus * Start Active Nitrofurantoin Monohyd Macro 100 MG Oral Capsule TAKE 1 CAPSULE TWICE DAILY UNTIL GONE. * Quantity: 20 Refills: 0 Gladys M.D., Thaddeus * Start Active Phenazopyridine HCl - 200 MG Oral Tablet 1 PO TID X 2 days * Quantity: 6 Refills: 0 Gladys M.D., Thaddeus * Start Active Allergies and Adverse Reactions Name Dates [...] unknown Vital Signs Date Test Result Details 14:38 BP Systolic 118 mm[Hg] Status: Comments: Location: LUE; Position: Sitting BP Diastolic 62 mm[Hg] Status: Comments: Location: LUE; Position: Sitting Temperature 98.2 f Status: Comments: Method: Oral Heart Rate 77 /min Status: Comments: Location: ; Physical Findings 98 Status: Comments: O2 Saturation Results Date Description Value Details 14:48 Urinalysis, reflex to Micro and Culture ([facility] ) 8016 pH 6.0 Range: 5.0-7.5 SP GRAVITY 1.020 Range: 1.010-1.030 APPEARANCE Turbid (Abnormal) Range: Clear COLOR Straw Range: Straw-Yellow PROTEIN Negative mg/dL Range: Negative-Trace GLUCOSE Negative mg/dL Range: Negative KETONES Negative mg/dL Range: Negative BILIRUBIN Negative Range: Negative BLOOD Negative Range: Negative UROBIL 0.2 EU/dL Range: 0.2-1.0 NITRITE Negative Range: Negative LEUKOCYTES 3+ (Abnormal) Range: Negative Plan of Care Name Dates Details Planned Observations Planned Goals not documented Planned Encounters Appointment; Provider: Thaddeus Graham M.D. On 18-Oct-2015 11:00 Interventions Provided Medication Changes* Nitrofurantoin Monohyd Macro 100 MG Oral Capsule - Start * Phenazopyridine HCl - 200 MG Oral Tablet - Start Instructions Name [...]
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
--- OUTSIDE RECORDS SUMMARY | 2016-09-19 16:40 | XMS REPORT ---
Author Author Vielka Manning Organization [facility] Address [address] [place] [address] Care Team Providers Care Heading Up Machine Operator Name Role Phone Vielka Manning Unavailable PROBLEMS Type Condition ICD9-CM Code GPB23-XU Code Onset Dates Condition Status SNOMED Code Problem Acute serous otitis media 381.01 Active 581707389 Problem Pain in joint, multiple sites 719.49 Active 86082481 Problem Unspecified viral hepatitis C without hepatic coma 070.70 Active 69491361 Problem Migraine with aura, intractable, without status migrainosus G43.119 Active 513803160 Problem Bipolar disorder, current episode depressed, mild or moderate severity , unspecified F31.30 Active 12723430 Problem Urinary tract infection, site not specified 599.0 Active 71266980 Problem Lumbago 724.2 Active 735395842 Problem flank pain 789.00 Active 342794332 Problem Abdominal pain, right upper quadrant 789.01 Active 426279295 Problem Acute gingivitis, plaque induced 523.00 Active 67077325 Problem Acute suppurative otitis media without spontaneous rupture of eardrum 382.00 Active 94991128 Problem elevated liver enzymes 794.8 Active 540412429 Problem Fatigue 780.79 Active 11259626 Problem Other acute otitis externa 380.22 Active 38449297 Problem Nondependent tobacco use disorder 305.1 Active 404554782 Problem Health examination of defined subpopulation V70.5 Active 547468997 Problem Amphetamine and other psychostimulant dependence, 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
--- OUTSIDE RECORDS SUMMARY | 2016-09-19 16:40 | XMS REPORT | Summary of Care ---
Author Author Thaddeus Graham M.D. Organization Unknown Address [address], [place] [id number] Phone Unavailable Care Team Providers Care Preform Machine Operator Name Role Phone Thaddeus Graham M.D. Unavailable [...] prn * Quantity: 40 Refills: 0 Thaddeus rGaham M.D.* Started 28-Jul-2015 ActiveGuaiFENesin ER 600 MG [...] Viral RNA, Quantitative, RT- PCR w/Reflex to [id number] Comments: [facility] performed at: [facility], [facility], [address] [place] [address], [address], Rn Sane: Jose Shay MDQuest Collection Date/Time: [id number] Results Received Date/Time: [id number] Reported Date/Time: FASTING:NO HCV RNA, QUANTITATIVE REAL TIME PCR [id number] IU/mL (Above high threshold) Comments: [[facility]]----- HCV RNA, QUANTITATIVE REAL TIME PCR 6.64 LogIU/mL (Above high threshold) Comments: REFERENCE RANGE: HCV RNA, PCR, QUANT: <15 IU/mL HCV RNA, PCR, QUANT: <1.18 LogIU/mLThis test was performed using the RUSLAN(R) AmpliPrep/RUSLAN(R)TaqMan(R) HCV Test, v2.0.The performance characteristics of this assay have beendetermined by [facility]. Performance characteristicsrefer to the analytical performance of the test.For additional information, please refer [email or web address]/faq [email or web address](This link is being provided for informational/educational purposesonly. )[[facility]]----- 29-Jul-2015 10:19 Hepatitis C Viral RNA, Genotype, LIPA [id number] Comments : [facility] performed at: [facility], [facility]- [address], [address], Rn Sane: Jose Shay MDQuest Collection Date/Time: [id number] Results Received Date/Time: [id number] Reported Date/Time: [id number] FASTING:NO HCV GENOTYPE, LIPA GENOTYPE 1a (Better) Comments: REFERENCE RANGE: NOT DETECTEDThe method used in this test is RT-PCR and reversehybridization (Line Probe) of the 5' UTR and coreregion of the HCV genome.This test was developed and its analytical performancecharacteristics have been determined by [facility].It has not been cleared or approved by the U.S. Food andDrug Administration. The FDA has determined that suchclearance or approval is not necessary. This assay hasbeen validated pursuant to the CLIA regulations and isused for clinical purposes.http://[email or web address] /faq/ HCVGenotyping[[facility]]----- Plan of Care Planned Observations* Name Dates [...]
--- OUTSIDE RECORDS SUMMARY | 2016-09-19 16:41 | XMS REPORT ---
Author Author Cliff Gardner Organization [employer] Address Unknown Phone Unavailable Care Team Providers Care Teletype Operator Name Role Phone Cliff Gardner CP Unavailable Allergies No Known Allergies Problems Problem Type Condition ICD-9 Code Onset Dates Condition Status Assessment elevated liver enzymes 794.8 Active Problem Acute suppurative otitis media without spontaneous rupture of eardrum 382.00 Active Problem Acute gingivitis, plaque induced 523.00 Active Problem Amphetamine and other psychostimulant dependence, 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 Problem Nondependent tobacco use disorder 305.1 Active Problem Acute serous otitis media 381.01 Active Problem Health examination of defined subpopulation V70.5 Active Problem Other acute otitis externa 380.22 Active Problem Fatigue 780.79 Active Problem elevated liver enzymes 794.8 Active Medications No Known Medications Results No Known Results Summary Purpose eClinicalWorks Submission
--- OUTSIDE RECORDS SUMMARY | 2016-09-19 16:41 | XMS REPORT | Summary of Care ---
Author Author Thaddeus Graham M.D. Organization Unknown Address [address], [place] [id number] Phone Unavailable Care Team Providers Care Assistant Hall Director Name Role Phone Thaddeus Graham M.D. [...] Active Seasonal allergies (477.9, J30.2) Status: Active Medications Name Dates Details PROzac [...] TID prn * Quantity: 80 Refills: 0 Thaddeus Graham M.D.* Started 28-Jul-2015 [...] Refills: 0 Thaddeus Graham M.D.* Started 04-Aug-2015 ActiveMontelukast Sodium 10 MG Oral Tablet TAKE 1 TABLET AT BEDTIME. * Quantity: 30 Refills: 5 Thaddeus Graham M.D.* Started Active Allergies and Adverse Reactions Name Dates [...] Viral RNA, Quantitative, RT- PCR w/Reflex to [id number] Comments: [facility] performed at: [facility], [employer], [address] [place] [address], [id number], Tool Dispatcher: Jose Shay MDQuest Collection Date/Time: [id number] Results Received Date/Time: [id number] Reported Date/Time: [id number] FASTING:NO HCV RNA, QUANTITATIVE REAL TIME PCR [id number] IU/mL (Above high threshold) Comments: [[facility]]----- HCV RNA, QUANTITATIVE REAL TIME PCR 6.64 LogIU/mL (Above high threshold) Comments: REFERENCE RANGE: HCV RNA, PCR, QUANT: <15 IU/mL HCV RNA, PCR, QUANT: <1.18 LogIU/mLThis test was performed using the RUSLAN(R) AmpliPrep/RUSLAN(R)TaqMan(R) HCV Test, v2.0.The performance characteristics of this assay have beendetermined by [employer] Performance characteristicsrefer to the analytical performance of the test.For additional information, please refer [email or web address].KonTEM/faq /[email or web address](This link is being provided for informational/educational purposesonly. )[[facility]]----- 29-Jul-2015 10:19 Hepatitis C Viral RNA, Genotype, LIPA [id number] Comments : [employer] performed at: [facility], [employer] [employer], [address] [place] [address], [phone], Tool Dispatcher: Jose Shay MDQuest Collection Date/Time: [id number] Results Received Date/Time: [id number] Reported Date/Time: [id number] FASTING:NO HCV GENOTYPE, LIPA GENOTYPE 1a (Better) Comments: REFERENCE RANGE: NOT DETECTEDThe method used in this test is RT-PCR and reversehybridization (Line Probe) of the 5' UTR and coreregion of the HCV genome.This test was developed and its analytical performancecharacteristics have been determined by [employer].It has not been cleared or approved by the U.S. Food andDrug Administration. The FDA has determined that suchclearance or approval is not necessary. This assay hasbeen validated pursuant to the CLIA regulations and isused for clinical purposes.http://education.KonTEM /faq/ HCVGenotyping[[facility]]----- Plan of Care Planned Observations* Name [...]
--- OUTSIDE RECORDS SUMMARY | 2016-09-19 16:41 | XMS REPORT | Summary of Care ---
Author Author Alisa Cloud Organization Unknown Address [address] [place] [address] Phone Unavailable Care Team Providers Care Business Services Manager Name Role Phone Avril Jama CLARK Unavailable [...] Status: Active Medications Name Dates Details PROzac 40 MG Oral Capsule TAKE 1 CAPSULE DAILY. * Started 20-Jul-2015 Active Allergies and Adverse [...]
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
--- OUTSIDE RECORDS SUMMARY | 2016-09-19 16:41 | XMS REPORT | Summary of Care ---
Author Author Gladys Jamil, Thaddeus Organization Unknown Address Unknown Phone Unavailable Care Team Providers Care Safety Grooving Machine Operator Name Role Phone Thaddeus Graham M.D. Unavailable Unavailable Yonatan Graham M.D. Unavailable Unavailable GladysThaddeus mortensen Unavailable Unavailable Unavailable Unavailable Functional Status Name [...] Status: Active Costochondritis (733.6, M94.0) Status: Active Rib pain on right side (786.50, R07.81) Status: Active Seasonal allergies (477.9, J30.2) Status: Active Blood in urine (599.70, R31.9) Status: Active UTI (urinary tract infection) (599.0, N39.0) Status: Active control counseling (V25.09, Z30.09) Status: Active Contraception (V25.9, Z30.9) Status: Active Urinary incontinence (788.30, R32) Status: Active Pleurisy (511.0, R09.1) Status: Active Bronchitis (490, J40) Status: Active Chest wall pain (786.52, R07.89) Status: Active Pulled muscle (848.9, T14.8) Status: Active Neurodermatitis (698.3, L28.0) Status: Active MRSA cellulitis (682.9, L03.90) Status: Active Skin ulcer (707.9, L98.499) Status: Active MRSA infection (041.12, A49.02) Status: Active Viral hepatitis C without hepatic coma (070.70, B19.20) Status: Active Bipolar affective disorder (296.80, F31.9) Status: Active Anxiety disorder (300.00, F41.9) Status: Active Hallucinations (780.1, R44.3) Status: Active Marijuana abuse (305.20, F12.10) Status: Active Alcoholism, chronic (303.90, F10.20) Status: Active Weight loss counseling, encounter for (V65.3, Z71.3) Status: Active Low back pain (724.2, M54.5) Status: Active Obesity (278.00, E66.9) Status: Active Cellulitis (682.9, L03.90) Status: Active Cough due to bronchospasm (519.11, J98.01) Status: Active Medications Name Dates Details FLUoxetine HCl - 40 MG Oral Capsule take 1 capsule daily Quantity: 30 [place] M.D., Thaddeus * Start 20-Jul-2015 Active TraZODone HCl - 150 MG Oral Tablet TAKE ONE TABLET BY MOUTH AT BEDTIME * Quantity: 30 Refills: 2 [place] M.D., Thaddeus * Start 19-Jun-2016 Active Benzonatate 100 MG Oral Capsule TAKE 1 CAPSULE 3 TIMES DAILY NEEDED. * Quantity: 30 Refills: 2 [place] M.D., Thaddeus * Start 22-Jul-2015 Active GuaiFENesin ER 600 MG TB12 TAKE 2 TABLETS EVERY 12 HOURS. * Quantity: 40 Refills: 0 [place] M.D., Thaddeus * Start 28-Jul-2015 Active Montelukast Sodium 10 MG Oral Tablet TAKE 1 TABLET AT BEDTIME. * Quantity: 30 Refills: 5 [place] M.D., Thaddeus * Start Active Sprintec 28 0.25-35 MG-MCG Oral Tablet TAKE 1 TABLET DAILY DIRECTED. * Quantity: 1 Refills: 0 Glad[place] M.D., Thaddeus * Start 18-Oct-2015 Active 28 Tablet Disp Pack Ventolin HFA 108 (90 Base) MCG/ACT Inhalation Aerosol Solution INHALE 2 PUFFS EVERY 4 HOURS NEEDED FOR COUGH AND WHEEZE. * Quantity: 1 Refills: 0 [place] M.D., Thaddeus * Start 04-Nov-2015 Active 8 GM Inhaler Celecoxib 200 MG Oral Capsule take 1 capsule daily * Quantity: 30 Refills: 0 [place] M.D., Thaddeus * Start 05-Dec-2015 Active ALPRAZolam XR 2 MG Oral Tablet Extended Release 24 Hour Take one tablet by mouth daily * Quantity: 30 Refills: 2 [place] M.D., Thaddeus * Start 06-May-2016 Active Lidocaine 5 % External Ointment Apply to painful area four times a day as needed * Quantity: 1 Refills: 2 [place] M.D., Thaddeus * Start 04-Jan-2016 Active 35 GM Tube Clindamycin HCl - 300 MG Oral Capsule take 1 po QID * Quantity: 60 Refills: 0 Gladys M.D., Thaddeus * Start 05-Jan-2016 Active Cefdinir 300 MG Oral Capsule TAKE 1 CAPSULE EVERY 12 HOURS UNTIL GONE. * Quantity: 20 Refills: 0 [place] M.D., Thaddeus * Start 13-Jan-2016 Active OLANZapine 10 MG Oral Tablet Dispersible TAKE 1 TABLET Daily at HS * Quantity: 30 Refills: 3 [place] M.D., Thaddeus * Start 20-Jan-2016 Active Mupirocin 2 % External Ointment APPLY A SMALL AMOUNT 3 TIMES DAILY DIRECTED. * Quantity: 1 Refills: 2 [place] M.D., Thaddeus * Start 20-Jan-2016 Active 22 GM Tube [place] Carbonate ER 450 MG Oral Tablet Extended Release TAKE 2 TABLETS AT BEDTIME. * Quantity: 60 Refills: 5 Gladys M.D.Thaddeus * Start 02-Feb-2016 Active Acamprosate Calcium 333 MG Oral Tablet Delayed Release TAKE 1 TABLET 3 TIMES DAILY. * Quantity: 90 Refills: 0 [place] M.DYonatan Heredia * Start 09-Mar-2016 Active Saxenda 18 MG/3ML Subcutaneous Solution Pen-injector Inject daily before breakfast. Start at 0.6mg and increase by 0.6mg weekly until getting to 3mg daily. * Quantity: 1 Refills: 5 [place] M.D.Thaddeus * Start 27-Mar-2016 Active 3 ML Pen (5 Pens) [place] ULtrafine 31 guage 3/8 inch pen needles * Quantity: 100 Refills: 11 Gladys M.D., Thaddeus * Start 27-Mar-2016 Active Minocycline HCl - 100 MG Oral Capsule TAKE ONE CAPSULE BY MOUTH TWICE A DAY * Quantity: 60 Refills: 5 Gladys M.D.Thaddeus * Start 27-Jun-2016 Active HydrOXYzine Pamoate 100 MG Oral Capsule 1 PO BID PRN anxiety attack * Quantity: 20 Refills: 2 Thaddeus Graham M.D. * Start 27-Apr-2016 Active Lidocaine 5 % External Ointment Apply to painful area four times a day as needed * Quantity: 1 Refills: 2 [place] Thaddeus Jamil * Start 27-Apr-2016 Active 35 GM Tube Mupirocin 2 % External Ointment APPLY A SMALL AMOUNT 3 TIMES DAILY DIRECTED. * Quantity: 1 Refills: 2 Thaddeus Graham M.D. * Start 01-May-2016 Active 22 GM Tube Allergies and Adverse Reactions Name Dates Details Bactrim (Allergy) Status: Active Erythromycin Derivatives (Allergy) Status: Active Penicillins (Allergy) Status: Active Past Medical History Name Dates Details Bipolar affective disorder (296.80, F31.9) Status: Active Rib pain on right side (786.50, R07.81) Status: Active Seasonal allergies (477.9, J30.2) Status: Active Viral hepatitis C without hepatic coma (070.70, B19.20) Status: Active Procedures Procedure Dates Details History [...] unknown Vital Signs Date Test Result Details No Known Vitals to report Results Date Description Value Details Results not documented Plan of Care Name Dates Details Planned Observations Planned Goals not documented Instructions Name Dates Details Instructions not documented Encounters Appointment; Thaddeus Graham M.D. Encounter Diagnosis: Problem not documented On 02-Jul-2016 08:30 Appointment; Elizabeth Luz Encounter Diagnosis: Problem not documented On 21-May-2016 13:45 Appointment; Thaddeus Graham M.D. Encounter Diagnosis: Problem not documented On 11-May-2016 16:00 Appointment; Thaddeus Graham M.D. Encounter Diagnosis: Problem not documented On 01-May-2016 15:30 Appointment; Thaddeus Graham M.D. Encounter Diagnosis: Problem not documented On 27-Apr-2016 08:30 Appointment; Thaddeus Graham M.D. Encounter Diagnosis: Problem not documented On 27-Mar-2016 09:00 Appointment; Yonatan Graham M.D. Encounter Diagnosis: Problem not documented On 09-Mar-2016 13:00 Appointment; Thaddeus Graham M.D. Encounter Diagnosis: Problem not documented On 20-Jan-2016 09:45 Appointment; Thaddeus Graham M.D. Encounter Diagnosis: Problem [...]
--- OUTSIDE RECORDS SUMMARY | 2016-09-19 16:42 | XMS REPORT ---
Author YAMILA Root Organization eClinicalWorks Address Unknown Phone Unavailable Care Team Providers Care Keel Press Operator Name Role Phone YAMILA WATSON CP Unavailable Allergies No Known Allergies Problems Problem Type Condition ICD-9 Code Onset Dates Condition Status Problem Acute sinusitis, unspecified 461.9 Active Problem Absence of menstruation 626.0 Active Problem Cough 786.2 Active Problem Acute upper respiratory infections of unspecified site 465.9 Active Problem Asthma, unspecified, unspecified status 493.90 Active Problem Acute serous otitis media 381.01 Active Problem Special screening examination, human papillomavirus [HPV] V73.81 Active Problem Urinary frequency 788.41 Active Problem Screening for malignant neoplasm of the cervix V76.2 Active Problem Obesity, unspecified 278.00 Active Medications No Known Medications Results No Known Results Summary Purpose eClinicalWorks Submission
--- OUTSIDE RECORDS SUMMARY | 2016-09-19 16:42 | XMS REPORT | Summary of Care ---
Author Author Thaddeus Graham M.D. Organization Unknown Address Unknown Phone Unavailable Care Team Providers Care Network Control Supervisor Name Role Phone Thaddeus Graham M.D. [...] 1 CAPSULE DAILY. * Start 20-Jul-2015 Active [place] Carbonate 300 MG Oral Capsule TAKE 1 [...] DAILY NEEDED. * Quantity: 90 Refills: 1 [place] M.D., Thaddeus * Start 28-Jul-2015 Active OxyCODONE HCl - 5 MG Oral Tablet TAKE 1 TABLET EVERY 4 HOURS NEEDED FOR PAIN. * Quantity: 50 Refills: 0 [place] M.D., Thaddeus * Start 28-Jul-2015 Active GuaiFENesin ER 600 MG Oral Tablet Extended Release 12 Hour TAKE 2 TABLETS EVERY 12 HOURS. * Quantity: 40 Refills: 0 Gladys M.D., Thaddeus * Start 28-Jul-2015 Active Cefdinir 300 MG Oral Capsule TAKE 1 CAPSULE TWICE DAILY UNTIL GONE. * Quantity: 14 Refills: 0 [place] M.D., Thaddeus * Start 28-Jul-2015 Active LevoFLOXacin 750 MG Oral Tablet TAKE 1 TABLET DAILY. * Quantity: 20 Refills: 0 [place] M.D., Thaddeus * Start 04-Aug-2015 Active Montelukast Sodium 10 MG Oral Tablet TAKE 1 TABLET AT BEDTIME. * Quantity: 30 Refills: 5 Gladys M.D., Thaddeus * Start Active Nitrofurantoin Monohyd Macro 100 MG Oral Capsule TAKE 1 CAPSULE TWICE DAILY UNTIL GONE. * Quantity: 20 Refills: 0 [place] M.D., Thaddeus * Start Active Phenazopyridine HCl - 200 MG Oral Tablet 1 PO TID X 2 days * Quantity: 6 Refills: 0 [place] M.D., Thaddeus * Start Active Sprintec 28 0.25-35 MG-MCG Oral Tablet TAKE 1 TABLET DAILY DIRECTED. * Quantity: 1 Refills: 0 [place] M.D., Thaddeus * Start 18-Oct-2015 Active 28 Tablet Disp Pack PredniSONE 50 MG Oral Tablet take 1 daily for 5 days * Quantity: 5 Refills: 0 Gladys M.D., Thaddeus * Start 04-Nov-2015 Active Cefdinir 300 MG Oral Capsule TAKE 1 CAPSULE EVERY 12 HOURS UNTIL GONE. * Quantity: 20 Refills: 0 [place] M.D., Thaddeus * Start 04-Nov-2015 Active Ventolin HFA 108 (90 Base) MCG/ACT Inhalation Aerosol Solution INHALE 2 PUFFS EVERY 4 HOURS NEEDED FOR COUGH AND WHEEZE. * Quantity: 1 Refills: 0 [place] M.D., Thaddeus * Start 04-Nov-2015 Active 8 GM Inhaler TiZANidine HCl - 4 MG Oral Tablet TAKE 1 TABLET 3 TIMES DAILY NEEDED. * Quantity: 30 Refills: 0 Gladys M.D., Thaddeus * Start 02-Dec-2015 Active TraMADol HCl - 50 MG Oral Tablet TAKE 1 TO 2 TABLETS 4 TIMES DAILY NEEDED FOR PAIN. * Quantity: 60 Refills: 1 [place] M.D., Thaddeus * Start 02-Dec-2015 Active Allergies and Adverse Reactions Name Dates [...] Tonsillectomy Urinalysis, reflex to Micro and Culture ([facility]) 8016 Ordered: Oct-2015 Immunization Name Dates [...] Physical Findings 98 Status: Comments: O2 Saturation 04-Nov-2015 08:53 BP Systolic 130 mm[Hg] Status: Comments: Location: LUE; Position: Sitting BP Diastolic 78 mm[Hg] Status: Comments: Location: LUE; Position: Sitting Temperature 97.7 f Status: Comments: Method: Tympanic Heart Rate 71 /min Status: Comments: Location: ; Weight 221.4 lb Status: Physical Findings 98 Status: Comments: O2 Saturation Body Mass Index Calculated 40.49 kg/m2 Status: Body Surface Area Calculated 2 m2 Status: Results Date Description Value Details 04-Nov-2015 14:59 XRay CHEST-PA & LAT Comments: Exam Date: 11/04/2015 09: 33Dictation Date: 11/04/2015 14:59 X CHEST PA & LAT Plan of Care Name Dates Details Planned Observations Planned Goals not documented Planned Encounters Appointment; Provider: Thaddeus Graham M.D. On 16-Dec-2015 16:15 Interventions Provided Medication Changes* PredniSONE 50 MG Oral Tablet - Renew * TiZANidine HCl - 4 MG Oral Tablet - Start * TraMADol HCl - 50 MG Oral Tablet - Start Instructions Name [...]
--- OUTSIDE RECORDS SUMMARY | 2016-09-19 16:42 | XMS REPORT | Summary of Care ---
Author Author Thaddeus Graham M.D. Organization Unknown Address Unknown Phone Unavailable Care Team Providers Care Pig Caster Name Role Phone Thaddeus Graham M.D. Unavailable [...] 1 CAPSULE DAILY. * Start 20-Jul-2015 Active [place] Carbonate 300 MG Oral Capsule TAKE 1 [...] HOURS NEEDED * Quantity: 1 Refills: 6 [place] M.D., Thaddeus * Start 22-Jul-2015 Active 6.7 [...] 12 HOURS. * Quantity: 40 Refills: 0 [place] M.D., Thaddeus * Start 28-Jul-2015 Active Cefdinir 300 MG Oral Capsule TAKE 1 CAPSULE TWICE DAILY UNTIL GONE. * Quantity: 14 Refills: 0 [place] M.D., Thaddeus * Start 28-Jul-2015 Active LevoFLOXacin 750 MG Oral Tablet TAKE 1 TABLET DAILY. * Quantity: 20 Refills: 0 Gladys M.D., Thaddeus * Start 04-Aug-2015 Active Montelukast Sodium 10 MG Oral Tablet TAKE 1 TABLET AT BEDTIME. * Quantity: 30 Refills: 5 [place] M.D., Thaddeus * Start Active Nitrofurantoin Monohyd [...] 14:48 Urinalysis, reflex to Micro and Culture ([facility] ) 8016 pH 6.0 Range: 5.0-7.5 [...] Graham M.D. On 18-Oct-2015 11:00 Interventions Provided Labs/Procedures/Imaging* Urinalysis, reflex to Micro and Culture ([facility]) 8016; Done: [id number] 02:42PM Instructions Name Dates Details Instructions not documented [...]
--- OUTSIDE RECORDS SUMMARY | 2016-09-19 16:42 | XMS REPORT ---
Author Author Vielka Manning Organization [facility] Address [address] [place] [address] Care Team Providers Care Manager Intern Name Role Phone Vielka Manning Unavailable PROBLEMS Type Condition ICD9-CM Code OPP53-OV Code Onset Dates Condition Status SNOMED Code Problem Acute serous otitis media 381.01 Active 498467518 Problem Pain in joint, multiple sites 719.49 Active 17311239 Problem Unspecified viral hepatitis C without hepatic coma 070.70 Active 92339790 Problem Migraine with aura, intractable, without status migrainosus G43.119 Active 622584872 Problem Bipolar disorder, current episode depressed, mild or moderate severity , unspecified F31.30 Active 68460230 Problem Urinary tract infection, site not specified 599.0 Active 66993727 Problem Lumbago 724.2 Active 948466309 Problem flank pain 789.00 Active 083728303 Problem Abdominal pain, right upper quadrant 789.01 Active 353573825 Problem Acute gingivitis, plaque induced 523.00 Active 93854646 Problem Acute suppurative otitis media without spontaneous rupture of eardrum 382.00 Active 68100455 Problem elevated liver enzymes 794.8 Active 916804504 Problem Fatigue 780.79 Active 96301376 Problem Other acute otitis externa 380.22 Active 71785108 Problem Nondependent tobacco use disorder 305.1 Active 462111557 Problem Health examination of defined subpopulation V70.5 Active 036675634 Problem Amphetamine and other psychostimulant dependence, 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
--- OUTSIDE RECORDS SUMMARY | 2016-09-19 16:42 | XMS REPORT | Summary of Care ---
Author Author Thaddeus Graham M.D. Organization Unknown Address [address] [place], [place] [id number] Phone Unavailable Care Team Providers Care Wood Floor Layer Name Role Phone Pedro Luis Alisa Unavailable Unavailable Thaddeus Graham M.D. Unavailable Unavailable Avril Jama PP Unavailable Unavailable Unavailable Functional Status Functional Status Health Issues* Name Dates Details Functional status health issues are not documented Status: Cognitive Status Health Issues* Name Dates Details Cognitive status health issues are not documented Status: Problems Name Dates Details Cough (786.2, R05) Status: Active Insomnia (780.52, G47.00) Status: Active Depression (311, F32.9) Status: Active Bronchitis (490, J40) Status: Active Rib pain on right side (786.50, R07.81) Status: Active Bipolar illness (296.80, F31.9) Status: Active Seasonal allergies (477.9, J30.2) Status: Active Hepatitis C (070.70, B19.20) Status: Active Chronic GERD (530.81, K21.9) Status: Active Chronic diarrhea (787.91, K52.9) Status: Active Headache, chronic daily (784.0, R51) Status: Active Chest wall pain (786.52, R07.89) Status: Active Medications Name Dates Details PROzac 20 MG Oral Capsule TAKE 1 CAPSULE DAILY. * Started 20-Jul-2015 ActiveLithium Carbonate 300 MG Oral Capsule TAKE 1 CAPSULE 3 TIMES DAILY. * Refills: 0 * Started 20-Jul-2015 ActivePromethazine-Codeine 6.25-10 MG/5ML Oral Syrup Take 5 - 7.5 ml at bedtime for cough * Quantity: 1 Refills: 0 Keylakeshia Alisa * Started 20-Jul-2015 [id number] ML Bottle TraZODone HCl - 150 MG [...] Refills: 3 Thaddeus Graham M.D.* Started 22-Jul-2015 Fktlze647 ML Bottle Proventil HFA 108 (90 Base) MCG/ACT Inhalation Aerosol Solution INHALE 2 PUFFS EVERY 4 HOURS NEEDED * Quantity: 1 Refills: 6 Thaddeus Graham M.D.* Started 22-Jul-2015 Active6.7 GM Inhaler Indomethacin 50 MG Oral Capsule TAKE 1 CAPSULE 3 TIMES DAILY NEEDED. * Quantity: 90 Refills: 1 Thaddeus Graham M.D.* Started 28-Jul-2015 ActivePredniSONE 50 MG Oral Tablet take 1 daily for 5 days * Quantity: 5 Refills: 0 Thaddeus Graham M.D.* Started 28-Jul-2015 ActiveOxyCODONE HCl [...] unknown Vital Signs Date Test Result Details 28-Jul-2015 15:06 BP Systolic 128 mm[Hg] Status: [...]
--- OUTSIDE RECORDS SUMMARY | 2016-09-19 16:43 | XMS REPORT | Summary of Care ---
Author Author Gladys Jamil, Thaddeus Organization Unknown Address Unknown Phone Unavailable Care Team Providers Care Cancer Researcher Name Role Phone Thaddeus Graham M.D. Unavailable [...] Capsule take 1 capsule daily Quantity: 30 [place] M.D., Thaddeus * Start 20-Jul-2015 Active TraZODone HCl - 150 MG Oral Tablet TAKE ONE TABLET BY MOUTH AT BEDTIME * Quantity: 30 Refills: 2 [place] M.D., Thaddeus * Start 19-Jun-2016 Active Benzonatate 100 MG Oral Capsule TAKE 1 CAPSULE 3 TIMES DAILY NEEDED. * Quantity: 30 Refills: 2 [place] M.D., Thaddeus * Start 22-Jul-2015 Active GuaiFENesin ER 600 MG TB12 TAKE 2 TABLETS EVERY 12 HOURS. * Quantity: 40 Refills: 0 [place] M.D., Thaddeus * Start 28-Jul-2015 Active Montelukast Sodium 10 MG Oral Tablet TAKE 1 TABLET AT BEDTIME. * Quantity: 30 Refills: 5 [place] M.D., Thaddeus * Start Active Sprintec 28 0.25-35 MG-MCG Oral Tablet TAKE 1 TABLET DAILY DIRECTED. * Quantity: 1 Refills: 0 Gladys M.D., Thaddeus * Start 18-Oct-2015 Active 28 Tablet Disp Pack Ventolin HFA 108 (90 Base) MCG/ACT Inhalation Aerosol Solution INHALE 2 PUFFS EVERY 4 HOURS NEEDED FOR COUGH AND WHEEZE. * Quantity: 1 Refills: 0 [place] M.D., Thaddeus * Start 04-Nov-2015 Active 8 GM Inhaler Celecoxib 200 MG Oral Capsule take 1 capsule daily * Quantity: 30 Refills: 0 [place] M.D., Thaddeus * Start 05-Dec-2015 Active ALPRAZolam XR 2 MG Oral Tablet Extended Release 24 Hour Take one tablet by mouth daily * Quantity: 30 Refills: 2 [place] M.D., Thaddeus * Start 06-May-2016 Active Lidocaine 5 % External Ointment Apply to painful area four times a day as needed * Quantity: 1 Refills: 2 [place] M.D., Thaddeus * Start 04-Jan-2016 Active 35 GM Tube Clindamycin HCl - 300 MG Oral Capsule take 1 po QID * Quantity: 60 Refills: 0 Gladys M.D., Thaddeus * Start 05-Jan-2016 Active Cefdinir 300 MG Oral Capsule TAKE 1 CAPSULE EVERY 12 HOURS UNTIL GONE. * Quantity: 20 Refills: 0 [place] M.D., Thaddeus * Start 13-Jan-2016 Active OLANZapine 10 MG Oral Tablet Dispersible TAKE 1 TABLET Daily at HS * Quantity: 30 Refills: 3 [place] M.D., Thaddeus * Start 20-Jan-2016 Active Mupirocin 2 % External Ointment APPLY A SMALL AMOUNT 3 TIMES DAILY DIRECTED. * Quantity: 1 Refills: 2 [place] M.D., Thaddeus * Start 20-Jan-2016 Active 22 GM Tube [place] Carbonate ER 450 MG Oral Tablet Extended Release TAKE 2 TABLETS AT BEDTIME. * Quantity: 60 Refills: 5 Gladys M.D.Thaddeus * Start 02-Feb-2016 Active Acamprosate Calcium 333 MG Oral Tablet Delayed Release TAKE 1 TABLET 3 TIMES DAILY. * Quantity: 90 Refills: 0 [place] M.DYonatan Heredia * Start 09-Mar-2016 Active Saxenda 18 MG/3ML Subcutaneous Solution Pen-injector Inject daily before breakfast. Start at 0.6mg and increase by 0.6mg weekly until getting to 3mg daily. * Quantity: 1 Refills: 5 [place] M.D.Thaddeus * Start 27-Mar-2016 Active 3 ML Pen (5 Pens) [place] ULtrafine 31 guage 3/8 inch pen needles * Quantity: 100 Refills: 11 Gladys M.D., Thaddeus * Start 27-Mar-2016 Active Minocycline HCl - 100 MG Oral Capsule TAKE ONE CAPSULE BY MOUTH TWICE A DAY * Quantity: 60 Refills: 5 Gladys M.D.Thaddeus * Start 27-Jun-2016 Active HydrOXYzine Pamoate 100 MG Oral Capsule 1 PO BID PRN anxiety attack * Quantity: 20 Refills: 2 [place] Thaddesu Jamil * Start 27-Apr-2016 Active Lidocaine 5 % External Ointment Apply to painful area four times a day as needed * Quantity: 1 Refills: 2 [place] Loulou, Thaddeus * Start 27-Apr-2016 Active 35 GM Tube Mupirocin 2 % External Ointment APPLY A SMALL AMOUNT 3 TIMES DAILY DIRECTED. * Quantity: 1 Refills: 2 [place] Thaddeus Jamil * Start 01-May-2016 Active 22 GM Tube [...] Observations Planned Goals not documented Interventions Provided Medication Changes* Minocycline HCl - 100 MG Oral Capsule - Renew Instructions Name Dates Details Instructions not documented Encounters Appointment; Elizabeth Luz Encounter Diagnosis: Problem not [...]
--- OUTSIDE RECORDS SUMMARY | 2016-09-19 16:43 | XMS REPORT | Summary of Care ---
Author Author Gladys Jamil, Thaddeus Organization Unknown Address Unknown Phone Unavailable Care Team Providers Care Oil Field Equipment Mechanic Name Role Phone Thaddeus Graham M.D. Unavailable Unavailable Yonatan Graham M.D. 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 * Quantity: 30 Refills: 3 Gladys M.D., Thaddeus * Start 22-Jul-2015 Active Benzonatate 100 MG Oral Capsule TAKE 1 CAPSULE 3 TIMES DAILY NEEDED. * Quantity: 30 Refills: 2 [place] M.D., Thaddeus * Start 22-Jul-2015 Active GuaiFENesin ER 600 MG Oral Tablet Extended Release 12 Hour TAKE 2 TABLETS EVERY 12 HOURS. * Quantity: 40 Refills: 0 [place] M.D., Thaddeus * Start 28-Jul-2015 Active Montelukast Sodium 10 MG Oral Tablet TAKE 1 TABLET AT BEDTIME. * Quantity: 30 Refills: 5 [place] M.D., Thaddeus * Start Active Sprintec 28 0.25-35 MG-MCG Oral Tablet TAKE 1 TABLET DAILY DIRECTED. * Quantity: 1 Refills: 0 Gladys M.D., Thaddeus * Start 18-Oct-2015 Active 28 Tablet Disp Pack Ventolin HFA 108 (90 Base) MCG/ACT Inhalation Aerosol Solution INHALE 2 PUFFS EVERY 4 HOURS NEEDED FOR COUGH AND WHEEZE. * Quantity: 1 Refills: 0 [place] M.D., Thaddeus * Start 04-Nov-2015 Active 8 GM Inhaler Celecoxib 200 MG Oral Capsule take 1 capsule daily * Quantity: 30 Refills: 0 Gladys M.D., Thaddeus * Start 05-Dec-2015 Active ALPRAZolam XR 2 MG Oral Tablet Extended Release 24 Hour TAKE 1 TABLET DAILY. * Quantity: 30 Refills: 3 [place] M.D., Thaddeus * Start 03-Jan-2016 Active Lidocaine 5 % External Ointment Apply to painful area four times a day as needed * Quantity: 1 Refills: 2 Gladys M.D., Thaddeus * Start 04-Jan-2016 Active 35 GM Tube Clindamycin HCl - 300 MG Oral Capsule take 1 po QID * Quantity: 60 Refills: 0 Gladys M.D., Thaddeus * Start 05-Jan-2016 Active Cefdinir 300 MG Oral Capsule TAKE 1 CAPSULE EVERY 12 HOURS UNTIL GONE. * Quantity: 20 Refills: 0 [place] M.D., Thaddeus * Start 13-Jan-2016 Active OLANZapine 10 MG Oral Tablet Dispersible TAKE 1 TABLET Daily at HS * Quantity: 30 Refills: 3 [place] M.D., Thaddeus * Start 20-Jan-2016 Active Mupirocin 2 % External Ointment APPLY A SMALL AMOUNT 3 TIMES DAILY DIRECTED. * Quantity: 1 Refills: 2 Gladys M.D., Thaddeus * Start 20-Jan-2016 Active 22 GM Tube [place] Carbonate ER 450 MG Oral Tablet Extended Release TAKE 2 TABLETS AT BEDTIME. * Quantity: 60 Refills: 5 [place] M.D., Thaddeus * Start 02-Feb-2016 Active Acamprosate Calcium 333 MG Oral Tablet Delayed Release TAKE 1 TABLET 3 TIMES DAILY. * Quantity: 90 Refills: 0 [place] M.D., Yonatan * Start 09-Mar-2016 Active Saxenda 18 MG/3ML Subcutaneous Solution Pen-injector Inject daily before breakfast. Start at 0.6mg and increase by 0.6mg weekly until getting to 3mg daily. * Quantity: 1 Refills: 5 [place] M.D.Thaddeus * Start 27-Mar-2016 Active 3 ML Pen (5 Pens) [place] ULtrafine 31 guage 3/8 inch pen needles * Quantity: 100 Refills: 11 [place] M.D., Thaddeus * Start 27-Mar-2016 Active Allergies and Adverse Reactions Name Dates [...] unknown Vital Signs Date Test Result Details 27-Mar-2016 09:14 BP Systolic 100 mm[Hg] Status: Comments: Location: ; Position: BP Diastolic 62 mm[Hg] Status: Comments: Location: ; Position: Temperature 97.7 f Status: Comments: Method: Heart Rate 87 /min Status: Comments: Location: ; Weight 231 lb Status: Physical Findings 98 Status: Comments: O2 Saturation Body Mass Index Calculated 42.25 kg/m2 Status: Body Surface Area Calculated 2.03 m2 Status: 09-Mar-2016 13:02 BP Systolic 126 mm[Hg] Status: Comments: Location: RUE; Position: Sitting BP Diastolic 72 mm[Hg] Status: Comments: Location: RUE; Position: Sitting Temperature 97.9 f Status: Comments: Method: Tympanic Heart Rate 97 /min Status: Comments: Location: ; Weight 230 lb Status: Physical Findings 98 Status: Comments: O2 Saturation Body Mass Index Calculated 42.07 kg/m2 Status: Body Surface Area Calculated 2.03 m2 Status: Results Date Description Value Details Results not documented Plan of Care Name Dates Details Planned Observations Planned Goals not documented Planned Encounters Appointment; Provider: Thaddeus Graham M.D. On 27-Apr-2016 08:30 Interventions Provided Medication Changes* [place] - Start * PredniSONE 5 MG Oral Tablet - Stop * Saxenda 18 MG/3ML Subcutaneous Solution Pen-injector - Start Instructions Name Dates Details Instructions not documented Encounters Appointment; Yonatan Graham M.D. Encounter Diagnosis: Problem [...]
--- OUTSIDE RECORDS SUMMARY | 2016-09-19 16:44 | XMS REPORT | Summary of Care ---
Author Author Alisa Cloud Organization Unknown Address [address] [place] [address] Phone Unavailable Care Team Providers Care Tile Grinder Name Role Phone Thaddeus Graham M.D. Unavailable [...] Refills: 5 Thaddeus Graham M.D.* Started 22-Jul-2015 ActiveProventil HFA 108 (90 Base) MCG/ACT Inhalation Aerosol Solution INHALE 2 PUFFS EVERY 4 HOURS NEEDED * Quantity: 1 Refills: 6 Thaddeus Graham M.D.* Started 22-Jul-2015 Active6.7 GM Inhaler OxyCODONE HCl - 10 MG Oral Tablet [...] Refills: 0 Thaddeus Graham M.D.* Started 28-Jul-2015 ActiveIndomethacin 50 MG Oral Capsule TAKE 1 CAPSULE 3 TIMES DAILY NEEDED. * Quantity: 90 Refills: 1 Thaddeus Graham M.D.* Started 28-Jul-2015 Active Allergies [...] Viral RNA, Quantitative, RT- PCR w/Reflex to [id number] Comments: [facility] performed at: [facility], [facility], [address] [place] [address], [id number], Product Support Consultant: Jose Shay MDQuest Collection Date/Time: [id number] Results Received Date/Time: [id number] Reported Date/Time: [id number] FASTING:NO HCV RNA, QUANTITATIVE REAL TIME PCR [id number] IU/mL (Above high threshold) Comments: [[facility]]----- HCV RNA, QUANTITATIVE REAL TIME PCR 6.64 LogIU/mL (Above high threshold) Comments: REFERENCE RANGE: HCV RNA, PCR, QUANT: <15 IU/mL HCV RNA, PCR, QUANT: <1.18 LogIU/mLThis test was performed using the RUSLAN(R) AmpliPrep/RUSLAN(R)TaqMan(R) HCV Test, v2.0.The performance characteristics of this assay have beendetermined by [facility]. Performance characteristicsrefer to the analytical performance of the test.For additional information, please refer tohttp://education.Piqqual/faq /IHD77r1(This link is being provided for informational/educational purposesonly. )[[facility]]----- 29-Jul-2015 10:19 Hepatitis C Viral RNA, Genotype, LIPA [id number] Comments : [facility] performed at: [facility], [facility], [address] [place] [address], [phone], Product Support Consultant: Jose Shay MDQuest Collection Date/Time: [id number] Results Received Date/Time: [id number] Reported Date/Time: [id number] FASTING:NO HCV GENOTYPE, LIPA GENOTYPE 1a (Better) Comments: REFERENCE RANGE: NOT DETECTEDThe method used in this test is RT-PCR and reversehybridization (Line Probe) of the 5' UTR and coreregion of the HCV genome.This test was developed and its analytical performancecharacteristics have been determined by [facility].It has not been cleared or approved by the U.S. Food andDrug Administration. The FDA has determined that suchclearance or approval is not necessary. This assay hasbeen validated pursuant to the CLIA regulations and isused for clinical purposes.http://education.Piqqual /faq/ HCVGenotyping[[facility]]----- Plan of Care Planned Observations* Name [...]
--- OUTSIDE RECORDS SUMMARY | 2016-09-19 16:44 | XMS REPORT | Summary of Care ---
Author Author Thaddeus Graham M.D. Organization Unknown Address Unknown Phone Unavailable Care Team Providers Care Building Insulation Supervisor Name Role Phone Thaddeus Graham M.D. [...] Status: Active Hallucinations (780.1, R44.3) Status: Active Medications Name Dates Details PROzac 20 MG Oral Capsule TAKE 1 CAPSULE DAILY. * Start 20-Jul-2015 Active [place] Carbonate 300 MG Oral Capsule TAKE 1 CAPSULE 3 TIMES DAILY. * Refills: 0 * Start 20-Jul-2015 Active TraZODone HCl - 150 MG Oral Tablet TAKE 1 TABLET AT BEDTIME. * Quantity: 30 Refills: 3 [place] M.D., Thaddeus * Start 22-Jul-2015 Active Benzonatate 100 MG Oral Capsule TAKE 1 CAPSULE 3 TIMES DAILY NEEDED. * Quantity: 30 Refills: 2 Gladys M.D., Thaddeus * Start 22-Jul-2015 Active Indomethacin 50 MG Oral Capsule TAKE 1 CAPSULE 3 TIMES DAILY NEEDED. * Quantity: 90 Refills: 1 [place] M.D., Thaddeus * Start 28-Jul-2015 Active OxyCODONE HCl - 5 MG Oral Tablet TAKE 1 TABLET TID PRN * Quantity: 30 Refills: 0 [place] M.D., Thaddeus * Start 28-Jul-2015 Active GuaiFENesin ER 600 MG Oral Tablet Extended Release 12 Hour TAKE 2 TABLETS EVERY 12 HOURS. * Quantity: 40 Refills: 0 [place] M.D., Thaddeus * Start 28-Jul-2015 Active Cefdinir 300 MG Oral Capsule TAKE 1 CAPSULE TWICE DAILY UNTIL GONE. * Quantity: 14 Refills: 0 Gladys M.D., Thaddeus * Start 28-Jul-2015 Active LevoFLOXacin 750 MG Oral Tablet TAKE 1 TABLET DAILY. * Quantity: 20 Refills: 0 [place] M.D., Thaddeus * Start 04-Aug-2015 Active Montelukast Sodium 10 MG Oral Tablet TAKE 1 TABLET AT BEDTIME. * Quantity: 30 Refills: 5 [place] M.D., Thaddeus * Start Active Nitrofurantoin Monohyd Macro 100 MG Oral Capsule TAKE 1 CAPSULE TWICE DAILY UNTIL GONE. * Quantity: 20 Refills: 0 Gladys M.D., Thaddeus * Start Active Phenazopyridine HCl - 200 MG Oral Tablet 1 PO TID X 2 days * Quantity: 6 Refills: 0 [place] M.D., Thaddeus * Start Active Sprintec 28 0.25-35 MG-MCG Oral Tablet TAKE 1 TABLET DAILY DIRECTED. * Quantity: 1 Refills: 0 [place] M.D., Thaddeus * Start 18-Oct-2015 Active 28 Tablet Disp Pack PredniSONE 50 MG Oral Tablet take 1 daily for 5 days * Quantity: 5 Refills: 0 Gladys M.D., Thaddeus * Start 04-Nov-2015 Active Cefdinir 300 MG Oral Capsule TAKE 1 CAPSULE EVERY 12 HOURS UNTIL GONE. * Quantity: 20 Refills: 0 [place] M.D., Thaddeus * Start 04-Nov-2015 Active Ventolin HFA 108 (90 Base) MCG/ACT Inhalation Aerosol Solution INHALE 2 PUFFS EVERY 4 HOURS NEEDED FOR COUGH AND WHEEZE. * Quantity: 1 Refills: 0 Gladys M.D., Thaddeus * Start 04-Nov-2015 Active 8 GM Inhaler TiZANidine HCl - 4 MG Oral Tablet TAKE 1 TABLET 3 TIMES DAILY NEEDED. * Quantity: 30 Refills: 0 [place] M.D., Thaddeus * Start 02-Dec-2015 Active TraMADol HCl - 50 MG Oral Tablet TAKE 1 TO 2 TABLETS 4 TIMES DAILY NEEDED FOR PAIN. * Quantity: 60 Refills: 1 [place] M.D., Thaddeus * Start 02-Dec-2015 Active Salsalate 750 MG Oral Tablet TAKE 1 TABLET 3 times daily * Quantity: 90 Refills: 6 Gladys M.D., Thaddeus * Start 05-Dec-2015 Active Celecoxib 200 MG Oral Capsule take 1 capsule daily * Quantity: 30 Refills: 0 Gladys M.D., Thaddeus * Start 05-Dec-2015 Active ALPRAZolam XR 2 MG Oral Tablet Extended Release 24 Hour TAKE 1 TABLET DAILY. * Quantity: 30 Refills: 0 [place] M.D., Thaddeus * Start 03-Jan-2016 Active Lidocaine 5 % External Ointment Apply to painful area four times a day as needed * Quantity: 1 Refills: 2 Gladys M.D., Thaddeus * Start 04-Jan-2016 Active 35 GM Tube Clindamycin HCl - 300 MG Oral Capsule take 1 po QID * Quantity: 60 Refills: 0 [place] M.D., Thaddeus * Start 05-Jan-2016 Active Haloperidol 5 MG Oral Tablet TAKE 1 TABLET AT BEDTIME. * Quantity: 10 Refills: 0 Gladys M.D., Thaddeus * Start 10-Jan-2016 Active Allergies and Adverse Reactions Name Dates [...] WBC PLATELET Adequate Range: Adequate ANISO Slight -Dec-2015 14:17 C REACTIVE PROTEIN, CRP 2030 C [...] 0 /100 WBC PLATELET Adequate Range: Adequate Plan of Care Name Dates Details Planned Observations Planned Goals not documented Planned Encounters Appointment; Provider: Thaddeus Graham M.D. On 19-Jan-2016 14:00 Interventions Provided Medication Changes* Haloperidol 5 MG Oral Tablet - Start * Lidocaine 5 % External Ointment - Renew * OxyCODONE HCl - 5 MG Oral Tablet - Renew * TraZODone HCl - 150 MG Oral Tablet - Renew Instructions Name Dates Details Instructions [...]
--- OUTSIDE RECORDS SUMMARY | 2016-09-19 16:44 | XMS REPORT | Continuity of Care Document ---
Author Author [facility] Address Unknown Phone Unavailable Care Team Providers Care Nurse Rn Bsn Name Role Phone KAYY, GLORIA Villegas MD PCP Insurance Providers Payer Name Policy Number Subscriber Name Relationship Leah [employer] [id number] Giovana Bowens 19 Mother Advance Directives Directive Response Recorded Date/Time Advanced Directives No 07/27/15 1:12pm Chief Complaint and Reason for Visit Chief Complaint Injury Reason for Visit Rib injury Cough Problems Active Problems Medical Problem Onset Date [...] genitalia 03/30/2012 Acute Rib injury Unknown Acute Sinusitis Unknown Acute Stress reaction Unknown Acute Threatened 10/11/2011 Acute Vaginal laceration ~12/29/2014 Acute Medications Current Home Medications Medication Dose Units Route Directions Days/Qty Instructions Start Date Albuterol Sulfate 6.7 Gm Unknown Dose As Directed 6 07/27/15 Hydrocodone/Acetaminophen 6 Tabs/Btl 1-2 Tab Every 4HRS 60 07/27/15 [place] Carbonate 300 Mg 1 Tab Three Times A Day 90 07/27/15 Fluoxetine Hcl (Prozac) 20 Mg 1 Tab Daily 30 07/27/15 Trazodone Hcl 100 Mg 1 Tab Bedtime 30 07/27/15 Promethazine/Codeine (Promethazine/Codeine 6.25MG-10MG/5ML) 5 Ml 5 Ml ORAL Every 6 Hours as needed for Cough 4 07/27/15 Past Home Medications Medication Directions Ordered Status [...] 200 Mg Oral As Needed 03/07/15 Discontinued [place] Carbonate 150 Mg Cap, Unknown Dose Oral [...] Respiratory (Inhalation) Every 4 Hours 03/31/15 Discontinued Social History Query Response Start Date Stop Date Smoking Status Current every day smoker Hospital Discharge Instructions No hospital discharge instructions. Plan of Care Discharge Date 07/27/15 3:04pm Disposition 01 HOME OR SELF-CARE Condition at Discharge Stable Instructions/Education Provided Promethazine/Codeine (By mouth) Rib Fracture (ED) Prescriptions See Medication Section Referrals GLORIA SULTANA MD - Additional Instructions/Education No definite rib fracture was seen on xray but you may have injured the rib cartilage from hard coughing. You should rest, take ibuprofen 800 mg every 6-8 hours for pain, and if needed, the cough syrup with codeine, which causes drowsiness, so do not drive. See your doctor in 2 days if not improving. Some of your test results may not [...] worrisome symptoms. * Emergency Department phone number: [phone], x [phone]* MEDICAL RECORD If you need copies of your X-rays, call [phone] x [phone]. If you need copies of [...] the billing parties for services. [employer] Emergency Room Services [facility] Physician Services [facility] X-rays [facility] Patients will receive bills for services from the appropriate provider. If you have any questions about your [facility] bill, our staff will be happy to assist you. Please call [phone], and ask for the billing department. THANK YOU for choosing [facility] as your emergency care provider! Care [...] Status Last Updated Iodine Allergy Unknown Active 07/27/15 Clindamycin Allergy Mild Active 07/27/15 Sulfamethoxazole Allergy Unknown Active 07/27/15 Trimethoprim Allergy Unknown Active 07/27/15 ERYTHROMYCIN Allergy Unknown Active 12/16/13 PENICILLIN Allergy Unknown Active 12/16/13 Immunizations No immunization records. Vital Signs Acute Vital Signs Vital Response Date/Time Temperature (Fahrenheit) 96.7 07/27/2015 1:12pm Pulse 84 bpm 07/27/2015 3:07pm Respirations 18 07/27/2015 3:07pm Height 5 ft 1 in Weight 242 lb Body Mass Index 45.0 kg/m^2 Results No known relevant diagnostic tests, laboratory data and/or discharge summary. Procedures No known history of procedures. Encounters Encounter Location Arrival/Admit Date Discharge/Depart Date Attending Provider Departed Emergency Room [facility] 07/27/15 1:03pm 07/27/15 3:04pm RIZWAN GARAY DO Recent Diagnosis
--- OUTSIDE RECORDS SUMMARY | 2016-09-19 16:45 | XMS REPORT | Summary of Care ---
Author Author Thaddeus Graham M.D. Organization Unknown Address Unknown Phone Unavailable Care Team Providers Care Process Controls Technician Name Role Phone Thaddeus Graham M.D. Unavailable Unavailable Thaddeus Graahm Unavailable Unavailable Unavailable Unavailable Functional Status Name [...] 1 CAPSULE DAILY. * Start 20-Jul-2015 Active [place]va Carbonate 300 MG Oral Capsule TAKE 1 CAPSULE 3 TIMES DAILY. * Refills: 0 * Start 20-Jul-2015 Active TraZODone HCl - 150 MG Oral Tablet TAKE 1 TABLET AT BEDTIME. * Quantity: 30 Refills: 3 Gladys M.D., Thaddeus * Start 22-Jul-2015 Active Benzonatate 100 MG Oral Capsule TAKE 1 CAPSULE 3 TIMES DAILY NEEDED. * Quantity: 30 Refills: 2 [place] M.D., Thaddeus * Start 22-Jul-2015 Active Indomethacin 50 MG Oral Capsule TAKE 1 CAPSULE 3 TIMES DAILY NEEDED. * Quantity: 90 Refills: 1 [place] M.D., Thaddeus * Start 28-Jul-2015 Active OxyCODONE HCl - 5 MG Oral Tablet TAKE 1 TABLET TID PRN * Quantity: 30 Refills: 0 Gladys M.D., Thaddeus * Start 28-Jul-2015 Active GuaiFENesin ER 600 MG Oral Tablet Extended Release 12 Hour TAKE 2 TABLETS EVERY 12 HOURS. * Quantity: 40 Refills: 0 Gladys M.D., Thaddeus * Start 28-Jul-2015 Active Cefdinir 300 MG Oral Capsule TAKE 1 CAPSULE TWICE DAILY UNTIL GONE. * Quantity: 14 Refills: 0 [place] M.D., Thaddeus * Start 28-Jul-2015 Active LevoFLOXacin 750 MG Oral Tablet TAKE 1 TABLET DAILY. * Quantity: 20 Refills: 0 [place] M.D., Thaddeus * Start 04-Aug-2015 Active Montelukast Sodium 10 MG Oral Tablet TAKE 1 TABLET AT BEDTIME. * Quantity: 30 Refills: 5 [place] M.D., Thaddeus * Start Active Nitrofurantoin Monohyd Macro 100 MG Oral Capsule TAKE 1 CAPSULE TWICE DAILY UNTIL GONE. * Quantity: 20 Refills: 0 Gladys M.D., Thaddeus * Start Active Phenazopyridine HCl - 200 MG Oral Tablet 1 PO TID X 2 days * Quantity: 6 Refills: 0 [place] M.D., Thaddeus * Start Active Sprintec 28 0.25-35 MG-MCG Oral Tablet TAKE 1 TABLET DAILY DIRECTED. * Quantity: 1 Refills: 0 [place] M.D., Thaddeus * Start 18-Oct-2015 Active 28 Tablet Disp Pack PredniSONE 50 MG Oral Tablet take 1 daily for 5 days * Quantity: 5 Refills: 0 Gladys M.D., Thaddeus * Start 04-Nov-2015 Active Cefdinir 300 MG Oral Capsule TAKE 1 CAPSULE EVERY 12 HOURS UNTIL GONE. * Quantity: 20 Refills: 0 [place] M.D., Thaddeus * Start 04-Nov-2015 Active Ventolin HFA 108 (90 Base) MCG/ACT Inhalation Aerosol Solution INHALE 2 PUFFS EVERY 4 HOURS NEEDED FOR COUGH AND WHEEZE. * Quantity: 1 Refills: 0 Gladys M.D., Thaddeus * Start 04-Nov-2015 Active 8 GM Inhaler TiZANidine HCl - 4 MG Oral Tablet TAKE 1 TABLET 3 TIMES DAILY NEEDED. * Quantity: 30 Refills: 0 [place] M.D., Thaddeus * Start 02-Dec-2015 Active TraMADol HCl - 50 MG Oral Tablet TAKE 1 TO 2 TABLETS 4 TIMES DAILY NEEDED FOR PAIN. * Quantity: 60 Refills: 1 [place] M.D., Thaddeus * Start 02-Dec-2015 Active Salsalate 750 MG Oral Tablet TAKE 1 TABLET 3 times daily * Quantity: 90 Refills: 6 [place] M.D., Thaddeus * Start 05-Dec-2015 Active Celecoxib 200 MG Oral Capsule take 1 capsule daily * Quantity: 30 Refills: 0 [place] M.D., Thaddeus * Start 05-Dec-2015 Active ALPRAZolam XR 2 MG Oral Tablet Extended Release 24 Hour TAKE 1 TABLET DAILY. * Quantity: 30 Refills: 0 [place] M.D., Thaddeus * Start 03-Jan-2016 Active Lidocaine 5 % External Ointment Apply to painful area four times a day as needed * Quantity: 1 Refills: 2 Gladys M.D., Thaddeus * Start 04-Jan-2016 Active 35 GM Tube Clindamycin HCl - 300 MG Oral Capsule take 1 po QID * Quantity: 60 Refills: 0 [place] M.D., Thaddeus * Start 05-Jan-2016 Active Haloperidol 5 MG Oral Tablet TAKE 1 TABLET AT BEDTIME. * Quantity: 10 Refills: 0 Gladys M.D., Thaddeus * Start 10-Jan-2016 Active Cefdinir 300 MG Oral Capsule TAKE 1 CAPSULE EVERY 12 HOURS UNTIL GONE. * Quantity: 20 Refills: 0 [place] M.D., Thaddeus * Start 13-Jan-2016 Active Allergies [...] Dates Details History of Tonsillectomy CBC w/ Auto Diff 7150 Ordered: 10-Jan-2016 C REACTIVE PROTEIN, CRP 2030 Ordered: 10-Jan-2016 Immunization Name Dates Details Fluzone Quadrivalent 0.5 [...] of Care Name Dates Details Planned Observations CBC w/ Auto Diff 7150 On 17-Jan-2016 Intent C REACTIVE PROTEIN, CRP 2030 On 17-Jan-2016 Intent Planned Goals not documented Planned Encounters Appointment; Provider: Thaddeus Graham M.D. On 19-Jan-2016 14:00 Interventions Provided Medication Changes* Cefdinir 300 MG Oral Capsule - Start * Haloperidol 5 MG Oral Tablet - Start [...]
--- OUTSIDE RECORDS SUMMARY | 2016-09-19 16:45 | XMS REPORT | Summary of Care ---
Author Author Gladys Jamil, Thaddeus Organization Unknown Address Unknown Phone Unavailable Care Team Providers Care Audio Visual Project Manager Name Role Phone Thaddeus Graham M.D. Unavailable Unavailable Yonatan Graham M.D. Unavailable Unavailable Thaddeus Graham Unavailable Unavailable Unavailable Unavailable Functional Status Name Dates Details Functional status health issues are not documented Status: Name Dates Details Cognitive status health issues are not documented Status: Problems Name Dates Details Chronic GERD (530.81, K21.9) Status: Active Chronic diarrhea (787.91, K52.9) Status: Active Headache, chronic daily (784.0, R51) Status: Active Costochondritis (733.6, M94.0) Status: Active Rib pain on right side (786.50, R07.81) Status: Active Seasonal allergies (477.9, J30.2) Status: Active UTI (urinary tract infection) (599.0, N39.0) Status: Active control counseling (V25.09, Z30.09) Status: Active Contraception (V25.9, Z30.9) Status: Active Urinary incontinence (788.30, R32) Status: Active Pleurisy (511.0, R09.1) Status: Active Bronchitis (490, J40) Status: Active Pulled muscle (848.9, T14.8) Status: Active Skin ulcer (707.9, L98.499) Status: [...] Low back pain (724.2, M54.5) Status: Active Cellulitis (682.9, L03.90) Status: Active Cough due to bronchospasm (519.11, J98.01) Status: Active Obesity (278.00, E66.9) Status: Active Migraine headache (346.90, G43.909) Status: Active MRSA cellulitis (682.9, L03.90) Status: Active 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 * Quantity: 20 Refills: 0 Gladys M.D.Thaddeus * Start 13-Jan-2016 Active OLANZapine 10 MG Oral Tablet Disintegrating TAKE 1 TABLET Daily at HS * Quantity: 30 Refills: 3 [place] M.D.Thaddeus * Start 20-Jan-2016 Active Mupirocin 2 % External Ointment APPLY A SMALL AMOUNT 3 TIMES DAILY DIRECTED. * Quantity: 1 Refills: 2 Gladys M.D.Thaddeus * Start 20-Jan-2016 Active 22 GM Tube [place] Carbonate ER 450 MG Oral Tablet Extended Release TAKE 2 TABLETS AT BEDTIME. * Quantity: 60 Refills: 5 [place] M.D.Thaddeus * Start 02-Feb-2016 Active Phentermine HCl - 30 MG Oral Capsule TAKE 1 CAPSULE EVERY MORNING BEFORE BREAKFAST. * Quantity: 30 Refills: 0 Gladys M.D., Thaddeus * Start Active Ventolin HFA 108 (90 Base) MCG/ACT Inhalation Aerosol Solution INHALE 2 PUFFS EVERY 4 HOURS NEEDED FOR COUGH AND WHEEZE. * Quantity: 1 Refills: 0 Gladys M.D.Thaddeus * Start 04-Nov-2015 Active 8 GM Inhaler Sprintec 28 0.25-35 MG-MCG Oral Tablet TAKE 1 TABLET DAILY DIRECTED. * Quantity: 1 Refills: 0 Gladys M.D., Thaddeus * Start 18-Oct-2015 Active 28 Tablet Disp Pack GuaiFENesin ER 600 MG TB12 TAKE 2 TABLETS EVERY 12 HOURS. * Quantity: 40 Refills: 0 [place] M.D., Thaddeus * Start 28-Jul-2015 Active Mupirocin 2 % External Ointment APPLY A SMALL AMOUNT 3 TIMES DAILY DIRECTED. * Quantity: 1 Refills: 2 [place] M.D.Thaddeus * Start 01-May-2016 Active 22 GM Tube Acamprosate Calcium 333 MG Oral Tablet Delayed Release TAKE 1 TABLET 3 TIMES DAILY. * Quantity: 90 Refills: 0 [place] M.DYonatan Heredia * Start 09-Mar-2016 Active SUMAtriptan Succinate 100 MG Oral Tablet TAKE 1 TABLET AT ONSET OF MIGRAINE HEADACHE. MAY REPEAT IN 2 HOURS IF NEEDED. * Quantity: 30 Refills: 4 Gladys M.D.Thaddeus * Start Active Topiramate 25 MG Oral Tablet TAKE 1 TABLET TWICE DAILY. * Quantity: 60 Refills: 11 [place] M.D.Thaddeus * Start Active Lidocaine 5 % External Ointment Apply to painful area four times a day as needed * Quantity: 1 Refills: 2 [place] M.D.Thaddeus * Start 27-Apr-2016 Active 35 GM Tube HydrOXYzine Pamoate 100 MG Oral Capsule 1 PO BID PRN anxiety attack * Quantity: 20 Refills: 2 [place] M.D.Thaddeus * Start 27-Apr-2016 Active Minocycline HCl - 100 MG Oral Capsule TAKE ONE CAPSULE BY MOUTH TWICE A DAY * Quantity: 60 Refills: 5 Gladys M.D.Thaddeus * Start 27-Jun-2016 Active [place] ULtrafine 31 guage 3/8 inch pen needles * Quantity: 100 Refills: 11 [place] M.D.Thaddeus * Start 27-Mar-2016 Active Lidocaine 5 % External Ointment Apply to painful area four times a day as needed * Quantity: 1 Refills: 2 [place] M.D.Thaddeus * Start 04-Jan-2016 Active 35 GM Tube ALPRAZolam XR 2 MG Oral Tablet Extended Release 24 Hour Take one tablet by mouth daily * Quantity: 30 Refills: 2 Gladys M.D., Thaddeus * Start 06-May-2016 Active Celecoxib 200 MG Oral Capsule take 1 capsule daily * Quantity: 30 Refills: 0 [place] M.D., Thaddeus * Start 05-Dec-2015 Active Montelukast Sodium 10 MG Oral Tablet TAKE 1 TABLET AT BEDTIME. * Quantity: 30 Refills: 5 Gladys M.D., Thaddeus * Start Active FLUoxetine HCl - 40 MG Oral Capsule take 1 capsule daily * Quantity: 30 Refills: 6 Gladys M.D., Thaddeus * Start 20-Jul-2015 Active Benzonatate 100 MG Oral Capsule TAKE 1 CAPSULE 3 TIMES DAILY NEEDED. * Quantity: 30 Refills: 2 [place] M.D., Thaddeus * Start 22-Jul-2015 Active Allergies and Adverse Reactions Name Dates [...] Active Name Dates Details Family history of High cholesterol (272.0, E78.00) Status: Active Family history of cardiac disorder (V17.49, Z82.49) Status: Active Family history of Diabetes type 2, controlled (250.00, E11.9) Status: Active Social History Name Dates Details - Status: Name Dates Details Smoker. current status unknown Vital Signs Date Test Result Details 15:44 BP Systolic 112 mm[Hg] Status: Comments: Location: ; Position: BP Diastolic 76 mm[Hg] Status: Comments: Location: ; Position: Temperature 97.9 f Status: Comments: Method: Heart Rate 97 /min Status: Comments: Location: ; Weight 232 lb Status: Physical Findings 97 Status: Comments: O2 Saturation Body Mass Index Calculated 42.43 kg/m2 Status: Body Surface Area Calculated 2.04 m2 Status: 14:16 BP Systolic 114 mm[Hg] Status: Comments: Location: ; Position: BP Diastolic 78 mm[Hg] Status: Comments: Location: ; Position: Temperature 97.5 f Status: Comments: Method: Heart Rate 95 /min Status: Comments: Location: ; Weight 233 lb Status: Physical Findings 95 Status: Comments: O2 Saturation Body Mass Index Calculated 42.62 kg/m2 Status: Body Surface Area Calculated 2.04 m2 Status: Results Date Description Value Details Results not documented Plan of Care Name Dates Details Planned Observations Planned Goals not documented Planned Encounters Appointment; Provider: Thaddeus Graham M.D. On 14:00 Interventions Provided Medication Changes* Phentermine HCl - 30 MG Oral Capsule - Renew with Changes Instructions Name Dates Details Instructions not documented Encounters Appointment; Thaddeus Graham M.D. Encounter Diagnosis: Problem not documented On 15:15 Appointment; Thaddeus Graham M.D. Encounter Diagnosis: Problem not documented On 14:00 Appointment; Thaddeus Graham M.D. Encounter Diagnosis: Problem not documented On 10-Aug-2016 13:30 Appointment; Thaddeus Graham M.D. Encounter Diagnosis: Problem [...]
--- OUTSIDE RECORDS SUMMARY | 2016-09-19 16:46 | XMS REPORT | Summary of Care ---
Author Author Thaddeus Graham M.D. Organization Unknown Address Unknown Phone Unavailable Care Team Providers Care Economic Historian Name Role Phone Thaddeus Graham M.D. Unavailable [...] 1 CAPSULE DAILY. * Start 20-Jul-2015 Active [place] Carbonate 300 MG Oral Capsule TAKE 1 CAPSULE 3 TIMES DAILY. * Refills: 0 * Start 20-Jul-2015 Active TraZODone HCl - 150 MG Oral Tablet TAKE 1 TABLET AT BEDTIME. * Quantity: 30 Refills: 3 [place] M.D., Thaddeus * Start 22-Jul-2015 Active Benzonatate 100 MG Oral Capsule TAKE 1 CAPSULE 3 TIMES DAILY NEEDED. * Quantity: 30 Refills: 2 [place] M.D., Thaddeus * Start 22-Jul-2015 Active Indomethacin 50 MG Oral Capsule TAKE 1 CAPSULE 3 TIMES DAILY NEEDED. * Quantity: 90 Refills: 1 Gladys M.D., Thaddeus * Start 28-Jul-2015 Active OxyCODONE HCl - 5 MG Oral Tablet TAKE 1 TABLET TID PRN * Quantity: 30 Refills: 0 [place] M.D., Thaddeus * Start 28-Jul-2015 Active GuaiFENesin ER 600 MG Oral Tablet Extended Release 12 Hour TAKE 2 TABLETS EVERY 12 HOURS. * Quantity: 40 Refills: 0 [place] M.D., Thaddeus * Start 28-Jul-2015 Active Cefdinir 300 MG Oral Capsule TAKE 1 CAPSULE TWICE DAILY UNTIL GONE. * Quantity: 14 Refills: 0 [place] M.D., Thaddeus * Start 28-Jul-2015 Active LevoFLOXacin 750 MG Oral Tablet TAKE 1 TABLET DAILY. * Quantity: 20 Refills: 0 [place] M.D., Thaddeus * Start 04-Aug-2015 Active Montelukast [...] 2 days * Quantity: 6 Refills: 0 [place] M.D., Thaddeus * Start Active Sprintec 28 0.25-35 MG-MCG Oral Tablet TAKE 1 TABLET DAILY DIRECTED. * Quantity: 1 Refills: 0 [place] M.D., Thaddeus * Start 18-Oct-2015 Active 28 Tablet Disp Pack PredniSONE 50 MG Oral Tablet take 1 daily for 5 days * Quantity: 5 Refills: 0 Gladys M.D., Thaddeus * Start 04-Nov-2015 Active Cefdinir 300 MG Oral Capsule TAKE 1 CAPSULE EVERY 12 HOURS UNTIL GONE. * Quantity: 20 Refills: 0 [place] M.D., Thaddeus * Start 04-Nov-2015 Active Ventolin HFA 108 (90 Base) MCG/ACT Inhalation Aerosol Solution INHALE 2 PUFFS EVERY 4 HOURS NEEDED FOR COUGH AND WHEEZE. * Quantity: 1 Refills: 0 [place] M.D., Thaddeus * Start 04-Nov-2015 Active 8 GM Inhaler TiZANidine HCl - 4 MG Oral Tablet TAKE 1 TABLET 3 TIMES DAILY NEEDED. * Quantity: 30 Refills: 0 [place] M.D., Thaddeus * Start 02-Dec-2015 Active TraMADol HCl - 50 MG Oral Tablet TAKE 1 TO 2 TABLETS 4 TIMES DAILY NEEDED FOR PAIN. * Quantity: 60 Refills: 1 [place] M.D., Thaddeus * Start 02-Dec-2015 Active Salsalate 750 MG Oral Tablet TAKE 1 TABLET 3 times daily * Quantity: 90 Refills: 6 [place] M.D., Thaddeus * Start 05-Dec-2015 Active Celecoxib 200 MG Oral Capsule take 1 capsule daily * Quantity: 30 Refills: 0 [place] M.D., Thaddeus * Start 05-Dec-2015 Active ALPRAZolam XR 2 MG Oral Tablet Extended Release 24 Hour TAKE 1 TABLET DAILY. * Quantity: 30 Refills: 0 Gladys M.D., Thaddeus * Start 03-Jan-2016 Active Lidocaine 5 % External Ointment Apply to painful area four times a day as needed * Quantity: 1 Refills: 2 [place] M.D., Thaddeus * Start 04-Jan-2016 Active 35 GM Tube Clindamycin HCl - 300 MG Oral Capsule take 1 po QID * Quantity: 60 Refills: 0 [place] M.D., Thaddeus * Start 05-Jan-2016 Active Haloperidol 5 MG Oral Tablet TAKE 1 TABLET AT BEDTIME. * Quantity: 10 Refills: 0 Gladys M.D., Thaddeus * Start 10-Jan-2016 Active Cefdinir 300 MG Oral Capsule TAKE 1 CAPSULE EVERY 12 HOURS UNTIL GONE. * Quantity: 20 Refills: 0 [place] M.D., Thaddeus * Start 13-Jan-2016 Active Allergies [...] 0 /100 WBC PLATELET Adequate Range: Adequate 17-Jan-2016 08:59 LITHIUM 1162 LITHIUM 0.33 Plan of Care Name Dates Details Planned [...] - 150 MG Oral Tablet - Renew Labs/Procedures/Imaging* C REACTIVE PROTEIN, CRP 2030; To be Done: 10 Jan 2016 * CBC w/ Auto Diff 7150; To be Done: 10 Jan 2016 Instructions Name Dates Details Instructions [...]
--- OUTSIDE RECORDS SUMMARY | 2016-09-19 16:46 | XMS REPORT | Summary of Care ---
Author Author Thaddeus Graham M.D. Organization Unknown Address [address], [place] [id number] Phone Unavailable Care Team Providers Care Slasher Tender Helper Name Role Phone Thaddeus Graham M.D. Unavailable [...] Viral RNA, Quantitative, RT- PCR w/Reflex to [id number] Comments: [facility] performed at: [facility], [address] [place] [address], [id number], Log Carrier Operator: Jose Shay MDQuest Collection Date/Time: [id number] Results Received Date/Time: [id number] Reported Date/Time: [id number] FASTING:NO HCV RNA, QUANTITATIVE REAL TIME PCR [id number] IU/mL (Above high threshold) Comments: [[facility]]----- HCV RNA, QUANTITATIVE REAL TIME PCR 6.64 LogIU/mL (Above high threshold) Comments: REFERENCE RANGE: HCV RNA, PCR, QUANT: <15 IU/mL HCV RNA, PCR, QUANT: <1.18 LogIU/mLThis test was performed using the RUSLAN(R) AmpliPrep/RUSLAN(R)TaqMan(R) HCV Test, v2.0.The performance characteristics of this assay have beendetermined by [facility]. Performance characteristicsrefer to the analytical performance of the test.For additional information, please refer tohttp://education.Solidarium/faq /[email or web address](This link is being provided for informational/educational purposesonly. )[[facility]]----- 29-Jul-2015 10:19 Hepatitis C Viral RNA, Genotype, LIPA [id number] Comments : [facility] performed at: [facility], [facility] [employer], [address] [place] [address], [id number], Log Carrier Operator: Jose Shay MDQuest Collection Date/Time: [id number] Results Received Date/Time: [id number] Reported Date/Time: [id number] FASTING:NO HCV GENOTYPE, LIPA GENOTYPE 1a (Better) Comments: REFERENCE RANGE: NOT DETECTEDThe method used in this test is RT-PCR and reversehybridization (Line Probe) of the 5' UTR and coreregion of the HCV genome.This test was developed and its analytical performancecharacteristics have been determined by [employer].It has not been cleared or approved by the U.S. Food andDrug Administration. The FDA has determined that suchclearance or approval is not necessary. This assay hasbeen validated pursuant to the CLIA regulations and isused for clinical purposes.http://Geddit.Solidarium /faq/ HCVGenotyping[[facility]]----- Plan of Care Planned Observations* Name [...]
--- OUTSIDE RECORDS SUMMARY | 2016-09-19 16:46 | XMS REPORT | Continuity of Care Document ---
Author Author [facility] Address Unknown Phone Unavailable Care Team Providers Care Real Estate Accountant Name Role Phone KAYY, GLORIA Villegas MD PCP Insurance Providers Payer Name Policy Number Subscriber Name Relationship [facility] [id number] Mimi Bowens 18 Self / Same As Patient Advance Directives Directive Response Recorded Date/Time Advanced Directives No 04/29/16 9:13am Chief Complaint and Reason for Visit Chief Complaint Skin Condition Reason for Visit Infection of skin Quantitative Analyst Marketing's nodules Impetigo Bronchitis Problems Active Problems Medical Problem Onset [...] Acute Pain in female genitalia 03/30/2012 Acute Quantitative Analyst Marketing's nodules Unknown Acute Rib injury Unknown Acute Rib pain on right side ~08/02/2015 Resolved Sinusitis Unknown Resolved Stress reaction Unknown Resolved Threatened 10/11/2011 Acute Urinary tract infection ~10/11/2015 Acute Vaginal laceration ~12/29/2014 Resolved Medications Current Home Medications Medication Dose Units Route Directions Days/Qty Instructions Start Date Fluoxetine Hcl 40 Mg 40 Mg ORAL Daily 12/26/15 [place] Carbonate 450 Mg 2 Tab ORAL Bedtime 12/26/15 Trazodone Hcl 150 Mg 150 Mg ORAL Bedtime 01/14/16 Acetaminophen (Tylenol) 325 Mg 650 Mg ORAL Every 6 Hours as needed for Pain 0 01/15/16 Alprazolam 2 Mg 2 Mg ORAL Bedtime 30 01/15/16 Olanzapine 10 Mg 10 Mg ORAL Bedtime 03/13/16 Acamprosate Calcium 333 Mg 333 Mg ORAL Three Times A Day 03/13/16 Liraglutide 3 Mg/0.5 Ml 3 Mg Sub-Q Daily 15 04/29/16 Minocycline Hcl 100 Mg 100 Twice A Day 60 04/29/16 Mupirocin (Bactroban Ointment) 22 Gm 0.25 Gm TOPICAL Three Times A Day 04/29/16 Triamcinolone Acet (Triamcinolone 0.1% Cream) 15 Gm 0.25 Gm TOPICAL Twice A Day as needed for Itching 15 04/29/16 Past Home Medications Medication Directions Ordered Status [...] Mg Tablet, 325 Mg Oral As Needed 12/21/15 Discontinued Ibuprofen (Motrin) 200 Mg Tablet, 200 Mg Oral As Needed 03/07/15 Discontinued [place] Carbonate 150 Mg Cap, Unknown Dose Oral [...] Tablet, 1-2 Tab Every 4HRS 07/27/15 Discontinued [place] Carbonate 300 Mg Capsule, 1 Tab Three [...] Capsule, 50 Mg Oral Daily 10/12/15 Discontinued [place] Carbonate 450 Mg Tablet.er, 450 Mg Oral [...] discharge instructions. Plan of Care Discharge Date 04/29/16 9:50am Disposition 01 HOME OR SELF-CARE Condition at Discharge Stable Instructions/Education Provided Mupirocin Acute Bronchitis, Adult (DC) Triamcinolone (Topical) Impetigo (DC) Prescriptions See Medication Section Referrals GLORIA SULTANA MD - Additional Instructions/Education Continue to take the antibiotics and anti- itch medication your doctor prescribed. You also are receiving prescription for a topical steroid to help with itching and a topical antibiotic for help fight the infection. You may take Motrin 800 mg 3 time a day for pain. Some of your test results may not [...] worrisome symptoms. * Emergency Department phone number: [phone], x [phone]* MEDICAL RECORD If you need copies of your X-rays, call [phone] x [phone]. If you need copies of [...] services. SERVICE BILLING REPUBLICAN Emergency Room Services [facility] Physician Services [facility] X-rays [facility] Patients will receive bills for services from the appropriate provider. If you have any questions about your [facility] bill, our staff will be happy to assist you. Please call [phone], and ask for the billing department. THANK YOU for choosing [facility] as your emergency care provider! Care Plan and Goals ~~Discharge Care Plan~~ Problem: Rash/hives Goal: Decreased redness, itching, and blotches. Instructions: Take medication(s) as directed. Keep a log of medication times and dosages to avoid over or under dosage. Avoid triggers that cause your rash or hives. Functional Status No functional status results. Allergies, Adverse Reactions, Alerts Allergen Type Severity Reaction Status Last Updated Penicillin Allergy Unknown Active 01/13/16 Iodine Allergy Unknown Active 01/13/16 Erythromycin base Allergy Unknown Active 01/13/16 Sulfamethoxazole Allergy Unknown Active 01/13/16 Trimethoprim Allergy Unknown Active 01/13/16 Tramadol Allergy Unknown Active 01/13/16 Immunizations No immunization records. Vital Signs Acute Vital Signs Vital Response Date/Time Temperature (Fahrenheit) 98.5 04/29/2016 9:47am Pulse 103 bpm 04/29/2016 9:47am Respirations 18 04/29/2016 9:47am Height 5 ft 2 in Weight 227 lb Body Mass Index 41.0 kg/m^2 Results No known relevant diagnostic tests, laboratory data and/or discharge summary. Procedures No known history of procedures. Encounters Encounter Location Arrival/Admit Date Discharge/Depart Date Attending Provider Registered Emergency Room [facility] 04/29/16 8:59am RIZWAN GARAY DO Recent Diagnosis
--- OUTSIDE RECORDS SUMMARY | 2016-09-19 16:46 | XMS REPORT ---
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 Problem Nondependent tobacco use disorder 305.1 Active Problem Abdominal pain, right upper quadrant 789.01 Active Problem Urinary tract infection, site not specified 599.0 Active Problem flank pain 789.00 Active Problem Unspecified viral hepatitis C without hepatic coma 070.70 Active Problem Acute serous otitis media 381.01 Active Problem Lumbago 724.2 Active Problem Pain in joint, multiple sites 719.49 Active Problem Acute suppurative otitis media without spontaneous rupture of eardrum 382.00 Active Problem Other acute otitis externa 380.22 Active Problem Health examination of defined subpopulation V70.5 Active Problem Acute gingivitis, plaque induced 523.00 Active Problem elevated liver enzymes 794.8 Active Medications No Known Medications Results No Known Results Summary Purpose [employer] Submission
--- OUTSIDE RECORDS SUMMARY | 2016-09-19 16:46 | XMS REPORT | Continuity of Care Document ---
Author Author [facility] Address Unknown Phone Unavailable Care Team Providers Care Consumer Loan Underwriter Name Role Phone KAYY, GLORIA Villegas MD PCP Insurance Providers Payer Name Policy Number Subscriber Name Relationship [facility] [id number] Mimi Bowens 18 Self / Same As Patient Advance Directives Directive Response Recorded Date/Time Advanced Directives No 07/18/16 5:46pm Chief Complaint and Reason for Visit Chief Complaint Psychological Complaint Reason for Visit Anxiety disorder [id number] Problems Active Problems Medical Problem Onset Date [...] Acute Pain in female genitalia 03/30/2012 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 Acute Rib injury Unknown Acute Rib pain on right side ~08/02/2015 Resolved Sinusitis Unknown Resolved Stress reaction Unknown Resolved Threatened 10/11/2011 Acute Urinary tract infection ~10/11/2015 Acute Vaginal laceration ~12/29/2014 Resolved Medications Current Home Medications Medication Dose Units Route Directions Days/Qty Instructions Start Date Fluoxetine Hcl 40 Mg 40 Mg ORAL Daily 12/26/15 [place] Carbonate 450 Mg 2 Tab ORAL Bedtime [...] 0.25 Gm TOPICAL Three Times A Day 22 04/29/16 Triamcinolone Acet (Triamcinolone 0.1% Cream) 15 Gm 0.25 Gm TOPICAL Twice A Day as needed for Itching 15 04/29/16 Lorazepam 1 Mg 1 Mg ORAL Every 6 Hours as needed for Anxiety 6 Past Home Medications Medication Directions Ordered Status [...] 200 Mg Oral As Needed 03/07/15 Discontinued [place] Carbonate 150 Mg Cap, Unknown Dose Oral [...] Tablet, 1-2 Tab Every 4HRS 07/27/15 Discontinued [place] Carbonate 300 Mg Capsule, 1 Tab Three [...] Capsule, 50 Mg Oral Daily 10/12/15 Discontinued [place] Carbonate 450 Mg Tablet.er, 450 Mg Oral Bedtime 12/26/15 Discontinued Norgestimate-Ethinyl Estradiol 1 Each Tablet, 1 Each Oral Daily 12/26/15 Discontinued Cefdinir (Omnicef) 300 Mg Capsule, 300 Mg Oral Every 12 Hrs On Schedule 12/31 Discontinued Doxycycline Hyclate 100 Mg Tablet, 100 Mg Oral Daily@01/01/16 Discontinued Ibuprofen (Motrin) 600 Mg Tablet, 600 [...] discharge instructions. Plan of Care Discharge Date 07/18/16 6:51pm Disposition 01 HOME OR SELF-CARE Condition at Discharge Stable Instructions/Education Provided Lorazepam Anxiety, Adult (DC) Post-traumatic Stress Disorder (DC) Prescriptions See Medication Section Referrals GLORIA SULTANA MD - Additional Instructions/Education The medications you received in the ER will cause drowsiness, so do not drive for 12 hours. Go home to rest and sleep. Keep your appointment at [place] tomorrow. Continue your regular medications. Some of your test results may not [...] worrisome symptoms. * Emergency Department phone number: [phone], x [phone]* MEDICAL RECORD If you need copies of your X-rays, call [phone] x [phone]. If you need copies of [...] the billing parties for services. SERVICE BILLING DEMOCRAT Emergency Room Services [facility] Physician Services [facility] X-rays [facility] Patients will receive bills for services from the appropriate provider. If you have any questions about your [facility] bill, our staff will be happy to assist you. Please call [phone], and ask for the billing department. THANK YOU for choosing [facility] as your emergency care provider! Care Plan and Goals ~~Discharge Care Plan~~ Problem: Problems with coping. Goal: Patient will use appropriate resources to deal with life situations. Instructions: Call [employer] hotline @ for assistance. Follow up with screener as directed. Functional Status No functional status results. Allergies, Adverse Reactions, Alerts Allergen Type Severity Reaction Status Last Updated Penicillin Allergy Unknown Active 07/18/16 Iodine Allergy Unknown Active 07/18/16 Erythromycin base Allergy Unknown Active 07/18/16 Sulfamethoxazole Allergy Unknown Active 07/18/16 Trimethoprim Allergy Unknown Active 07/18/16 Tramadol Allergy Unknown Active 07/18/16 Immunizations No immunization records. Vital Signs Acute Vital Signs Vital Response Date/Time Temperature (Fahrenheit) 97.7 07/18/2016 6:48pm Pulse 88 bpm 07/18/2016 6:48pm Respirations 16 07/18/2016 6:48pm Height 5 ft 2 in Weight 229 lb Body Mass Index 41.0 kg/m^2 Results Laboratory Results Test Name Result [...] (Auto) 0.0 10^3uL 07/18/2016 6:00pm 07/18/2016 6:08pm Sodium Level 143 mmol/L 135-150 07/18/2016 6:00pm [...] 1.200 1.1-1.8 07/18/2016 6:00pm 07/18/2016 6: 27pm C-Reactive Protein 1.10 mg/dL H 0.0-0.9 07/18/2016 6:00pm 07/18/2016 6: 27pm Salicylates Level < 1.0 mg/dL L 2.0-20.0 07/18/2016 6:00pm 07/18/2016 6: 27pm Acetaminophen Level < 10.0 mcg/mL L 10.0-30.0 07/18/2016 6:00pm 2016 6:27pm Serum Alcohol < 10.0 mg/dL L 10-80 07/18/2016 6:00pm 07/18/2016 6:27pm Procedures No known history of procedures. Encounters Encounter Location Arrival/Admit Date Discharge/Depart Date Attending Provider Departed Emergency Room [facility] 07/18/16 5:40pm 07/18/16 6:51pm RIZWAN GARAY DO Recent Diagnosis
--- OUTSIDE RECORDS SUMMARY | 2016-09-19 16:47 | XMS REPORT | Summary of Care ---
Author Author Gladys Jamil, Thaddeus Organization Unknown Address Unknown Phone Unavailable Care Team Providers Care Anesthesia Resident Name Role Phone Thaddeus Graham M.D. Unavailable Unavailable Yonatan Graham M.D. Unavailable Unavailable Sierra VistaThaddeus mortensen Unavailable Unavailable Unavailable Unavailable Functional Status [...] Capsule take 1 capsule daily Quantity: 30 [place] M.D., Thaddeus * Start 20-Jul-2015 Active TraZODone HCl - 150 MG Oral Tablet TAKE 1 TABLET AT BEDTIME. * Quantity: 30 Refills: 3 Gladys M.D., Thaddeus * Start 22-Jul-2015 Active Benzonatate 100 MG Oral Capsule TAKE 1 CAPSULE 3 TIMES DAILY NEEDED. * Quantity: 30 Refills: 2 [place] M.D., Thaddeus * Start 22-Jul-2015 Active GuaiFENesin ER 600 MG Oral Tablet Extended Release 12 Hour TAKE 2 TABLETS EVERY 12 HOURS. * Quantity: 40 Refills: 0 [place] M.D., Thaddeus * Start 28-Jul-2015 Active Montelukast Sodium 10 MG Oral Tablet TAKE 1 TABLET AT BEDTIME. * Quantity: 30 Refills: 5 [place] M.D., Thaddeus * Start Active Sprintec 28 0.25-35 MG-MCG Oral Tablet TAKE 1 TABLET DAILY DIRECTED. * Quantity: 1 Refills: 0 Gladys M.D., Thaddeus * Start 18-Oct-2015 Active 28 Tablet Disp Pack Ventolin HFA 108 (90 Base) MCG/ACT Inhalation Aerosol Solution INHALE 2 PUFFS EVERY 4 HOURS NEEDED FOR COUGH AND WHEEZE. * Quantity: 1 Refills: 0 [place] M.D., Thaddeus * Start 04-Nov-2015 Active 8 GM Inhaler Celecoxib 200 MG Oral Capsule take 1 capsule daily * Quantity: 30 Refills: 0 Gladys M.D., Thaddeus * Start 05-Dec-2015 Active ALPRAZolam XR 2 MG Oral Tablet Extended Release 24 Hour TAKE 1 TABLET DAILY. * Quantity: 30 Refills: 3 [place] M.D., Thaddeus * Start 03-Jan-2016 Active Lidocaine [...] UNTIL GONE. * Quantity: 20 Refills: 0 [place] M.D., Thaddeus * Start 13-Jan-2016 Active OLANZapine 10 MG Oral Tablet Dispersible TAKE 1 TABLET Daily at HS * Quantity: 30 Refills: 3 [place] M.D., Thaddeus * Start 20-Jan-2016 Active Mupirocin 2 % External Ointment APPLY A SMALL AMOUNT 3 TIMES DAILY DIRECTED. * Quantity: 1 Refills: 2 Gladys M.D., Thaddeus * Start 20-Jan-2016 Active 22 GM Tube [place] Carbonate ER 450 MG Oral Tablet Extended Release TAKE 2 TABLETS AT BEDTIME. * Quantity: 60 Refills: 5 [place] M.D., Thaddeus * Start 02-Feb-2016 Active Acamprosate Calcium 333 MG Oral Tablet Delayed Release TAKE 1 TABLET 3 TIMES DAILY. * Quantity: 90 Refills: 0 [place] M.D., Yonatan * Start 09-Mar-2016 Active Saxenda 18 MG/3ML Subcutaneous Solution Pen-injector Inject daily before breakfast. Start at 0.6mg and increase by 0.6mg weekly until getting to 3mg daily. * Quantity: 1 Refills: 5 [place] M.D.Thaddeus * Start 27-Mar-2016 Active 3 ML Pen (5 Pens) [place] ULtrafine 31 guage 3/8 inch pen needles * Quantity: 100 Refills: 11 [place] M.D., Thaddeus * Start 27-Mar-2016 Active Allergies [...] On 27-Apr-2016 08:30 Interventions Provided Medication Changes* [place] - Start * PredniSONE 5 MG Oral [...]
--- OUTSIDE RECORDS SUMMARY | 2016-09-19 16:47 | XMS REPORT | Summary of Care ---
Author Author Gladys Jamil, Thaddeus Organization Unknown Address Unknown Phone Unavailable Care Team Providers Care Rn Mds Coordinator Name Role Phone Thaddeus Graham M.D. Unavailable [...] Capsule take 1 capsule daily Quantity: 30 Gladys M.D., Thaddeus * Start 20-Jul-2015 Active TraZODone HCl - 150 MG Oral Tablet TAKE 1 TABLET AT BEDTIME. * Quantity: 30 Refills: 3 [place] M.D., Thaddeus * Start 22-Jul-2015 Active Benzonatate 100 MG Oral Capsule TAKE 1 CAPSULE 3 TIMES DAILY NEEDED. * Quantity: 30 Refills: 2 [place] M.D., Thaddeus * Start 22-Jul-2015 Active GuaiFENesin ER 600 MG Oral Tablet Extended Release 12 Hour TAKE 2 TABLETS EVERY 12 HOURS. * Quantity: 40 Refills: 0 [place] M.D., Thaddeus * Start 28-Jul-2015 Active Montelukast Sodium 10 MG Oral Tablet TAKE 1 TABLET AT BEDTIME. * Quantity: 30 Refills: 5 [place] M.D., Thaddeus * Start Active Sprintec 28 0.25-35 MG-MCG Oral Tablet TAKE 1 TABLET DAILY DIRECTED. * Quantity: 1 Refills: 0 [place] M.D., Thaddeus * Start 18-Oct-2015 Active 28 Tablet Disp Pack Ventolin HFA 108 (90 Base) MCG/ACT Inhalation Aerosol Solution INHALE 2 PUFFS EVERY 4 HOURS NEEDED FOR COUGH AND WHEEZE. * Quantity: 1 Refills: 0 [place] M.D., Thaddeus * Start 04-Nov-2015 Active 8 GM Inhaler Celecoxib 200 MG Oral Capsule take 1 capsule daily * Quantity: 30 Refills: 0 [place] M.D., Thaddeus * Start 05-Dec-2015 Active ALPRAZolam XR 2 MG Oral Tablet Extended Release 24 Hour Take one tablet by mouth daily * Quantity: 30 Refills: 2 [place] M.D., Thaddeus * Start 06-May-2016 Active Lidocaine [...] UNTIL GONE. * Quantity: 20 Refills: 0 [place] M.D., Thaddeus * Start 13-Jan-2016 Active OLANZapine 10 MG Oral Tablet Dispersible TAKE 1 TABLET Daily at HS * Quantity: 30 Refills: 3 [place] M.D., Thaddeus * Start 20-Jan-2016 Active Mupirocin 2 % External Ointment APPLY A SMALL AMOUNT 3 TIMES DAILY DIRECTED. * Quantity: 1 Refills: 2 [place] M.D.Thaddeus * Start 20-Jan-2016 Active 22 GM Tube [place] Carbonate ER 450 MG Oral Tablet Extended Release TAKE 2 TABLETS AT BEDTIME. * Quantity: 60 Refills: 5 [place] M.D.Thaddeus * Start 02-Feb-2016 Active Acamprosate Calcium 333 MG Oral Tablet Delayed Release TAKE 1 TABLET 3 TIMES DAILY. * Quantity: 90 Refills: 0 [place] M.D.Yonatan * Start 09-Mar-2016 Active Saxenda 18 MG/3ML Subcutaneous Solution Pen-injector Inject daily before breakfast. Start at 0.6mg and increase by 0.6mg weekly until getting to 3mg daily. * Quantity: 1 Refills: 5 [place] M.D.Thaddeus * Start 27-Mar-2016 Active 3 ML Pen (5 Pens) [place] ULtrafine 31 guage 3/8 inch pen needles * Quantity: 100 Refills: 11 Gladys M.D., Thaddeus * Start 27-Mar-2016 Active Minocycline HCl - 100 MG Oral Capsule TAKE 1 CAPSULE TWICE DAILY. * Quantity: 60 Refills: 0 Gladys M.D.Thaddeus * Start 27-Apr-2016 Active HydrOXYzine Pamoate 100 MG Oral Capsule 1 PO BID PRN anxiety attack * Quantity: 20 Refills: 2 Gladys M.D., Thaddeus * Start 27-Apr-2016 Active Lidocaine 5 % External Ointment Apply to painful area four times a day as needed * Quantity: 1 Refills: 2 [place] M.D., Thaddeus * Start 27-Apr-2016 Active 35 GM Tube Mupirocin 2 % External Ointment APPLY A SMALL AMOUNT 3 TIMES DAILY DIRECTED. * Quantity: 1 Refills: 2 Gladys M.D., Thaddeus * Start 01-May-2016 Active 22 GM Tube [...] unknown Vital Signs Date Test Result Details 01-May-2016 15:42 BP Systolic 124 mm[Hg] Status: Comments: Location: LUE; Position: Sitting BP Diastolic 78 mm[Hg] Status: Comments: Location: LUE; Position: Sitting Temperature 97.5 f Status: Comments: Method: Tympanic Heart Rate 93 /min Status: Comments: Location: ; Physical Findings 100 Status: Comments: O2 Saturation 27-Apr-2016 08:38 BP Systolic 118 mm[Hg] Status: Comments: Location: LUE; Position: Sitting BP Diastolic 80 mm[Hg] Status: Comments: Location: LUE; Position: Sitting Temperature 97.5 f Status: Comments: Method: Tympanic Heart Rate 84 /min Status: Comments: Location: ; Weight 227 lb Status: Physical Findings 98 Status: Comments: O2 Saturation Body Mass Index Calculated 41.52 kg/m2 Status: Body Surface Area Calculated 2.02 m2 Status: Results Date Description Value Details Results not documented Plan of Care Name Dates Details Planned Observations Planned Goals not documented Planned Encounters Appointment; Provider: Elizabeth Luz On 21-May-2016 13:45 Appointment; Provider: Thaddeus Graham M.D. On 11-May-2016 16:00 Interventions Provided Medication Changes* HydrOXYzine Pamoate 100 MG Oral Capsule - Start * Lidocaine 5 % External Ointment - Start * Minocycline HCl - 100 MG Oral Capsule - Start Instructions Name Dates Details Instructions [...]
--- OUTSIDE RECORDS SUMMARY | 2016-09-19 16:48 | XMS REPORT | Summary of Care ---
Author Author Gladys Jamil, Thaddeus Organization Unknown Address Unknown Phone Unavailable Care Team Providers Care Manager Software Development Name Role Phone Thaddeus Graham M.D. Unavailable Unavailable Yonatan Graham M.D. Unavailable Thaddeus Graham Unavailable Unavailable Unavailable Unavailable [...] Active Migraine headache (346.90, G43.909) Status: Active Medications Name Dates Details FLUoxetine HCl - 40 MG Oral Capsule take 1 capsule daily Quantity: 30 Gladys M.D., Thaddeus * Start 20-Jul-2015 Active TraZODone HCl - 150 MG Oral Tablet TAKE ONE TABLET BY MOUTH AT BEDTIME * Quantity: 30 Refills: 2 Gladys M.D., Thaddeus * Start 19-Jun-2016 Active Benzonatate 100 MG Oral Capsule TAKE 1 CAPSULE 3 TIMES DAILY NEEDED. * Quantity: 30 Refills: 2 [place] M.D., Thaddeus * Start 22-Jul-2015 Active GuaiFENesin ER 600 MG TB12 TAKE 2 TABLETS EVERY 12 HOURS. * Quantity: 40 Refills: 0 Gladys M.D., Thaddeus * Start 28-Jul-2015 Active Montelukast Sodium 10 MG Oral Tablet TAKE 1 TABLET AT BEDTIME. * Quantity: 30 Refills: 5 Gladys M.D., Thaddeus * Start Active Sprintec 28 0.25-35 MG-MCG Oral Tablet TAKE 1 TABLET DAILY DIRECTED. * Quantity: 1 Refills: 0 Gladys M.D., Thaddeus * Start 18-Oct-2015 Active 28 Tablet Disp Pack Ventolin HFA 108 (90 Base) MCG/ACT Inhalation Aerosol Solution INHALE 2 PUFFS EVERY 4 HOURS NEEDED FOR COUGH AND WHEEZE. * Quantity: 1 Refills: 0 [place] M.D., Thaddeus * Start 04-Nov-2015 Active 8 GM Inhaler Celecoxib 200 MG Oral Capsule take 1 capsule daily * Quantity: 30 Refills: 0 [place] M.DThaddeus Heredia * Start 05-Dec-2015 Active ALPRAZolam XR 2 MG Oral Tablet Extended Release 24 Hour Take one tablet by mouth daily * Quantity: 30 Refills: 2 [place] M.D.Thaddeus * Start 06-May-2016 Active Lidocaine 5 % External Ointment Apply to painful area four times a day as needed * Quantity: 1 Refills: 2 Gladys M.D., Thaddeus * Start 04-Jan-2016 Active 35 GM Tube Clindamycin HCl - 300 MG Oral Capsule take 1 po QID * Quantity: 60 Refills: 0 [place] M.D.Thaddeus * Start 05-Jan-2016 Active Cefdinir 300 MG Oral Capsule TAKE 1 CAPSULE EVERY 12 HOURS UNTIL GONE. * Quantity: 20 Refills: 0 [place] M.D.Thaddeus * Start 13-Jan-2016 Active OLANZapine 10 MG Oral Tablet Disintegrating TAKE 1 TABLET Daily at HS * Quantity: 30 Refills: 3 Gladys M.D.Thaddeus * Start 20-Jan-2016 Active Mupirocin 2 % External Ointment APPLY A SMALL AMOUNT 3 TIMES DAILY DIRECTED. * Quantity: 1 Refills: 2 [place] M.D.Thaddeus * Start 20-Jan-2016 Active 22 GM Tube [place] Carbonate ER 450 MG Oral Tablet Extended Release TAKE 2 TABLETS AT BEDTIME. * Quantity: 60 Refills: 5 [place] M.D.Thaddeus * Start 02-Feb-2016 Active Acamprosate Calcium 333 MG Oral Tablet Delayed Release TAKE 1 TABLET 3 TIMES DAILY. * Quantity: 90 Refills: 0 [place] MYonatan Sierra * Start 09-Mar-2016 Active [place] ULtrafine 31 guage 3/8 inch pen needles * Quantity: 100 Refills: 11 [place] M.D.Thaddeus * Start 27-Mar-2016 Active Minocycline HCl - 100 MG Oral Capsule TAKE ONE CAPSULE BY MOUTH TWICE A DAY * Quantity: 60 Refills: 5 [place] M.D.Thaddeus * Start 27-Jun-2016 Active HydrOXYzine Pamoate 100 MG Oral Capsule 1 PO BID PRN anxiety attack * Quantity: 20 Refills: 2 Gladys M.D., Thaddeus * Start 27-Apr-2016 Active Lidocaine 5 % External Ointment Apply to painful area four times a day as needed * Quantity: 1 Refills: 2 [place] M.D., Thaddeus * Start 27-Apr-2016 Active 35 GM Tube Mupirocin 2 % External Ointment APPLY A SMALL AMOUNT 3 TIMES DAILY DIRECTED. * Quantity: 1 Refills: 2 Gladys M.D., Thaddeus * Start 01-May-2016 Active 22 GM Tube Phentermine HCl - 15 MG Oral Capsule TAKE 1 CAPSULE EVERY MORNING BEFORE BREAKFAST. * Quantity: 15 Refills: 0 Gladys M.D., Thaddeus * Start Active Topiramate 25 MG Oral Tablet TAKE 1 TABLET TWICE DAILY. * Quantity: 60 Refills: 11 [place] M.D., Thaddeus * Start Active SUMAtriptan Succinate 100 MG Oral Tablet TAKE 1 TABLET AT ONSET OF MIGRAINE HEADACHE. MAY REPEAT IN 2 HOURS IF NEEDED. * Quantity: 30 Refills: 4 Gladys M.D., Thaddeus * Start Active Allergies [...] unknown Vital Signs Date Test Result Details 14:16 BP Systolic 114 mm[Hg] Status: Comments: [...] Encounters Appointment; Provider: Thaddeus Graham M.D. On 15:15 Interventions Provided Medication Changes* Phentermine HCl - 15 MG Oral Capsule - Start * Saxenda 18 MG/3ML Subcutaneous Solution Pen-injector - Stop * SUMAtriptan Succinate 100 MG Oral Tablet - Start * Topiramate 25 MG Oral Tablet - Start Instructions Name [...]
--- OUTSIDE RECORDS SUMMARY | 2016-09-19 16:48 | XMS REPORT | Summary of Care ---
Author Author Thaddeus Graham M.D. Organization Unknown Address Unknown Phone Unavailable Care Team Providers Care Law Enforcement Officer Name Role Phone Thaddeus Graham M.D. [...] 1 CAPSULE DAILY. * Start 20-Jul-2015 Active [place] Carbonate 300 MG Oral Capsule TAKE 1 [...] TID PRN * Quantity: 30 Refills: 0 Beltrami M.D., Thaddeus * Start 28-Jul-2015 Active GuaiFENesin ER 600 MG Oral Tablet Extended Release 12 Hour TAKE 2 TABLETS EVERY 12 HOURS. * Quantity: 40 Refills: 0 Beltrami M.D., Thaddeus * Start 28-Jul-2015 Active Cefdinir 300 MG Oral Capsule TAKE 1 CAPSULE TWICE DAILY UNTIL GONE. * Quantity: 14 Refills: 0 Beltrami M.D., Thaddeus * Start 28-Jul-2015 Active LevoFLOXacin 750 MG Oral Tablet TAKE 1 TABLET DAILY. * Quantity: 20 Refills: 0 Beltrami M.D., Thaddeus * Start 04-Aug-2015 Active Montelukast Sodium 10 MG Oral Tablet TAKE 1 TABLET AT BEDTIME. * Quantity: 30 Refills: 5 Beltrami M.D., Thaddeus * Start Active Nitrofurantoin Monohyd Macro 100 MG Oral Capsule TAKE 1 CAPSULE TWICE DAILY UNTIL GONE. * Quantity: 20 Refills: 0 Beltrami M.D., Thaddeus * Start Active Phenazopyridine HCl - 200 MG Oral Tablet 1 PO TID X 2 days * Quantity: 6 Refills: 0 Gladys M.D., Thaddeus * Start Active PredniSONE 50 MG Oral Tablet take 1 [...] AND WHEEZE. * Quantity: 1 Refills: 0 Beltrami M.D., Thaddeus * Start 04-Nov-2015 Active 8 [...] times daily * Quantity: 90 Refills: 6 Beltrami M.D., Tahddeus * Start 05-Dec-2015 Active Celecoxib 200 MG [...] as needed * Quantity: 1 Refills: 1 Beltrami M.D.Thaddeus * Start 04-Jan-2016 Active 35 GM Tube Sprintec 28 0.25-35 MG-MCG Oral Tablet TAKE 1 TABLET DAILY DIRECTED. * Quantity: 1 Refills: 0 Beltrami M.D., Thaddeus * Start 18-Oct-2015 Active 28 Tablet Disp Pack Allergies and Adverse Reactions Name Dates Details [...] Provider: Thaddeus Graham M.D. On 10-Jan-2016 10:45 Instructions Name Dates Details Instructions not documented Encounters Appointment; Thaddeus Graham M.D. Encounter Diagnosis: Problem not documented On 03-Jan-2016 09:00 Appointment; Thaddeus Graham M.D. Encounter Diagnosis: Problem not documented On 16-Dec-2015 16:15 Appointment; Thaddeus Graham M.D. Encounter Diagnosis: Problem not documented On 02-Dec-2015 16:45 Appointment; Thaddeus Graahm M.D. Encounter Diagnosis: Problem not documented On [...]
--- OUTSIDE RECORDS SUMMARY | 2016-09-19 16:48 | XMS REPORT | Summary of Care ---
Author Author Thaddeus Graham M.D. Organization Unknown Address Unknown Phone Unavailable Care Team Providers Care Digital Librarian Name Role Phone Thaddeus Graham M.D. Unavailable [...] 1 CAPSULE DAILY. * Start 20-Jul-2015 Active [place] Carbonate 300 MG Oral Capsule TAKE 1 [...] TID PRN * Quantity: 30 Refills: 0 [place] M.D., Thaddeus * Start 28-Jul-2015 Active GuaiFENesin ER 600 MG Oral Tablet Extended Release 12 Hour TAKE 2 TABLETS EVERY 12 HOURS. * Quantity: 40 Refills: 0 [place] M.D., Thaddeus * Start 28-Jul-2015 Active Cefdinir 300 MG Oral Capsule TAKE 1 CAPSULE TWICE DAILY UNTIL GONE. * Quantity: 14 Refills: 0 [place] M.D., Thaddeus * Start 28-Jul-2015 Active LevoFLOXacin 750 MG Oral Tablet TAKE 1 TABLET DAILY. * Quantity: 20 Refills: 0 [place] M.D., Thaddeus * Start 04-Aug-2015 Active Montelukast Sodium 10 MG Oral Tablet TAKE 1 TABLET AT BEDTIME. * Quantity: 30 Refills: 5 [place] M.D., Thaddeus * Start Active Nitrofurantoin Monohyd Macro 100 MG Oral Capsule TAKE 1 CAPSULE TWICE DAILY UNTIL GONE. * Quantity: 20 Refills: 0 [place] M.D., Thaddeus * Start Active Phenazopyridine HCl - 200 MG Oral Tablet 1 PO TID X 2 days * Quantity: 6 Refills: 0 Gladys M.D., Thaddeus * Start Active Sprintec 28 0.25-35 MG-MCG Oral Tablet TAKE 1 TABLET DAILY DIRECTED. * Quantity: 1 Refills: 0 [place] M.D., Thaddeus * Start 18-Oct-2015 Active 28 Tablet Disp Pack PredniSONE 50 MG Oral Tablet take 1 daily for 5 days * Quantity: 5 Refills: 0 [place] M.D., Thaddeus * Start 04-Nov-2015 Active Cefdinir 300 MG Oral Capsule TAKE 1 CAPSULE EVERY 12 HOURS UNTIL GONE. * Quantity: 20 Refills: 0 [place] M.D., Thaddeus * Start 04-Nov-2015 Active Ventolin HFA 108 (90 Base) MCG/ACT Inhalation Aerosol Solution INHALE 2 PUFFS EVERY 4 HOURS NEEDED FOR COUGH AND WHEEZE. * Quantity: 1 Refills: 0 [place] M.D., Thaddeus * Start 04-Nov-2015 Active 8 GM Inhaler TiZANidine HCl - 4 MG Oral Tablet TAKE 1 TABLET 3 TIMES DAILY NEEDED. * Quantity: 30 Refills: 0 [place] M.D., Thaddeus * Start 02-Dec-2015 Active TraMADol HCl - 50 MG Oral Tablet TAKE 1 TO 2 TABLETS 4 TIMES DAILY NEEDED FOR PAIN. * Quantity: 60 Refills: 1 [place] M.D., Thaddeus * Start 02-Dec-2015 Active Salsalate 750 MG Oral Tablet TAKE 1 TABLET 3 times daily * Quantity: 90 Refills: 6 [place] M.D., Thaddeus * Start 05-Dec-2015 Active ALPRAZolam XR 2 MG Oral Tablet Extended Release 24 Hour TAKE 1 TABLET DAILY. * Quantity: 30 Refills: 0 Gladys M.D., Thaddeus * Start 03-Jan-2016 Active Clindamycin HCl - 300 MG Oral Capsule take 1 po QID * Quantity: 60 Refills: 0 Gladys M.D., Thaddeus * Start 05-Jan-2016 Active Celecoxib 200 MG Oral Capsule take 1 capsule daily * Quantity: 30 Refills: 0 [place] M.D., Thaddeus * Start 05-Dec-2015 Active Lidocaine 5 % External Ointment Apply to painful area four times a day as needed * Quantity: 1 Refills: 1 [place] M.D., Thaddeus * Start 04-Jan-2016 Active 35 GM Tube Allergies and Adverse Reactions Name [...] On 10-Jan-2016 10:45 Interventions Provided Medication Changes* PredniSONE 50 MG [...]
--- OUTSIDE RECORDS SUMMARY | 2016-09-19 16:49 | XMS REPORT | Summary of Care ---
Author Author Gladys Jamil, Thaddeus Organization Unknown Address Unknown Phone Unavailable Care Team Providers Care Cognos Name Role Phone Thaddeus Graham M.D. Unavailable [...] Status: Active Cellulitis (682.9, L03.90) Status: Active Low back pain (724.2, M54.5) Status: Active Medications Name Dates Details FLUoxetine HCl - 40 MG Oral Capsule take 1 capsule daily Quantity: 30 Gladys M.D., Thaddeus * Start 20-Jul-2015 Active TraZODone HCl - 150 MG Oral Tablet TAKE 1 TABLET AT BEDTIME. * Quantity: 30 Refills: 3 [place] M.D., Thaddeus * Start 22-Jul-2015 Active Benzonatate 100 MG Oral Capsule TAKE 1 CAPSULE 3 TIMES DAILY NEEDED. * Quantity: 30 Refills: 2 [place] M.D., Thaddeus * Start 22-Jul-2015 Active GuaiFENesin ER 600 MG Oral Tablet Extended Release 12 Hour TAKE 2 TABLETS EVERY 12 HOURS. * Quantity: 40 Refills: 0 [place] M.D., Thaddeus * Start 28-Jul-2015 Active Montelukast Sodium 10 MG Oral Tablet TAKE 1 TABLET AT BEDTIME. * Quantity: 30 Refills: 5 [place] M.D., Thaddeus * Start Active Sprintec 28 0.25-35 MG-MCG Oral Tablet TAKE 1 TABLET DAILY DIRECTED. * Quantity: 1 Refills: 0 [place] M.D., Thaddeus * Start 18-Oct-2015 Active 28 Tablet Disp Pack Ventolin HFA 108 (90 Base) MCG/ACT Inhalation Aerosol Solution INHALE 2 PUFFS EVERY 4 HOURS NEEDED FOR COUGH AND WHEEZE. * Quantity: 1 Refills: 0 [place] M.D., Thaddeus * Start 04-Nov-2015 Active 8 GM Inhaler Celecoxib 200 MG Oral Capsule take 1 capsule daily * Quantity: 30 Refills: 0 [place] M.D., Thaddeus * Start 05-Dec-2015 Active ALPRAZolam XR 2 MG Oral Tablet Extended Release 24 Hour TAKE 1 TABLET DAILY. * Quantity: 30 Refills: 3 [place] M.D., Thaddeus * Start 03-Jan-2016 Active Lidocaine 5 % External Ointment Apply to painful area four times a day as needed * Quantity: 1 Refills: 2 [place] M.D., Thaddeus * Start 04-Jan-2016 Active 35 GM Tube Clindamycin HCl - 300 MG Oral Capsule take 1 po QID * Quantity: 60 Refills: 0 Gladys M.D., Thaddeus * Start 05-Jan-2016 Active Cefdinir 300 MG Oral Capsule TAKE 1 CAPSULE EVERY 12 HOURS UNTIL GONE. * Quantity: 20 Refills: 0 [place] M.D., Thaddeus * Start 13-Jan-2016 Active OLANZapine 10 MG Oral Tablet Dispersible TAKE 1 TABLET Daily at HS * Quantity: 30 Refills: 3 Gladys M.D., Thaddeus * Start 20-Jan-2016 Active Mupirocin 2 % External Ointment APPLY A SMALL AMOUNT 3 TIMES DAILY DIRECTED. * Quantity: 1 Refills: 2 Gladys M.D., Thaddeus * Start 20-Jan-2016 Active 22 GM Tube [place] Carbonate ER 450 MG Oral Tablet Extended Release TAKE 2 TABLETS AT BEDTIME. * Quantity: 60 Refills: 5 [place] M.D., Thaddeus * Start 02-Feb-2016 Active Acamprosate Calcium 333 MG Oral Tablet Delayed Release TAKE 1 TABLET 3 TIMES DAILY. * Quantity: 90 Refills: 0 [place] M.D., Yonatan * Start 09-Mar-2016 Active Saxenda 18 MG/3ML Subcutaneous Solution Pen-injector Inject daily before breakfast. Start at 0.6mg and increase by 0.6mg weekly until getting to 3mg daily. * Quantity: 1 Refills: 5 [place] M.D.Thaddeus * Start 27-Mar-2016 Active 3 ML Pen (5 Pens) [place] ULtrafine 31 guage 3/8 inch pen needles * Quantity: 100 Refills: 11 [place] M.D., Thaddeus * Start 27-Mar-2016 Active Minocycline HCl - 100 MG Oral Capsule TAKE 1 CAPSULE TWICE DAILY. * Quantity: 60 Refills: 0 [place] M.D.Thaddeus * Start 27-Apr-2016 Active HydrOXYzine Pamoate 100 MG Oral Capsule 1 PO BID PRN anxiety attack * Quantity: 20 Refills: 2 Gladys M.D., Thaddeus * Start 27-Apr-2016 Active Lidocaine 5 % External Ointment Apply to painful area four times a day as needed * Quantity: 1 Refills: 2 [place] M.D., Thaddeus * Start 27-Apr-2016 Active 35 GM Tube Mupirocin 2 % External Ointment APPLY A SMALL AMOUNT 3 TIMES DAILY DIRECTED. * Quantity: 1 Refills: 2 [place] M.D., Thaddeus * Start 01-May-2016 Active 22 [...] On 11-May-2016 16:00 Interventions Provided Medication Changes* Mupirocin 2 % External Ointment - Start Instructions Name Dates Details Instructions [...] Problem not documented On 14:30 Appointment; Thaddeus Graahm M.D. Encounter Diagnosis: Problem [...]
--- OUTSIDE RECORDS SUMMARY | 2016-09-19 16:49 | XMS REPORT | Summary of Care ---
Author Author Thaddeus Graham M.D. Organization Unknown Address Unknown Phone Unavailable Care Team Providers Care Filter Press Tender Name Role Phone Thaddeus Graham M.D. Unavailable [...] 1 CAPSULE DAILY. * Start 20-Jul-2015 Active [place] Carbonate 300 MG Oral Capsule TAKE 1 CAPSULE 3 TIMES DAILY. * Refills: 0 * Start 20-Jul-2015 Active TraZODone HCl - 150 MG Oral Tablet TAKE 1 TABLET AT BEDTIME. * Refills: 0 * Start 22-Jul-2015 Active Benzonatate 100 MG Oral Capsule TAKE 1 CAPSULE 3 TIMES DAILY NEEDED. * Quantity: 30 Refills: 2 [place] M.D., Thaddeus * Start 22-Jul-2015 Active Proventil HFA 108 (90 Base) MCG/ACT Inhalation Aerosol Solution INHALE 2 PUFFS EVERY 4 HOURS NEEDED * Quantity: 1 Refills: 6 [place] M.D., Thaddeus * Start 22-Jul-2015 Active 6.7 GM Inhaler Indomethacin 50 MG Oral Capsule TAKE 1 CAPSULE 3 TIMES DAILY NEEDED. * Quantity: 90 Refills: 1 [place] M.D., Thaddeus * Start 28-Jul-2015 Active OxyCODONE HCl - 5 MG Oral Tablet TAKE 1 TABLET EVERY 4 HOURS NEEDED FOR PAIN. * Quantity: 50 Refills: 0 [place] M.D., Thaddeus * Start 28-Jul-2015 Active GuaiFENesin ER 600 MG Oral Tablet Extended Release 12 Hour TAKE 2 TABLETS EVERY 12 HOURS. * Quantity: 40 Refills: 0 [place] M.D., Thaddeus * Start 28-Jul-2015 Active Cefdinir 300 MG Oral Capsule TAKE 1 CAPSULE TWICE DAILY UNTIL GONE. * Quantity: 14 Refills: 0 [place] M.D., Thaddeus * Start 28-Jul-2015 Active LevoFLOXacin 750 MG Oral Tablet TAKE 1 TABLET DAILY. * Quantity: 20 Refills: 0 [place]ys M.D., Thaddeus * Start 04-Aug-2015 Active Montelukast Sodium 10 MG Oral Tablet TAKE 1 TABLET AT BEDTIME. * Quantity: 30 Refills: 5 [place] M.D., Thaddeus * Start Active Nitrofurantoin Monohyd Macro 100 MG Oral Capsule TAKE 1 CAPSULE TWICE DAILY UNTIL GONE. * Quantity: 20 Refills: 0 Gladys M.D., Thaddeus * Start Active Phenazopyridine HCl - 200 MG Oral Tablet 1 PO TID X 2 days * Quantity: 6 Refills: 0 [place] M.D., Thaddeus * Start Active Sprintec 28 0.25-35 MG-MCG Oral Tablet TAKE 1 TABLET DAILY DIRECTED. * Quantity: 1 Refills: 0 Gladys M.D., Thaddeus * Start 18-Oct-2015 Active 28 Tablet Disp Pack PredniSONE 50 MG Oral Tablet take 1 daily for 5 days * Quantity: 5 Refills: 0 [place] M.D., Thaddeus * Start 04-Nov-2015 Active Cefdinir 300 MG Oral Capsule TAKE 1 CAPSULE EVERY 12 HOURS UNTIL GONE. * Quantity: 20 Refills: 0 [place] M.D., Thaddeus * Start 04-Nov-2015 Active Xopenex HFA 45 MCG/ACT Inhalation Aerosol INHALE 2 PUFFS EVERY 4 HOURS NEEDED * Quantity: 1 Refills: 3 [place] M.D., Thaddeus * Start 04-Nov-2015 Active 15 GM Inhaler Allergies and Adverse Reactions Name [...] Tonsillectomy Urinalysis, reflex to Micro and Culture ([facility]) 8016 Ordered: Oct-2015 XRay CHEST-PA & LAT Ordered: 04-Nov-2015 Immunization Name Dates Details Immunizations not documented [...] 14:48 Urinalysis, reflex to Micro and Culture ([facility] ) 8016 pH 6.0 Range: 5.0-7.5 [...] 0-2 /HPF Range: 0-2 16:12 URINE CULTURE [id number] Comments: [employer] performed at: [place], [facility], [address] [place], [address], Fixing Machine Operator: Nathan Baltazar D.O., MPHQuest Collection Date/Time: [id number] Results Received Date/Time: [id number] Reported Date/Time: [id number] FASTING:[facility]Quest performed at: [place], [facility], [address] [place], [address], Fixing Machine Operator: Nathan Baltazar D.O. MPHQuest Collection Date/Time: [id number] Results Received Date/Time: [id number] Reported Date/Time: FASTING:NO CULTURE, URINE, ROUTINE SEE NOTE (Abnormal) Comments: CULTURE, URINE, ROUTINE MICRO NUMBER: [id number] TEST STATUS: FINAL SPECIMEN SOURCE : URINE [...] performed to to confirm susceptibility to parenteral cefazolin.[[place]]----- Plan of Care Name Dates Details Planned Observations Planned Goals not documented Interventions Provided Medication Changes* Cefdinir 300 MG Oral Capsule - Start * Codeine Sulfate 30 MG Oral Tablet - Stop * Indomethacin 50 MG Oral Capsule - Renew * OxyCODONE HCl - 5 MG Oral Tablet - Renew with Changes * PredniSONE 50 MG Oral Tablet - Start * Xopenex HFA 45 MCG/ACT Inhalation Aerosol - Start Labs/Procedures/Imaging* XRay CHEST-PA & LAT; To be Done: 04 Nov 2015 Instructions Name Dates Details Instructions not documented [...]
--- OUTSIDE RECORDS SUMMARY | 2016-09-19 16:50 | XMS REPORT | Summary of Care ---
Author Author Thaddeus Graham M.D. Organization Unknown Address Unknown Phone Unavailable Care Team Providers Care Flight Engineer Helicopter Name Role Phone Thaddeus Graham M.D. Unavailable [...] 1 CAPSULE DAILY. * Start 20-Jul-2015 Active [place] Carbonate 300 MG Oral Capsule TAKE 1 CAPSULE 3 TIMES DAILY. * Refills: 0 * Start 20-Jul-2015 Active TraZODone HCl - 150 MG Oral Tablet TAKE 1 TABLET AT BEDTIME. * Refills: 0 * Start 22-Jul-2015 Active Benzonatate 100 MG Oral Capsule TAKE 1 CAPSULE 3 TIMES DAILY NEEDED. * Quantity: 30 Refills: 2 [place] M.D., Thaddeus * Start 22-Jul-2015 Active Indomethacin 50 MG Oral Capsule TAKE 1 CAPSULE 3 TIMES DAILY NEEDED. * Quantity: 90 Refills: 1 [place] M.D., Thaddeus * Start 28-Jul-2015 Active OxyCODONE HCl - 5 MG Oral Tablet TAKE 1 TABLET EVERY 4 HOURS NEEDED FOR PAIN. * Quantity: 50 Refills: 0 [place] M.D., Thaddeus * Start 28-Jul-2015 Active GuaiFENesin ER 600 MG Oral Tablet Extended Release 12 Hour TAKE 2 TABLETS EVERY 12 HOURS. * Quantity: 40 Refills: 0 Gladys M.D., Thaddeus * Start 28-Jul-2015 Active Cefdinir 300 MG Oral Capsule TAKE 1 CAPSULE TWICE DAILY UNTIL GONE. * Quantity: 14 Refills: 0 [place] M.D., Thaddeus * Start 28-Jul-2015 Active LevoFLOXacin 750 MG Oral Tablet TAKE 1 TABLET DAILY. * Quantity: 20 Refills: 0 [place] M.D., Thaddeus * Start 04-Aug-2015 Active Montelukast Sodium 10 MG Oral Tablet TAKE 1 TABLET AT BEDTIME. * Quantity: 30 Refills: 5 [place] M.D., Thaddeus * Start Active Nitrofurantoin Monohyd Macro 100 MG Oral Capsule TAKE 1 CAPSULE TWICE DAILY UNTIL GONE. * Quantity: 20 Refills: 0 [place] M.D., Thaddeus * Start Active Phenazopyridine HCl - 200 MG Oral Tablet 1 PO TID X 2 days * Quantity: 6 Refills: 0 [place] M.D., Thaddeus * Start Active Sprintec 28 0.25-35 MG-MCG Oral Tablet TAKE 1 TABLET DAILY DIRECTED. * Quantity: 1 Refills: 0 [place] M.D., Thaddeus * Start 18-Oct-2015 Active 28 [...] Tonsillectomy Urinalysis, reflex to Micro and Culture ([facility]) 8016 Ordered: Oct-2015 Immunization Name Dates Details [...] BP Systolic 118 mm[Hg] Status: Comments: [place] [facility] [place]: [place]itting BP Diastolic 62 mm[Hg] Status: Comments: [place] [facility] Position: Sitting Temperature 98.2 f Status: Comments: Method: Tympanic Heart Rate 77 /min Status: Comments: Location: ; Physical Findings 98 Status: Comments: O2 Saturation Results Date Description Value Details 14:48 Urinalysis, reflex to Micro and Culture ([facility] ) 8016 pH 6.0 Range: 5.0-7.5 SP [...] 0-2 /HPF Range: 0-2 16:12 URINE CULTURE [id number] Comments: [employer] performed at: [facility], [address] [place], [address], Administrative Assistant Coordinator: Nathan Baltazar D.O., MPHQuest Collection Date/Time: [id number] Results Received Date/Time: [id number] Reported Date/Time: [id number] FASTING:NOQuest performed at: [facility], [address] [place], [address], Administrative Assistant Coordinator: Nathan Baltazar D.O., MPHQuest Collection Date/Time: [id number] Results Received Date/Time: [id number] Reported Date/Time: [id number] FASTING:NO CULTURE, URINE, ROUTINE SEE NOTE (Abnormal) Comments: CULTURE, URINE, ROUTINE MICRO NUMBER: [id number] TEST STATUS: FINAL SPECIMEN SOURCE : URINE [...] HFA 45 MCG/ACT Inhalation Aerosol - Start Instructions Name Dates Details Instructions [...]
--- OUTSIDE RECORDS SUMMARY | 2016-09-19 16:50 | XMS REPORT ---
Author GABE [facility] [employer] Address Unknown Phone Unavailable Care Team Providers Care Director Of Restaurant Operations Name Role Phone GABE CR CP Unavailable Allergies No Known Allergies Problems [...]
--- OUTSIDE RECORDS SUMMARY | 2016-09-19 16:50 | XMS REPORT | Summary of Care ---
Author Author Thaddeus Graham M.D. Organization Unknown Address Unknown Phone Unavailable Care Team Providers Care Anaesthetic Technician Name Role Phone Thaddeus Graham M.D. [...] 1 CAPSULE DAILY. * Start 20-Jul-2015 Active [place] Carbonate 300 MG Oral Capsule TAKE 1 [...] TID PRN * Quantity: 30 Refills: 0 [place] M.D., Thaddeus * Start 28-Jul-2015 Active GuaiFENesin ER 600 MG Oral Tablet Extended Release 12 Hour TAKE 2 TABLETS EVERY 12 HOURS. * Quantity: 40 Refills: 0 [place] M.D., Thaddeus * Start 28-Jul-2015 Active Cefdinir 300 MG Oral Capsule TAKE 1 CAPSULE TWICE DAILY UNTIL GONE. * Quantity: 14 Refills: 0 [place] M.D., Thaddeus * Start 28-Jul-2015 Active LevoFLOXacin 750 MG Oral Tablet TAKE 1 TABLET DAILY. * Quantity: 20 Refills: 0 [place] M.D., Thaddeus * Start 04-Aug-2015 Active Montelukast Sodium 10 MG Oral Tablet TAKE 1 TABLET AT BEDTIME. * Quantity: 30 Refills: 5 [place] M.D., Thaddeus * Start Active Nitrofurantoin Monohyd Macro 100 MG Oral Capsule TAKE 1 CAPSULE TWICE DAILY UNTIL GONE. * Quantity: 20 Refills: 0 [place] M.D., Thaddeus * Start Active Phenazopyridine HCl - 200 MG Oral Tablet 1 PO TID X 2 days * Quantity: 6 Refills: 0 Gladys M.D., Thaddeus * Start Active Sprintec 28 0.25-35 MG-MCG Oral Tablet TAKE 1 TABLET DAILY DIRECTED. * Quantity: 1 Refills: 0 [place] M.D., Thaddeus * Start 18-Oct-2015 Active 28 Tablet Disp Pack PredniSONE 50 MG Oral Tablet take 1 daily for 5 days * Quantity: 5 Refills: 0 [place] M.D., Thaddeus * Start 04-Nov-2015 Active Cefdinir 300 MG Oral Capsule TAKE 1 CAPSULE EVERY 12 HOURS UNTIL GONE. * Quantity: 20 Refills: 0 [place] M.D., Thaddeus * Start 04-Nov-2015 Active Ventolin HFA 108 (90 Base) MCG/ACT Inhalation Aerosol Solution INHALE 2 PUFFS EVERY 4 HOURS NEEDED FOR COUGH AND WHEEZE. * Quantity: 1 Refills: 0 [place] M.D., Thaddeus * Start 04-Nov-2015 Active 8 GM Inhaler TiZANidine HCl - 4 MG Oral Tablet TAKE 1 TABLET 3 TIMES DAILY NEEDED. * Quantity: 30 Refills: 0 [place] M.D., Thaddeus * Start 02-Dec-2015 Active TraMADol HCl - 50 MG Oral Tablet TAKE 1 TO 2 TABLETS 4 TIMES DAILY NEEDED FOR PAIN. * Quantity: 60 Refills: 1 [place] M.D., Thaddeus * Start 02-Dec-2015 Active Salsalate 750 MG Oral Tablet TAKE 1 TABLET 3 times daily * Quantity: 90 Refills: 6 [place] M.D., Thaddeus * Start 05-Dec-2015 Active Celecoxib [...]
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
--- OUTSIDE RECORDS SUMMARY | 2016-09-19 16:51 | XMS REPORT | Summary of Care ---
Author Author Thaddeus Graham M.D. Organization Unknown Address Unknown Phone Unavailable Care Team Providers Care Non Categorical Preschool Teacher Name Role Phone Thaddeus Graham M.D. Unavailable [...] Active Urinary incontinence (788.30, R32) Status: Active Medications Name Dates Details PROzac 20 MG Oral Capsule TAKE 1 CAPSULE DAILY. * Start 20-Jul-2015 Active Gu-Win Carbonate 300 MG Oral Capsule TAKE 1 CAPSULE 3 TIMES DAILY. * Refills: 0 * Start 20-Jul-2015 Active TraZODone HCl - 150 MG Oral Tablet TAKE 1 TABLET AT BEDTIME. * Refills: 0 * Start 22-Jul-2015 Active Benzonatate 100 MG Oral Capsule TAKE 1 CAPSULE 3 TIMES DAILY NEEDED. * Quantity: 30 Refills: 2 [place] M.D., Thaddeus * Start 22-Jul-2015 Active Proventil HFA 108 (90 Base) MCG/ACT Inhalation Aerosol Solution INHALE 2 PUFFS EVERY 4 HOURS NEEDED * Quantity: 1 Refills: 6 Gladys M.D., Thaddeus * Start 22-Jul-2015 Active 6.7 GM Inhaler Indomethacin 50 MG Oral Capsule TAKE 1 CAPSULE 3 TIMES DAILY NEEDED. * Quantity: 90 Refills: 1 [place] M.D., Thaddeus * Start 28-Jul-2015 Active OxyCODONE HCl - 10 MG Oral Tablet take 1 po TID prn * Quantity: 80 Refills: 0 [place] M.D., Thaddeus * Start 28-Jul-2015 Active GuaiFENesin ER 600 MG Oral Tablet Extended Release 12 Hour TAKE 2 TABLETS EVERY 12 HOURS. * Quantity: 40 Refills: 0 [place] M.D., Thaddeus * Start 28-Jul-2015 Active Cefdinir 300 MG Oral Capsule TAKE 1 CAPSULE TWICE DAILY UNTIL GONE. * Quantity: 14 Refills: 0 [place] M.D., Thaddeus * Start 28-Jul-2015 Active LevoFLOXacin 750 MG Oral Tablet TAKE 1 TABLET DAILY. * Quantity: 20 Refills: 0 Gladys M.D., Thaddeus * Start 04-Aug-2015 Active Montelukast Sodium 10 MG Oral Tablet TAKE 1 TABLET AT BEDTIME. * Quantity: 30 Refills: 5 [place] M.D., Thaddeus * Start Active Nitrofurantoin Monohyd Macro 100 MG Oral Capsule TAKE 1 CAPSULE TWICE DAILY UNTIL GONE. * Quantity: 20 Refills: 0 [place] M.D., Thaddeus * Start Active Phenazopyridine HCl [...] Tonsillectomy Urinalysis, reflex to Micro and Culture ([facility]) 8016 Ordered: Oct-2015 Immunization Name [...] unknown Vital Signs Date Test Result Details 18-Oct-2015 11:02 BP Systolic 120 mm[Hg] Status: [...] 14:48 Urinalysis, reflex to Micro and Culture ([facility] ) 8016 pH 6.0 Range: 5.0-7.5 SP [...] 0-2 /HPF Range: 0-2 16:12 URINE CULTURE [id number] Comments: FlowPay performed at: [facility], [facility], [address] [place] [address], [phone], Disposal Worker: Nathan Baltazar D.O., [facility] Collection Date/Time: [id number] Results Received Date/Time: [id number] Reported Date/Time: FASTING:NOQuest performed at: [facility], [facility], [address] [place] [address], [phone], Disposal Worker: Nathan Baltazar D.O., [facility] Collection Date/Time: [id number] Results Received Date/Time: [id number] Reported Date/Time: FASTING:NO CULTURE, URINE, ROUTINE SEE NOTE (Abnormal) Comments: CULTURE, URINE, ROUTINE MICRO NUMBER: [id number] TEST STATUS: FINAL SPECIMEN SOURCE : URINE [...] to to confirm susceptibility to parenteral cefazolin.[KS]----- Plan of Care Name Dates Details Planned Observations Urinalysis, reflex to Micro and Culture ([facility]) 8016 On 2015 Intent Planned Goals not documented Interventions Provided Medication Changes* Sprintec 28 0.25-35 MG-MCG Oral Tablet - Start Instructions Name Dates [...]
--- OUTSIDE RECORDS SUMMARY | 2016-09-19 16:51 | XMS REPORT | Summary of Care ---
Author Author Thaddeus Graham M.D. Organization Unknown Address Unknown Phone Unavailable Care Team Providers Care Streaming Media Specialist Name Role Phone Thaddeus Graham M.D. Unavailable [...] Active Marijuana abuse (305.20, F12.10) Status: Active Medications Name Dates Details PROzac 20 MG Oral Capsule TAKE 1 CAPSULE DAILY. * Start 20-Jul-2015 Active Macopin Carbonate 300 MG Oral Capsule TAKE 1 CAPSULE 3 TIMES DAILY. * Refills: 0 * Start 20-Jul-2015 Active TraZODone HCl - 150 MG Oral Tablet TAKE 1 TABLET AT BEDTIME. * Quantity: 30 Refills: 3 [place] M.D., Thaddeus * Start 22-Jul-2015 Active Benzonatate 100 MG Oral Capsule TAKE 1 CAPSULE 3 TIMES DAILY NEEDED. * Quantity: 30 Refills: 2 [place] M.D., Thaddeus * Start 22-Jul-2015 Active GuaiFENesin ER 600 MG Oral Tablet Extended Release 12 Hour TAKE 2 TABLETS EVERY 12 HOURS. * Quantity: 40 Refills: 0 Gladys M.D., Thaddeus * Start 28-Jul-2015 Active Cefdinir 300 MG Oral Capsule TAKE 1 CAPSULE TWICE DAILY UNTIL GONE. * Quantity: 14 Refills: 0 [place] M.D., Thaddeus * Start 28-Jul-2015 Active LevoFLOXacin [...] UNTIL GONE. * Quantity: 20 Refills: 0 [place] M.D., Thaddeus * Start Active Phenazopyridine HCl - 200 MG Oral Tablet 1 PO TID X 2 days * Quantity: 6 Refills: 0 Gladys M.D., Thaddeus * Start Active Sprintec 28 0.25-35 MG-MCG Oral Tablet TAKE 1 TABLET DAILY DIRECTED. * Quantity: 1 Refills: 0 [place] M.D., Thaddeus * Start 18-Oct-2015 Active 28 Tablet Disp Pack Cefdinir 300 MG Oral Capsule TAKE 1 CAPSULE EVERY 12 HOURS UNTIL GONE. * Quantity: 20 Refills: 0 [place] M.D., Thaddeus * Start 04-Nov-2015 Active Ventolin [...] as needed * Quantity: 1 Refills: 2 [place] M.D., Thaddeus * Start 04-Jan-2016 Active 35 GM Tube Clindamycin HCl - 300 MG Oral Capsule take 1 po QID * Quantity: 60 Refills: 0 Gladys M.D., Thaddeus * Start 05-Jan-2016 Active Cefdinir 300 MG Oral Capsule TAKE 1 CAPSULE EVERY 12 HOURS UNTIL GONE. * Quantity: 20 Refills: 0 [place] M.D., Thaddeus * Start 13-Jan-2016 Active OLANZapine 10 MG Oral Tablet Dispersible TAKE 1 TABLET Daily at HS * Quantity: 30 Refills: 3 [place] M.D.MarcyThaddeus * Start 20-Jan-2016 Active Mupirocin 2 % External Ointment APPLY A SMALL AMOUNT 3 TIMES DAILY DIRECTED. * Quantity: 1 Refills: 2 [place] M.D., Thaddeus * Start 20-Jan-2016 Active 22 GM Tube PredniSONE 5 MG Oral Tablet Take 1 tablet daily * Quantity: 30 Refills: 3 [place] M.D., Thaddeus * Start 20-Jan-2016 Active Allergies and Adverse Reactions Name Dates [...] unknown Vital Signs Date Test Result Details 20-Jan-2016 09:57 Temperature 98.1 f Status: Comments: Method: Tympanic Heart Rate 83 /min Status: Comments: Location: ; Weight 213 lb Status: Physical Findings 98 Status: Comments: O2 Saturation Body Mass Index Calculated 38.96 kg/m2 Status: Body Surface Area Calculated 1.96 m2 Status: 10-Jan-2016 15:16 Temperature 97.9 f Status: Comments: Method: Tympanic Heart Rate 78 /min Status: Comments: Location: ; Weight 216 lb Status: Physical Findings 98 Status: Comments: O2 Saturation Body Mass Index Calculated 39.51 kg/m2 Status: Body Surface Area Calculated 1.98 m2 Status: 03-Jan-2016 09:06 Temperature 97.5 f Status: Comments: Method: Heart Rate 88 /min Status: Comments: Location: [...] Goals not documented Interventions Provided Medication Changes* Haloperidol 5 MG Oral Tablet - Stop * Mupirocin 2 % External Ointment - Start * OLANZapine 10 MG Oral Tablet Dispersible - Start * OxyCODONE HCl - 5 MG Oral Tablet - Stop * PredniSONE 5 MG Oral Tablet - Start * PredniSONE 50 MG Oral Tablet - Stop * TiZANidine HCl - 4 MG Oral Tablet - Stop Instructions Name Dates Details Instructions not documented Encounters Appointment; Thaddeus rGaham M.D. Encounter Diagnosis: Problem not documented On [...]
--- OUTSIDE RECORDS SUMMARY | 2016-09-19 16:52 | XMS REPORT | Summary of Care ---
Author Author Gladys Jamil, Thaddeus Organization Unknown Address Unknown Phone Unavailable Care Team Providers Care Custom Designer Name Role Phone Thaddeus Graham M.D. Unavailable [...] DAILY NEEDED. * Quantity: 30 Refills: 2 [place] M.D., Thaddeus * Start 22-Jul-2015 Active GuaiFENesin [...] AND WHEEZE. * Quantity: 1 Refills: 0 [place] M.D., Thaddeus * Start 04-Nov-2015 Active 8 GM Inhaler Celecoxib 200 MG Oral Capsule take 1 capsule daily * Quantity: 30 Refills: 0 [place] M.DThaddeus Heredia * Start 05-Dec-2015 Active ALPRAZolam XR 2 MG Oral Tablet Extended Release 24 Hour Take one tablet by mouth daily * Quantity: 30 Refills: 2 [place] M.D.Thaddeus * Start 06-May-2016 Active Lidocaine 5 % External Ointment Apply to painful area four times a day as needed * Quantity: 1 Refills: 2 Gladys M.D., Thaddeus * Start 04-Jan-2016 Active 35 GM Tube Clindamycin HCl - 300 MG Oral Capsule take 1 po QID * Quantity: 60 Refills: 0 [place] M.D.Thaddeus * Start 05-Jan-2016 Active Cefdinir 300 MG Oral Capsule TAKE 1 CAPSULE EVERY 12 HOURS UNTIL GONE. * Quantity: 20 Refills: 0 [place] M.D.Thaddeus * Start 13-Jan-2016 Active OLANZapine 10 MG Oral Tablet Disintegrating TAKE 1 TABLET Daily at HS * Quantity: 30 Refills: 3 Gladys M.D.Thaddeus * Start 20-Jan-2016 Active Mupirocin 2 % External Ointment APPLY A SMALL AMOUNT 3 TIMES DAILY DIRECTED. * Quantity: 1 Refills: 2 [place] M.D.Thaddeus * Start 20-Jan-2016 Active 22 GM Tube [place] Carbonate ER 450 MG Oral Tablet Extended Release TAKE 2 TABLETS AT BEDTIME. * Quantity: 60 Refills: 5 [place] M.D.Thaddeus * Start 02-Feb-2016 Active Acamprosate Calcium 333 MG Oral Tablet Delayed Release TAKE 1 TABLET 3 TIMES DAILY. * Quantity: 90 Refills: 0 [place] MYonatan Sierra * Start 09-Mar-2016 Active [place] ULtrafine 31 guage 3/8 inch pen needles * Quantity: 100 Refills: 11 [place] M.D.Thaddeus * Start 27-Mar-2016 Active Minocycline HCl - 100 MG Oral Capsule TAKE ONE CAPSULE BY MOUTH TWICE A DAY * Quantity: 60 Refills: 5 [place] M.D.Thaddeus * Start 27-Jun-2016 Active HydrOXYzine Pamoate 100 MG Oral Capsule 1 PO BID PRN anxiety attack * Quantity: 20 Refills: 2 Gladys M.D., Thaddeus * Start 27-Apr-2016 Active Lidocaine 5 % External Ointment Apply to painful area four times a day as needed * Quantity: 1 Refills: 2 [place] M.D., Thaddeus * Start 27-Apr-2016 Active 35 [...] TWICE DAILY. * Quantity: 60 Refills: 11 [place] M.D., Thaddeus * Start Active SUMAtriptan Succinate [...]
--- OUTSIDE RECORDS SUMMARY | 2016-09-19 16:52 | XMS REPORT | Continuity of Care Document ---
Author Author [facility] Address Unknown Phone Unavailable Care Team Providers Care Armored Cable Machine Operator Name Role Phone KAYY, GLORIA Villegas MD PCP Insurance Providers Payer Name Policy Number Subscriber Name Relationship Leah Kancare [employer] [id number] Mimi Bowens 18 Self / Same As Patient Advance Directives Directive Response Recorded Date/Time Advanced Directives No 03/13/16 7:26pm Chief Complaint and Reason for Visit Chief Complaint Pain Reason for Visit Concussion [id number] Alcohol abuse Problems Active Problems Medical Problem Onset Date [...] 40 Mg 40 Mg ORAL Daily 12/26/15 [place] Carbonate 450 Mg 2 Tab ORAL Bedtime 12/26/15 Trazodone Hcl 150 Mg 150 Mg ORAL Bedtime 01/14/16 Acetaminophen (Tylenol) 325 Mg 650 Mg ORAL Every 6 Hours as needed for Pain 0 01/15/16 Alprazolam 2 Mg 2 Mg ORAL Bedtime 30 01/15/16 Olanzapine 10 Mg 10 Mg ORAL Bedtime 03/13/16 Acamprosate Calcium 333 Mg 333 Mg ORAL Three Times A Day 03/13/16 Past Home Medications Medication Directions Ordered Status [...] 200 Mg Oral As Needed 03/07/15 Discontinued [place] Carbonate 150 Mg Cap, Unknown Dose Oral [...] Tablet, 1-2 Tab Every 4HRS 07/27/15 Discontinued [place] Carbonate 300 Mg Capsule, 1 Tab Three [...] Capsule, 50 Mg Oral Daily 10/12/15 Discontinued [place] Carbonate 450 Mg Tablet.er, 450 Mg Oral [...] discharge instructions. Plan of Care Discharge Date 03/13/16 9:47pm Disposition 01 HOME OR SELF-CARE Condition at Discharge Stable Instructions/Education Provided Concussion in Adults Cervical Muscle Strain (DC) Alcohol Abuse and Alcoholism (DC) Prescriptions See Medication Section Referrals GLORIA SULTANA MD - Additional Instructions/Education ED MARYANN if any worse. Neuro checks every 2 hours for the next 36 hours. ED MARAYNN if any abnormal check, or if any vomiting. Some of your test results may not [...] worrisome symptoms. * Emergency Department phone number: [phone], x [phone]* MEDICAL RECORD If you need copies of your X-rays, call [phone] x [phone]. If you need copies of [...] [employer] Emergency Room Services [facility] Physician Services [facility] X-rays [facility] Patients will receive bills for services from the appropriate provider. If you have any questions about your [facility] bill, our staff will be happy to assist you. Please call [phone], and ask for the billing department. THANK YOU for choosing [facility] as your emergency care provider! Care Plan and Goals ~~Discharge Care Plan~~ Problem: Head injury Goal: Decreased pain from head injury, return to prior level of alertness. Instructions: Do not leave patient alone for 24 hours, check the patient every 2 hours for alertness. Monitor patient for new symptoms, such as vomiting, unequal pupils, confusion or unusual behavior for the patient. Limit physical activity until cleared by regular physician. Take medication(s) as directed. Keep a log of times and amount of medication taken. Follow up with regular physician as directed. Functional Status No functional status [...] Vital Signs Vital Response Date/Time Temperature (Fahrenheit) 97.4 03/13/2016 9:46pm Pulse 86 bpm 03/13/2016 9:46pm Respirations 18 03/13/2016 9:46pm Height 5 ft 2 in Weight 200 lb Body Mass Index 36.0 kg/m^2 Results Laboratory Results Test Name Result Units Flags Reference Collection Date/Time Result Date/ Time Comments White Blood Count 13.75 10^3uL H 4.0-11.0 03/13/2016 8:20pm 03/13/2016 8 :31pm Red Blood Count 4.49 10^6uL 4.00-5.00 03/13/2016 8:20pm 03/13/2016 8: 31pm Hemoglobin 13.3 g/dL 12.0-15.5 03/13/2016 8:2003/13/2016 8:31pm Hematocrit 39.20 % 35.00-45.00 03/13/2016 8:20pm 03/13/2016 8:31pm Mean Corpuscular Volume 87 FL 80-100 03/13/2016 8:20pm 03/13/2016 8: 31pm Mean Corpuscular Hemoglobin 29.6 PG 26.0-34.0 03/13/2016 8:202015 8:31pm Mean Corpuscular Hemoglobin Concent 33.9 g/dL 31.0-37.0 03/13/2016 8: 2003/13/2016 8:31pm Red Cell Distribution Width 13.9 % 11.8-15.6 03/13/2016 8:202015 8:31pm Platelet Count 307 10^3uL 150-450 03/13/2016 8:2003/13/2016 8:31pm Mean Platelet Volume 9.1 FL 6.0-9.5 03/13/2016 8:2003/13/2016 8: 31pm Neutrophils (%) (Auto) 65 % 51-67 03/13/2016 8:03/13/2016 8:31pm Lymphocytes (%) (Auto) 29 % 20-46 03/13/2016 8:2003/13/2016 8:31pm Monocytes (%) (Auto) 5 % 3-11 03/13/2016 8:2003/13/2016 8:31pm Eosinophils (%) (Auto) 0 % 0-4 03/13/2016 8:03/13/2016 8:31pm Basophils (%) (Auto) 0 % 0-2 03/13/2016 8:20pm 03/13/2016 8:31pm Neutrophils # (Auto) 9.0 X10^3 03/13/2016 8:20pm 03/13/2016 8:31pm Lymphocytes # (Auto) 4.0 X10^3 03/13/2016 8:20pm 03/13/2016 8:31pm Monocytes # (Auto) 0.7 X10^3 03/13/2016 8:20pm 03/13/2016 8:31pm Eosinophils # (Auto) 0.0 10^3uL 03/13/2016 8:20pm 03/13/2016 8:31pm Basophils # (Auto) 0.0 10^3uL 03/13/2016 8:20pm 03/13/2016 8:31pm Volume Urine Centrifuged 12 mL 03/13/2016 8:20pm 03/13/2016 8:36pm Urine Collection Type CLEAN CATCH 03/13/2016 8:20pm 03/13/2016 8: 36pm Urine Color Yellow 03/13/2016 8:20pm 03/13/2016 8:31pm Urine Clarity Clear 03/13/2016 8:20pm 03/13/2016 8:31pm Urine pH 5.0 5.0 - 8.0 03/13/2016 8:20pm 03/13/2016 8:31pm Urine Specific [place] 1.015 1.005-1.030 03/13/2016 8:20pm 2015 8:31pm Urine Protein Negative Negative 03/13/2016 8:20pm 03/13/2016 8:31pm Urine Glucose (UA) Negative Negative 03/13/2016 8:20pm 03/13/2016 8: 31pm Urine RBC (Auto) Trace-intact H Negative 03/13/2016 8:20pm 03/13/2016 8:31pm Urine Ketones Negative Negative 03/13/2016 8:20pm 03/13/2016 8:31pm Urine Nitrite Negative Negative 03/13/2016 8:20pm 03/13/2016 8:31pm Urine Bilirubin Negative Negative 03/13/2016 8:20pm 03/13/2016 8: 31pm Urine Urobilinogen 0.2 mg/dL 0.2-1.0 03/13/2016 8:20pm 03/13/2016 8: 31pm Urine Leukocyte Esterase Trace H Negative 03/13/2016 8:20pm 2015 8:31pm Urine RBC 0-2 /HPF 03/13/2016 8:20pm 03/13/2016 8:36pm Urine WBC 0-2 /HPF 03/13/2016 8:20pm 03/13/2016 8:36pm Urine Bacteria Rare /HPF 03/13/2016 8:20pm 03/13/2016 8:36pm Urine Squamous Epithelial Cells 10-20 /LPF 03/13/2016 8:20pm 2015 8:36pm Sodium Level 147 mmol/L 135-150 03/13/2016 8:20pm 03/13/2016 8:56pm Potassium Level 3.7 mmol/L 3.5-5.1 03/13/2016 8:20pm 03/13/2016 8:56pm Chloride Level 110 mmol/L H 98-108 03/13/2016 8:20pm 03/13/2016 8:56pm Carbon Dioxide Level 26 mmol/L 22-29 03/13/2016 8:20pm 03/13/2016 8: 56pm Anion Gap 14.1 MEQ/L 3-15 03/13/2016 8:20pm 03/13/2016 8:56pm Blood Urea Nitrogen 12 mg/dL 7-18 03/13/2016 8:20pm 03/13/2016 8:56pm Creatinine 0.79 mg/dL 0.6-1.2 03/13/2016 8:20pm 03/13/2016 8:56pm BUN/Creatinine Ratio 15 10-20 03/13/2016 8:20pm 03/13/2016 8:56pm Estimat Glomerular Filtration Rate 107.3 03/13/2016 8:20pm 2015 8:56pm Estimated GFR (Non- 88.7 03/13/2016 8:20pm 2015 8:56pm Glucose Level 79 mg/dL 70-110 03/13/2016 8:20pm 03/13/2016 8:56pm Calculated Osmolality 282 mosm/L 280-300 03/13/2016 8:20pm 03/13/2016 8 :56pm Calcium Level 8.5 mg/dL L 8.8-10.8 03/13/2016 8:20pm 03/13/2016 8:56pm Calcium/Ionized Calcium Ratio 3.7 mg/dL L 3.8-4.6 03/13/2016 8:20pm 8:56pm Total Bilirubin 0.3 mg/dL 0.1-1.0 03/13/2016 8:20pm 03/13/2016 8:56pm Alkaline Phosphatase 158 U/L H 38-126 03/13/2016 8:20pm 03/13/2016 8: 56pm Aspartate Amino Transf (AST/SGOT) 34 U/L 15-37 03/13/2016 8:20pm 2015 8:56pm Alanine Aminotransferase (ALT/SGPT) 55 U/L 30-65 03/13/2016 8:20pm 8:56pm Total Protein 7.1 g/dL 6.4-8.5 03/13/2016 8:20pm 03/13/2016 8:56pm Albumin 4.0 g/dL 3.4-5.0 03/13/2016 8:20pm 03/13/2016 8:56pm Albumin/Globulin Ratio 1.290 1.1-1.8 03/13/2016 8:20pm 03/13/2016 8: 56pm C-Reactive Protein 2.30 mg/dL H 0.0-0.9 03/13/2016 8:20pm 03/13/2016 8: 56pm Serum Alcohol 167.0 mg/dL H 10-80 03/13/2016 8:20pm 03/13/2016 8:56pm Procedures No known history of procedures. Encounters Encounter Location Arrival/Admit Date Discharge/Depart Date Attending Provider Departed Emergency Room [facility] 03/13/16 7:24pm 03/13/16 9:47pm BAILEY MOREL MD Recent Diagnosis
--- OUTSIDE RECORDS SUMMARY | 2016-09-19 16:52 | XMS REPORT ---
Author Author Mimi Owens Organization [employer] Address Unknown Phone Unavailable Care Team Providers Care Replanting Machine Operator Name Role Phone Mimi Owens CP Unavailable Allergies, Adverse Reactions, Alerts Substance Reaction Event Type Penicillin G Benzathine Info Not Available Drug Allergy Erythromycin Info Not Available Drug Allergy Problems Problem Type Condition ICD-9 Code Onset Dates Condition Status Assessment Acute gingivitis, plaque induced 523.00 Active Problem Other acute otitis externa 380.22 Active Problem Acute suppurative otitis media without spontaneous rupture of eardrum 382.00 Active Problem Health examination of defined subpopulation V70.5 Active Assessment Other acute otitis externa 380.22 Active Assessment Acute suppurative otitis media without spontaneous rupture of eardrum 382.00 Active Problem Acute gingivitis, plaque induced 523.00 Active Assessment Health examination of defined subpopulation V70.5 Active Medications Medication Code System Code Instructions Start Date End Date Status Dosage Antipyrine-Benzocaine [facility] [address]-99 5.4-1.4 % Otic Three times a day Active 1 drop affected ear canal into affected ear Trazodone HCl [facility] [address]-61 150 MG Orally Once a day Active 1 tablet at bedtime Vistaril [facility] [address]-39 25 MG Orally TWICE DAILY Active 1 capsule Adderall [facility] [address]-06 20 MG Orally TWICE DAILY Active 1 tablet Cephalexin [facility] [address]-37 500 MG Orally 3 TIMES DAILY Active 1 tablet Lexapro [facility] [address]-63 20 MG Orally Once a day Active 1 TABLET Depakote [facility] [address]-50 500 MG Orally 3 TIMES DAILY Active 1 TABLET Procedures Procedure Coding System Code Date Office Visit, New Pt., Level 3 CPT-4 61996 June 24, 2013 Vital Signs Date/Time: June 24, 2013 Weight 193.8 lbs Height 61.8 inches Blood Pressure Diastolic 77 mm Hg Blood Pressure Systolic 113 mm Hg Temperature 97.3 F Cardiac Monitoring Heart Rate 97 Beats per Minute Results No Known Results Summary Purpose [employer] Submission
--- OUTSIDE RECORDS SUMMARY | 2016-09-19 16:53 | XMS REPORT ---
Author Author Mimi Owens Organization [employer] Address Unknown Phone Unavailable Care Team Providers Care Induction Heating Equipment Setter Name Role Phone Mimi Owens CP Unavailable Allergies No Known Allergies Problems Problem Type Condition ICD-9 Code Onset Dates Condition Status Problem Acute suppurative otitis media without spontaneous [...]
--- OUTSIDE RECORDS SUMMARY | 2016-09-19 16:53 | XMS REPORT | Continuity of Care Document ---
Author Author [facility] Address Unknown Phone Unavailable Care Team Providers Care Malted Milk Mixer Name Role Phone KAYY, GLORIA Villegas MD PCP Insurance Providers Payer Name Policy Number Subscriber Name Relationship Leah [employer] [id number] Giovana Bowens 19 Mother Advance Directives Directive Response Recorded Date/Time Advanced Directives No 07/28/15 12:39am Chief Complaint and Reason for Visit Chief Complaint Pain Reason for Visit Rib injury Problems Active Problems Medical Problem Onset Date [...] Gm Unknown Dose As Directed 6 07/27/15 [place] Carbonate 300 Mg 1 Tab Three Times [...] 200 Mg Oral As Needed 03/07/15 Discontinued [place] Carbonate 150 Mg Cap, Unknown Dose Oral [...] discharge instructions. Plan of Care Discharge Date 07/28/15 1:57am Disposition 01 HOME OR SELF-CARE Condition at Discharge Stable Prescriptions See Medication Section Referrals GLORIA SULTANA MD - Additional Instructions/Education Take ibuprofen as previously directed or 400 mg every 6 hours Stop the phenergan with codeine for now. Instead take Percocet 5/325 every 4 hours as needed for pain. Do not mix alcohol with the percocet. Follow up with Dr. Sultana this after to determine if the percocet will be adequate for your pain or if you will need a different pain medication or dose. He will give you a prescription for the pain medication he wants you to have. Return if symptoms worsen Some of your [...] worrisome symptoms. * Emergency Department phone number: [phone], x [phone]* MEDICAL RECORD If you need copies of your X-rays, call [phone] x [phone]. If you need copies of [...] services. SERVICE BILLING [facility] Emergency Room Services [facility] Physician Services [facility] X-rays [place] [facility] Patients will receive bills for services from the appropriate provider. If you have any questions about your [facility] bill, our staff will be happy to assist you. Please call [phone], and ask for the billing department. THANK YOU for choosing [facility] as your emergency care provider! Care Plan and Goals ~~Discharge Care Plan~~ Problem: RIB PAIN Goal: Instructions: Functional Status No functional status results. Allergies, Adverse Reactions, Alerts Allergen Type Severity Reaction Status Last Updated Iodine Allergy Unknown Active 07/28/15 Clindamycin Allergy Mild Active 07/28/15 Sulfamethoxazole Allergy Unknown Active 07/28/15 Trimethoprim Allergy Unknown Active 07/28/15 ERYTHROMYCIN Allergy Unknown Active 12/16/13 PENICILLIN Allergy Unknown Active 12/16/13 Immunizations No immunization records. Vital Signs Acute Vital Signs Vital Response Date/Time Temperature (Fahrenheit) 97.1 07/28/2015 12:39am Pulse 66 bpm 07/28/2015 1:57am Respirations 18 07/28/2015 1:57am Height 5 ft 1 in Weight 235 lb Body Mass Index 44.0 kg/m^2 Results Pending Laboratory Results Test Name Collection Date/Time Procedures No known history of procedures. Encounters Encounter Location Arrival/Admit Date Discharge/Depart Date Attending Provider Departed Emergency Room [facility] 07/28/15 12:38am 07/28/15 1:57am EFREN PARRA MD Departed Emergency Room [facility] 07/27/15 1:03pm 07/27/15 3:04pm RIZWAN GARAY DO Recent Diagnosis
--- OUTSIDE RECORDS SUMMARY | 2016-09-19 16:53 | XMS REPORT | Summary of Care ---
Author Author Thaddeus Graham M.D. Organization Unknown Address Unknown Phone Unavailable Care Team Providers Care Flight Operations Manager Name Role Phone Thaddeus Graham M.D. [...] 1 CAPSULE DAILY. * Start 20-Jul-2015 Active [place] Carbonate 300 MG Oral Capsule TAKE 1 [...] TID PRN * Quantity: 30 Refills: 0 Healdton M.D., Thaddeus * Start 28-Jul-2015 Active GuaiFENesin ER 600 MG Oral Tablet Extended Release 12 Hour TAKE 2 TABLETS EVERY 12 HOURS. * Quantity: 40 Refills: 0 He[place] M.D., Thaddeus * Start 28-Jul-2015 Active Cefdinir 300 MG Oral Capsule TAKE 1 CAPSULE TWICE DAILY UNTIL GONE. * Quantity: 14 Refills: 0 Heald[place] M.D., Thaddeus * Start 28-Jul-2015 Active LevoFLOXacin 750 MG Oral Tablet TAKE 1 TABLET DAILY. * Quantity: 20 Refills: 0 Healdton M.D., Thaddeus * Start 04-Aug-2015 Active Montelukast Sodium 10 MG Oral Tablet TAKE 1 TABLET AT BEDTIME. * Quantity: 30 Refills: 5 Healdton M.D., Thaddeus * Start Active Nitrofurantoin Monohyd Macro 100 MG Oral Capsule TAKE 1 CAPSULE TWICE DAILY UNTIL GONE. * Quantity: 20 Refills: 0 Healdton M.D., Thaddeus * Start Active Phenazopyridine HCl - 200 MG Oral Tablet 1 PO TID X 2 days * Quantity: 6 Refills: 0 Gladys M.D., Thaddeus * Start Active Sprintec 28 0.25-35 MG-MCG Oral Tablet TAKE 1 TABLET DAILY DIRECTED. * Quantity: 1 Refills: 0 Healdton M.D., Thaddeus * Start 18-Oct-2015 Active 28 Tablet Disp Pack PredniSONE 50 MG Oral Tablet take 1 daily for 5 days * Quantity: 5 Refills: 0 Healdton M.D., Thaddeus * Start 04-Nov-2015 Active Cefdinir 300 MG Oral Capsule TAKE 1 CAPSULE EVERY 12 HOURS UNTIL GONE. * Quantity: 20 Refills: 0 Healdton M.D., Thaddeus * Start 04-Nov-2015 Active Ventolin HFA 108 (90 Base) MCG/ACT Inhalation Aerosol Solution INHALE 2 PUFFS EVERY 4 HOURS NEEDED FOR COUGH AND WHEEZE. * Quantity: 1 Refills: 0 Healdton M.D., Thaddeus * Start 04-Nov-2015 Active 8 GM Inhaler TiZANidine HCl - 4 MG Oral Tablet TAKE 1 TABLET 3 TIMES DAILY NEEDED. * Quantity: 30 Refills: 0 Healdton M.D., Thaddeus * Start 02-Dec-2015 Active TraMADol HCl - 50 MG Oral Tablet TAKE 1 TO 2 TABLETS 4 TIMES DAILY NEEDED FOR PAIN. * Quantity: 60 Refills: 1 Healdton M.D., Thaddeus * Start 02-Dec-2015 Active Salsalate 750 MG Oral Tablet TAKE 1 TABLET 3 times daily * Quantity: 90 Refills: 6 Healdton M.D., Thaddeus * Start 05-Dec-2015 Active Celecoxib [...] On 10-Jan-2016 10:45 Interventions Provided Medication Changes* ALPRAZolam XR 2 MG Oral Tablet Extended Release 24 Hour - Start * OxyCODONE HCl - 5 MG Oral Tablet - Renew with Changes Instructions Name Dates [...]
--- OUTSIDE RECORDS SUMMARY | 2016-09-19 16:53 | XMS REPORT ---
Author YAMILA Root Organization [employer] Address Unknown Phone Unavailable Care Team Providers Care Test Development Engineer Name Role Phone YAMILA WATSON CP Unavailable Allergies, Adverse Reactions, Alerts Substance Reaction Event Type Penicillin V Potassium Info Not Available Drug Allergy Iodine Info Not Available Drug Allergy Azithromycin Info Not Available Drug Allergy Problems Problem Type Condition ICD-9 Code Onset Dates Condition Status Problem Acute sinusitis, unspecified 461.9 Active Problem Absence of menstruation 626.0 Active Problem Cough 786.2 Active Assessment Cellulitis 682.9 Active Problem Acute upper respiratory infections of [...] Instructions Start Date End Date Status Dosage [place] Carbonate [facility] [address]-34 300 mg Feb 22, 2014 take 1 capsule by Oral route 3 times per day Ibuprofen [facility] [address]-29 200 mg Feb 22, 2014 take 2 capsules ( 400 mg) by oral route every 4 hours as needed Clindamycin HCl [facility] [address]-29 300 MG Orally every 6 hrs 1 capsule Zoloft NDC 0 Oral not defined Procedures Procedure Coding System Code Date Office Visit, Est Pt., Level 2 CPT-4 50884 Nov 25, 2014 Vital Signs Date/Time: Nov 25, 2014 Temperature 97.6 F Weight 222.6 lbs Height 62 in BMI 40.71 Index Blood Pressure Diastolic 82 mmHg Blood Pressure Systolic 130 mmHg Cardiac Monitoring Heart Rate 88 bpm Results No Known Results Summary Purpose [employer] Submission
--- OUTSIDE RECORDS SUMMARY | 2016-09-19 16:53 | XMS REPORT | Summary of Care ---
Author Author Alisa Cloud Organization Unknown Address [address] [place] [address] Phone Unavailable Care Team Providers Care Supervisor Receiving And Processing Name Role Phone Alisa Cloud Unavailable Unavailable Avril Jama PP Unavailable Unavailable [...] Refills: 0 Alisa Cloud * Started 20-Jul-2015 [id number] ML Bottle Allergies and Adverse Reactions Name Dates Details Bactrim Status: Active Erythromycin Derivatives Status: Active Penicillins Status: Active Procedures Procedure Dates Details Procedures not documented Immunization Name Dates Details [...]
--- OUTSIDE RECORDS SUMMARY | 2016-09-19 16:54 | XMS REPORT | Summary of Care ---
Author Author Thaddeus Graham M.D. Organization Unknown Address [address] [place], [place] [id number] Phone Unavailable Care Team Providers Care Rat Breeder Name Role Phone Pedro Luis Alisa Unavailable Unavailable Thaddeus Graham M.D. Unavailable Unavailable Avril Jaam PP Unavailable Unavailable Unavailable Functional Status Functional [...] Refills: 0 Keylakeshia Alisa * Started 20-Jul-2015 [id number] ML Bottle TraZODone HCl - 150 MG [...] Refills: 3 Thaddeus Graham M.D.* Started 22-Jul-2015 [id number] ML Bottle Proventil HFA 108 (90 Base) [...] Viral RNA, Quantitative, RT- PCR w/Reflex to [id number] Comments: [facility] performed at: [facility], [place], [address] [place] [address], [phone], Edger Machine Operator: Jose Shay MDQuest Collection Date/Time: [id number] Results Received Date/Time: [id number] Reported Date/Time: [id number] FASTING:NO HCV RNA, QUANTITATIVE REAL TIME PCR [id number] IU/mL (Above high threshold) Comments: [[facility]C]----- HCV RNA, QUANTITATIVE REAL TIME PCR 6.64 LogIU/mL (Above high threshold) Comments: REFERENCE RANGE: HCV RNA, PCR, QUANT: <15 IU/mL HCV RNA, PCR, QUANT: <1.18 LogIU/mLThis test was performed using the RUSLAN(R) AmpliPrep/RUSLAN(R)TaqMan(R) HCV Test, v2.0.The performance characteristics of this assay have beendetermined by [facility]. Performance characteristicsrefer to the analytical performance of the test.For additional information, please refer tohttp://education.SellMyJersey.com/faq /[email or web address](This link is being provided for informational/educational purposesonly. )[TXC]----- Plan of Care Planned Observations* Name Dates Details Planned Goals not documented Goal Instructions * Instructions not documented Encounters Appointment; Thaddeus Graham Encounter Diagnosis: Problem not documented On 28-Jul-2015 14:45 Appointment; Thaddeus Graham Encounter Diagnosis: Problem not documented On 22-Jul-2015 13:45 Appointment; Alisa Cloud Encounter Diagnosis: Problem not documented On 20-Jul-2015 08:30
--- OUTSIDE RECORDS SUMMARY | 2016-09-19 16:54 | XMS REPORT | Summary of Care ---
Author Author Thaddeus Graham M.D. Organization Unknown Address Unknown Phone Unavailable Care Team Providers Care Entrepreneurship Program Director Name Role Phone Thaddeus Graham M.D. [...] 1 CAPSULE DAILY. * Start 20-Jul-2015 Active [place] Carbonate 300 MG Oral Capsule TAKE 1 [...] HOURS NEEDED * Quantity: 1 Refills: 6 [place] M.D., Thaddeus * Start 22-Jul-2015 Active 6.7 [...] 12 HOURS. * Quantity: 40 Refills: 0 [place] M.D., Thaddeus * Start 28-Jul-2015 Active Cefdinir 300 MG Oral Capsule TAKE 1 CAPSULE TWICE DAILY UNTIL GONE. * Quantity: 14 Refills: 0 [place] M.D., Thaddeus * Start 28-Jul-2015 Active LevoFLOXacin 750 MG Oral Tablet TAKE 1 TABLET DAILY. * Quantity: 20 Refills: 0 Gladys M.D., Thaddeus * Start 04-Aug-2015 Active Montelukast Sodium 10 MG Oral Tablet TAKE 1 TABLET AT BEDTIME. * Quantity: 30 Refills: 5 [place] M.D., Thaddeus * Start Active Nitrofurantoin Monohyd [...] Goals not documented Interventions Provided Medication Changes* Nitrofurantoin Monohyd Macro [...]
--- OUTSIDE RECORDS SUMMARY | 2016-09-19 16:54 | XMS REPORT ---
Author Author Mimi Owens Organization [employer] Address Unknown Phone Unavailable Care Team Providers Care Conveyor Technician Name Role Phone Mimi Owens CP Unavailable Allergies, Adverse Reactions, Alerts Substance Reaction Event Type Penicillin G Benzathine Info Not Available Drug Allergy Erythromycin Info Not Available Drug Allergy Problems Problem Type Condition ICD-9 Code Onset Dates Condition Status Problem Other acute otitis externa 380.22 Active Problem elevated liver enzymes 794.8 Active Problem Health examination of defined subpopulation V70.5 Active Problem Pain in joint, multiple sites 719.49 Active Problem Unspecified viral hepatitis C without hepatic coma 070.70 Active Problem Lumbago 724.2 Active Problem Nondependent tobacco use disorder 305.1 Active Problem Fatigue 780.79 Active Problem Acute serous otitis media 381.01 Active Problem Amphetamine and other psychostimulant dependence, 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 Assessment Unspecified viral hepatitis C without hepatic coma 070.70 Active Problem Acute gingivitis, plaque induced 523.00 Active Problem Acute suppurative otitis media without spontaneous rupture of eardrum 382.00 Active Medications Medication Code System Code Instructions Start Date End Date Status Dosage Ibuprofen [facility] [address]-42 600 MG Orally Every 8 hours as needed for pain July 24, 2013 August 03, 2013 Active 1 tablet Depakote [facility] [address]-92 500 MG Orally 3 TIMES DAILY Active 1 TABLET Antipyrine-Benzocaine [facility] [address]-90 5.4-1.4 % Otic Three times a day Active 1 drop affected ear canal into affected ear Vistaril [facility] [address]-85 25 MG Orally TWICE DAILY Active 1 capsule Adderall [facility] [address]-54 20 MG Orally TWICE DAILY Active 1 tablet Lexapro [facility] [address]-22 20 MG Orally Once a day Active 1 TABLET Cephalexin [facility] [address]-95 500 MG Orally 3 TIMES DAILY Active 1 tablet Trazodone HCl [facility] [address]-45 150 MG Orally Once a day Active 1 tablet at bedtime Procedures Procedure Coding System Code Date Office Visit, Est Pt., Level 3 CPT-4 75051 July 27, 2013 Vital Signs Date/Time: July 27, 2013 Weight 195.0 lbs Height 61.8 in Blood Pressure Diastolic 81 mm Hg Blood Pressure Systolic 125 mm Hg Temperature 97.7 F Cardiac Monitoring Heart Rate 84 /min Results No Known Results Summary Purpose e[employer]Works Submission
--- OUTSIDE RECORDS SUMMARY | 2016-09-19 16:54 | XMS REPORT | Summary of Care ---
Author Author Thaddeus Graham M.D. Organization Unknown Address [address] [place], [place] [id number] Phone Unavailable Care Team Providers Care Utility Teller Name Role Phone Pedro Luis Alisa Unavailable [...] Status: Active Costochondritis (733.6, M94.0) Status: Active Cough (786.2, R05) Status: Active Hepatitis C (070.70, B19.20) Status: Active Medications Name Dates Details PROzac 20 MG Oral Capsule TAKE 1 CAPSULE DAILY. * Started 20-Jul-2015 ActiveLithium Carbonate 300 MG Oral Capsule TAKE 1 CAPSULE 3 TIMES DAILY. * Refills: 0 * Started 20-Jul-2015 ActivePromethazine-Codeine 6.25-10 MG/5ML Oral Syrup Take 5 - 7.5 ml at bedtime for cough * Quantity: 1 Refills: 0 Alisa Cloud * Started 20-Jul-2015 [id number] ML Bottle TraZODone HCl - 150 MG [...] Refills: 3 Thaddeus Graham M.D.* Started 22-Jul-2015 [id number] ML Bottle Proventil HFA 108 (90 Base) [...] Viral RNA, Quantitative, RT- PCR w/Reflex to [id number] Comments: [facility] performed at: [facility], [place], [employer], [address] [place] [address], [phone], Baggagemaster: Garcia J Batterman MDQuest Collection Date/Time: [id number] Results Received Date/Time: [id number] Reported Date/Time: [id number] FASTING:NO HCV RNA, QUANTITATIVE REAL TIME PCR [id number] IU/mL (Above high threshold) Comments: [[facility] [place]]----- HCV RNA, QUANTITATIVE REAL TIME PCR 6.64 LogIU/mL (Above high threshold) Comments: REFERENCE RANGE: HCV RNA, PCR, QUANT: <15 IU/mL HCV RNA, PCR, QUANT: <1.18 LogIU/mLThis test was performed using the RUSLAN(R) AmpliPrep/RUSLAN(R)TaqMan(R) HCV Test, v2.0.The performance characteristics of this assay have beendetermined by [facility]. Performance characteristicsrefer to the analytical performance of the test.For additional information, please refer tohttp://Zadego.DealsAndYou/faq /[email or web address](This link is being provided for informational/educational purposesonly. )[[facility] [place]]----- 29-Jul-2015 10:19 Hepatitis C Viral RNA, Genotype, LIPA [id number] Comments : [facility] performed at: [facility] [place], [employer] [employer] [facility] [address] [place] [address], [phone], Baggagemaster: Jose Howard Collection Date/Time: [id number] Results Received Date/Time: [id number] Reported Date/Time: [id number] FASTING:NO HCV GENOTYPE, LIPA GENOTYPE 1a (Better) Comments: REFERENCE RANGE: NOT DETECTEDThe method used in this test is RT-PCR and reversehybridization (Line Probe) of the 5' UTR and coreregion of the HCV genome.This test was developed and its analytical performancecharacteristics have been determined by [facility].It has not been cleared or approved by the U.S. Food andDrug Administration. The FDA has determined that suchclearance or approval is not necessary. This assay hasbeen validated pursuant to the CLIA regulations and isused for clinical purposes.http://education.DealsAndYou /faq/ HCVGenotyping[TXC]----- Plan of Care Planned Observations* Name Dates Details Planned Goals not documented Goal Instructions * Instructions not documented Encounters Appointment; Thaddeus Graham Encounter Diagnosis: Problem not documented On 28-Jul-2015 14:45 Appointment; Thaddeus Graham Encounter Diagnosis: Problem not documented On 22-Jul-2015 13:45 Appointment; Alisa Cloud Encounter Diagnosis: Problem not documented On 20-Jul-2015 08:30
--- OUTSIDE RECORDS SUMMARY | 2016-09-19 16:55 | XMS REPORT | Summary of Care ---
Author Author Thaddeus Graham M.D. Organization Unknown Address [address] [place], [place] [id number] Phone Unavailable Care Team Providers Care Sample Sewer Name Role Phone Pedro Luis Alisa Unavailable [...] Refills: 0 Keylakeshia Alisa * Started 20-Jul-2015 [id number] ML Bottle TraZODone HCl - 150 MG [...] Refills: 3 Thaddeus Graham M.D.* Started 22-Jul-2015 [id number] ML Bottle Proventil HFA 108 (90 Base) [...] Viral RNA, Quantitative, RT- PCR w/Reflex to [id number] Comments: [facility] performed at: [facility], [facility], [address] [place] [address], [phone], Retail Warehouse Supervisor: Jose Shay MDQuest Collection Date/Time: [id number] Results Received Date/Time: [id number] Reported Date/Time: [id number] FASTING:NO HCV RNA, QUANTITATIVE REAL TIME PCR [id number] IU/mL (Above high threshold) Comments: [[facility]]----- HCV RNA, QUANTITATIVE REAL TIME PCR 6.64 LogIU/mL (Above high threshold) Comments: REFERENCE RANGE: HCV RNA, PCR, QUANT: <15 IU/mL HCV RNA, PCR, QUANT: <1.18 LogIU/mLThis test was performed using the RUSLAN(R) AmpliPrep/RUSLAN(R)TaqMan(R) HCV Test, v2.0.The performance characteristics of this assay have beendetermined by [facility]. Performance characteristicsrefer to the analytical performance of the test.For additional information, please refer tohttp://[email or web address].Veset/faq /[email or web address](This link is being provided for informational/educational purposesonly. )[[facility]]----- 29-Jul-2015 10:19 Hepatitis C Viral RNA, Genotype, LIPA [id number] Comments : [facility] performed at: [facility], [employer] [employer] [facility], [address] [place] [address], [phone], Retail Warehouse Supervisor: Jose Shay MDQuest Collection Date/Time: [id number] Results Received Date/Time: [id number] Reported Date/Time: [id number] FASTING:NO HCV GENOTYPE, LIPA GENOTYPE 1a (Better) Comments: REFERENCE RANGE: NOT DETECTEDThe method used in this test is RT-PCR and reversehybridization (Line Probe) of the 5' UTR and coreregion of the HCV genome.This test was developed and its analytical performancecharacteristics have been determined by [facility].It has not been cleared or approved by the U.S. Food andDrug Administration. The FDA has determined that suchclearance or approval is not necessary. This assay hasbeen validated pursuant to the CLIA regulations and isused for clinical purposes.http://education.Veset /faq/ HCVGenotyping[[facility]]----- Plan of Care Planned Observations* Name Dates Details Planned Goals not documented Goal Instructions * Instructions not documented Encounters Appointment; Thaddeus Graham Encounter Diagnosis: Problem not documented On 28-Jul-2015 14:45 Appointment; Thaddeus Graham Encounter Diagnosis: Problem not documented On 22-Jul-2015 13:45 Appointment; Alisa Cloud Encounter Diagnosis: Problem not documented On 20-Jul-2015 08:30
--- OUTSIDE RECORDS SUMMARY | 2016-09-19 16:55 | XMS REPORT | Summary of Care ---
Author Author Thaddeus Graham M.D. Organization Unknown Address Unknown Phone Unavailable Care Team Providers Care Mold Shifter Name Role Phone Thaddeus Graham M.D. Unavailable [...] Active Skin ulcer (707.9, L98.499) Status: Active Medications Name Dates Details PROzac 20 MG Oral Capsule TAKE 1 CAPSULE DAILY. * Start 20-Jul-2015 Active [place] Carbonate 300 MG Oral Capsule TAKE 1 CAPSULE 3 TIMES DAILY. * Refills: 0 * Start 20-Jul-2015 Active TraZODone HCl - 150 MG Oral Tablet TAKE 1 TABLET AT BEDTIME. * Quantity: 30 Refills: 3 Wetzel M.D., Thaddeus * Start 22-Jul-2015 Active Benzonatate 100 MG Oral Capsule TAKE 1 CAPSULE 3 TIMES DAILY NEEDED. * Quantity: 30 Refills: 2 Wetzel M.D., Thaddeus * Start 22-Jul-2015 Active GuaiFENesin ER 600 MG Oral Tablet Extended Release 12 Hour TAKE 2 TABLETS EVERY 12 HOURS. * Quantity: 40 Refills: 0 Wetzel M.D., Thaddeus * Start 28-Jul-2015 Active Cefdinir 300 MG Oral Capsule TAKE 1 CAPSULE TWICE DAILY UNTIL GONE. * Quantity: 14 Refills: 0 Wetzel M.D., Thaddeus * Start 28-Jul-2015 Active LevoFLOXacin 750 MG Oral Tablet TAKE 1 TABLET DAILY. * Quantity: 20 Refills: 0 Wetzel M.D., Thaddeus * Start 04-Aug-2015 Active Montelukast Sodium 10 MG Oral Tablet TAKE 1 TABLET AT BEDTIME. * Quantity: 30 Refills: 5 Wetzel M.D., Thaddeus * Start Active Nitrofurantoin Monohyd Macro 100 MG Oral Capsule TAKE 1 CAPSULE TWICE DAILY UNTIL GONE. * Quantity: 20 Refills: 0 Wetzel M.D., Thaddeus * Start Active Phenazopyridine HCl - 200 MG Oral Tablet 1 PO TID X 2 days * Quantity: 6 Refills: 0 Wetzel M.D., Thaddeus * Start Active Sprintec 28 [...] AND WHEEZE. * Quantity: 1 Refills: 0 Wetzel M.D., Thaddeus * Start 04-Nov-2015 Active 8 GM Inhaler Celecoxib 200 MG Oral Capsule take 1 capsule daily * Quantity: 30 Refills: 0 Gladys M.D., Thaddeus * Start 05-Dec-2015 Active ALPRAZolam XR 2 MG Oral Tablet Extended Release 24 Hour TAKE 1 TABLET DAILY. * Quantity: 30 Refills: 0 Wetzel M.D., Thaddeus * Start 03-Jan-2016 Active Lidocaine 5 % External Ointment Apply to painful area four times a day as needed * Quantity: 1 Refills: 2 Wetzel M.D., Thaddeus * Start 04-Jan-2016 Active 35 GM Tube Clindamycin HCl - 300 MG Oral Capsule take 1 po QID * Quantity: 60 Refills: 0 Wetzel M.D., Thaddeus * Start 05-Jan-2016 Active Cefdinir 300 MG Oral Capsule TAKE 1 CAPSULE EVERY 12 HOURS UNTIL GONE. * Quantity: 20 Refills: 0 Gladys M.D., Thaddeus * Start 13-Jan-2016 Active OLANZapine 10 MG Oral Tablet Dispersible TAKE 1 TABLET Daily at HS * Quantity: 30 Refills: 3 Wetzel M.D., Thaddeus * Start 20-Jan-2016 Active Mupirocin 2 % External Ointment APPLY A SMALL AMOUNT 3 TIMES DAILY DIRECTED. * Quantity: 1 Refills: 2 Wetzel M.D., Thaddeus * Start 20-Jan-2016 Active 22 GM Tube PredniSONE 5 MG Oral Tablet Take 1 tablet daily * Quantity: 30 Refills: 3 Wetzel M.D., Thaddeus * Start 20-Jan-2016 Active Allergies [...]
--- OUTSIDE RECORDS SUMMARY | 2016-09-19 16:56 | XMS REPORT | Summary of Care ---
Author Author Thaddeus Graham M.D. Organization Unknown Address Unknown Phone Unavailable Care Team Providers Care Kelp Gatherer Name Role Phone Thaddeus Graham M.D. Unavailable [...] 1 CAPSULE DAILY. * Start 20-Jul-2015 Active [place] Carbonate 300 MG Oral Capsule TAKE 1 CAPSULE 3 TIMES DAILY. * Refills: 0 * Start 20-Jul-2015 Active TraZODone HCl - 150 MG Oral Tablet TAKE 1 TABLET AT BEDTIME. * Refills: 0 * Start 22-Jul-2015 Active Benzonatate 100 MG Oral Capsule TAKE 1 CAPSULE 3 TIMES DAILY NEEDED. * Quantity: 30 Refills: 2 [place] M.D., Thaddeus * Start 22-Jul-2015 Active Indomethacin 50 MG Oral Capsule TAKE 1 CAPSULE 3 TIMES DAILY NEEDED. * Quantity: 90 Refills: 1 [place] M.D., Thaddeus * Start 28-Jul-2015 Active OxyCODONE HCl - 5 MG Oral Tablet TAKE 1 TABLET EVERY 4 HOURS NEEDED FOR PAIN. * Quantity: 50 Refills: 0 [place] M.D., Thaddeus * Start 28-Jul-2015 Active GuaiFENesin ER 600 MG Oral Tablet Extended Release 12 Hour TAKE 2 TABLETS EVERY 12 HOURS. * Quantity: 40 Refills: 0 Gladys M.D., Thaddeus * Start 28-Jul-2015 Active Cefdinir 300 MG Oral Capsule TAKE 1 CAPSULE TWICE DAILY UNTIL GONE. * Quantity: 14 Refills: 0 [place] M.D., Thaddeus * Start 28-Jul-2015 Active LevoFLOXacin 750 MG Oral Tablet TAKE 1 TABLET DAILY. * Quantity: 20 Refills: 0 [place] M.D., Thaddeus * Start 04-Aug-2015 Active Montelukast Sodium 10 MG Oral Tablet TAKE 1 TABLET AT BEDTIME. * Quantity: 30 Refills: 5 [place] M.D., Thaddeus * Start Active Nitrofurantoin Monohyd Macro 100 MG Oral Capsule TAKE 1 CAPSULE TWICE DAILY UNTIL GONE. * Quantity: 20 Refills: 0 [place] M.D., Thaddeus * Start Active Phenazopyridine HCl - 200 MG Oral Tablet 1 PO TID X 2 days * Quantity: 6 Refills: 0 [place] M.D., Thaddeus * Start Active Sprintec 28 0.25-35 MG-MCG Oral Tablet TAKE 1 TABLET DAILY DIRECTED. * Quantity: 1 Refills: 0 [place] M.D., Thaddeus * Start 18-Oct-2015 Active 28 [...] Tonsillectomy Urinalysis, reflex to Micro and Culture ([facility]) 8016 Ordered: Oct-2015 Immunization Name Dates [...] BP Systolic 118 mm[Hg] Status: Comments: Location: [facility]; Position: Sitting BP Diastolic 62 mm[Hg] Status: Comments: Location: [facility]; Position: Sitting Temperature 98.2 f Status: Comments: Method: Tympanic Heart Rate 77 /min Status: Comments: Location: ; Physical Findings 98 Status: Comments: O2 Saturation Results Date Description Value Details 14:48 Urinalysis, reflex to Micro and Culture ([facility] ) 8016 pH 6.0 Range: 5.0-7.5 SP [...] 0-2 /HPF Range: 0-2 16:12 URINE CULTURE [id number] Comments: [facility] performed at: [facility], [address] [place], [address], Export Sales Manager: Nathan Baltazar D.O., MPHQuest Collection Date/Time: [id number] Results Received Date/Time: [id number] Reported Date/Time: [id number] FASTING:NO[facility] performed at: [facility], [address] [place], [address], Export Sales Manager: Nathan Baltazar D.O., MPHQuest Collection Date/Time: [id number] Results Received Date/Time: [id number] Reported Date/Time: [id number] FASTING:NO CULTURE, URINE, ROUTINE SEE NOTE (Abnormal) Comments: CULTURE, URINE, ROUTINE MICRO NUMBER: [id number] TEST STATUS: FINAL SPECIMEN SOURCE : URINE [...] Goals not documented Interventions Provided Medication Changes* Ventolin HFA 108 (90 Base) MCG/ACT Inhalation Aerosol Solution - Start Instructions Name Dates Details Instructions [...]
--- OUTSIDE RECORDS SUMMARY | 2016-09-19 16:56 | XMS REPORT | Summary of Care ---
Author Author Thaddeus Graham M.D. Organization Unknown Address [address], [place] [id number] Phone Unavailable Care Team Providers Care Altitude Chamber Technician Name Role Phone Thaddeus Graham M.D. [...] Viral RNA, Quantitative, RT- PCR w/Reflex to [id number] Comments: [facility] performed at: [facility], [facility], [address] [place] [address], [address], Cv Rn: Jose Shay MDQuest Collection Date/Time: [id number] Results Received Date/Time: [id number] Reported Date/Time: FASTING:NO HCV RNA, QUANTITATIVE REAL TIME PCR [id number] IU/mL (Above high threshold) Comments: [[facility]]----- HCV RNA, QUANTITATIVE REAL TIME PCR 6.64 LogIU/mL (Above high threshold) Comments: REFERENCE RANGE: HCV RNA, PCR, QUANT: <15 IU/mL HCV RNA, PCR, QUANT: <1.18 LogIU/mLThis test was performed using the RUSLAN(R) AmpliPrep/RUSLAN(R)TaqMan(R) HCV Test, v2.0.The performance characteristics of this assay have beendetermined by [facility]. Performance characteristicsrefer to the analytical performance of the test.For additional information, please refer tohttp://[employer]/faq /[email or web address](This link is being provided for informational/educational purposesonly. )[[facility]]----- 29-Jul-2015 10:19 Hepatitis C Viral RNA, Genotype, LIPA [id number] Comments : [facility] performed at: [facility], [employer] [facility]- [address], [address], Cv Rn: Jose Shay MDQuest Collection Date/Time: [id number] Results Received Date/Time: [id number] Reported Date/Time: [id number] FASTING:NO HCV GENOTYPE, LIPA GENOTYPE 1a (Better) Comments: REFERENCE RANGE: NOT DETECTEDThe method used in this test is RT-PCR and reversehybridization (Line Probe) of the 5' UTR and coreregion of the HCV genome.This test was developed and its analytical performancecharacteristics have been determined by [facility].It has not been cleared or approved by the U.S. Food andDrug Administration. The FDA has determined that suchclearance or approval is not necessary. This assay hasbeen validated pursuant to the CLIA regulations and isused for clinical purposes.http://education.[employer] /faq/ HCVGenotyping[[facility]]----- Plan of Care Planned Observations* [...]
--- OUTSIDE RECORDS SUMMARY | 2016-09-19 16:56 | XMS REPORT | Summary of Care ---
Author Author Thaddeus Graham M.D. Organization Unknown Address Unknown Phone Unavailable Care Team Providers Care Nurses Aide Name Role Phone Thaddeus Graham M.D. Unavailable [...] 1 CAPSULE DAILY. * Start 20-Jul-2015 Active [place] Carbonate 300 MG Oral Capsule TAKE 1 [...] DAILY NEEDED. * Quantity: 90 Refills: 1 [place] M.D., Thaddeus * Start 28-Jul-2015 Active OxyCODONE HCl - 5 MG Oral Tablet TAKE 1 TABLET EVERY 4 HOURS NEEDED FOR PAIN. * Quantity: 50 Refills: 0 [place] M.D., Thaddeus * Start 28-Jul-2015 Active GuaiFENesin ER 600 MG Oral Tablet Extended Release 12 Hour TAKE 2 TABLETS EVERY 12 HOURS. * Quantity: 40 Refills: 0 Gladys M.D., Thaddeus * Start 28-Jul-2015 Active Cefdinir 300 MG Oral Capsule TAKE 1 CAPSULE TWICE DAILY UNTIL GONE. * Quantity: 14 Refills: 0 [place] M.D., Thaddeus * Start 28-Jul-2015 Active LevoFLOXacin 750 MG Oral Tablet TAKE 1 TABLET DAILY. * Quantity: 20 Refills: 0 [place] M.D., Thaddeus * Start 04-Aug-2015 Active Montelukast Sodium 10 MG Oral Tablet TAKE 1 TABLET AT BEDTIME. * Quantity: 30 Refills: 5 Gladys M.D., Thaddeus * Start Active Nitrofurantoin Monohyd Macro 100 MG Oral Capsule TAKE 1 CAPSULE TWICE DAILY UNTIL GONE. * Quantity: 20 Refills: 0 [place] M.D., Thaddeus * Start Active Phenazopyridine HCl - 200 MG Oral Tablet 1 PO TID X 2 days * Quantity: 6 Refills: 0 [place] M.D., Thaddeus * Start Active Sprintec 28 0.25-35 MG-MCG Oral Tablet TAKE 1 TABLET DAILY DIRECTED. * Quantity: 1 Refills: 0 [place] M.D., Thaddeus * Start 18-Oct-2015 Active 28 Tablet Disp Pack PredniSONE 50 MG Oral Tablet take 1 daily for 5 days * Quantity: 5 Refills: 0 Gladys M.D., Thaddeus * Start 04-Nov-2015 Active Cefdinir 300 MG Oral Capsule TAKE 1 CAPSULE EVERY 12 HOURS UNTIL GONE. * Quantity: 20 Refills: 0 [place] M.D., Thaddeus * Start 04-Nov-2015 Active Ventolin HFA 108 (90 Base) MCG/ACT Inhalation Aerosol Solution INHALE 2 PUFFS EVERY 4 HOURS NEEDED FOR COUGH AND WHEEZE. * Quantity: 1 Refills: 0 [place] M.D., Thaddeus * Start 04-Nov-2015 Active 8 [...] times daily * Quantity: 90 Refills: 6 [place] M.D., Thaddeus * Start 05-Dec-2015 Active Celecoxib 200 MG Oral Capsule take 1 capsule daily * Quantity: 30 Refills: 0 Gladys M.D., Thaddeus * Start 05-Dec-2015 Active Allergies [...] On 16-Dec-2015 16:15 Interventions Provided Medication Changes* Sprintec 28 0.25-35 [...]
--- OUTSIDE RECORDS SUMMARY | 2016-09-19 16:57 | XMS REPORT | Summary of Care ---
Author Author Yonatan Graham M.D. Organization Unknown Address Unknown Phone Unavailable Care Team Providers Care Home Based Assistant Name Role Phone Thaddeus Graham M.D. Unavailable [...] Active Alcoholism, chronic (303.90, F10.20) Status: Active Medications Name Dates Details FLUoxetine HCl - 40 MG Oral Capsule take 1 capsule daily Quantity: 30 [place] M.D., Thaddeus * Start 20-Jul-2015 Active TraZODone HCl - 150 MG Oral Tablet TAKE 1 TABLET AT BEDTIME. * Quantity: 30 Refills: 3 [place] M.D., Thaddeus * Start 22-Jul-2015 Active Benzonatate 100 MG Oral Capsule TAKE 1 CAPSULE 3 TIMES DAILY NEEDED. * Quantity: 30 Refills: 2 [place] M.D., Thaddeus * Start 22-Jul-2015 Active GuaiFENesin ER 600 MG Oral Tablet Extended Release 12 Hour TAKE 2 TABLETS EVERY 12 HOURS. * Quantity: 40 Refills: 0 Gladys M.D., Thaddeus * Start 28-Jul-2015 Active Montelukast Sodium 10 MG Oral Tablet TAKE 1 TABLET AT BEDTIME. * Quantity: 30 Refills: 5 [place] M.D., Thaddeus * Start Active Sprintec 28 [...] TABLET DAILY. * Quantity: 30 Refills: 3 [place] M.D., Thaddeus * Start 03-Jan-2016 Active Lidocaine 5 % External Ointment Apply to painful area four times a day as needed * Quantity: 1 Refills: 2 Gladys M.D.Thaddeus * Start 04-Jan-2016 Active 35 GM Tube Clindamycin HCl - 300 MG Oral Capsule take 1 po QID * Quantity: 60 Refills: 0 [place] M.D.Thaddeus * Start 05-Jan-2016 Active Cefdinir 300 MG Oral Capsule TAKE 1 CAPSULE EVERY 12 HOURS UNTIL GONE. * Quantity: 20 Refills: 0 Gladys M.D.Thaddeus * Start 13-Jan-2016 Active OLANZapine 10 MG Oral Tablet Dispersible TAKE 1 TABLET Daily at HS * Quantity: 30 Refills: 3 [place] M.D.Thaddeus * Start 20-Jan-2016 Active Mupirocin 2 % External Ointment APPLY A SMALL AMOUNT 3 TIMES DAILY DIRECTED. * Quantity: 1 Refills: 2 [place] M.D.Thaddeus * Start 20-Jan-2016 Active 22 GM Tube PredniSONE 5 MG Oral Tablet Take 1 tablet daily * Quantity: 30 Refills: 3 Gladys M.D.Thaddeus * Start 20-Jan-2016 Active [place] Carbonate ER 450 MG Oral Tablet Extended Release TAKE 2 TABLETS AT BEDTIME. * Quantity: 60 Refills: 5 [place] M.D.Thaddeus * Start 02-Feb-2016 Active Acamprosate Calcium 333 MG Oral Tablet Delayed Release TAKE 1 TABLET 3 TIMES DAILY. * Quantity: 90 Refills: 0 Gladys MYonatan Sierra * Start 09-Mar-2016 Active Allergies and Adverse Reactions Name Dates [...] unknown Vital Signs Date Test Result Details 09-Mar-2016 13:02 BP Systolic 126 mm[Hg] Status: Comments: Location: ; Position: BP Diastolic 72 mm[Hg] Status: Comments: Location: ; Position: Temperature [...] Goals not documented Interventions Provided Medication Changes* Acamprosate Calcium 333 MG Oral Tablet Delayed Release - Start Instructions Name Dates Details Instructions [...] not documented On 18-Oct-2015 11:00 Appointment; Thaddeus Graahm M.D. Encounter Diagnosis: Problem [...]
--- OUTSIDE RECORDS SUMMARY | 2016-09-19 16:57 | XMS REPORT | Summary of Care ---
Author Author Thaddeus Graham M.D. Organization Unknown Address Unknown Phone Unavailable Care Team Providers Care Mechanic Marine Engine Name Role Phone Thaddeus Graham M.D. Unavailable [...] 1 CAPSULE DAILY. * Start 20-Jul-2015 Active [place] Carbonate 300 MG Oral Capsule TAKE 1 CAPSULE 3 TIMES DAILY. * Refills: 0 * Start 20-Jul-2015 Active TraZODone HCl - 150 MG Oral Tablet TAKE 1 TABLET AT BEDTIME. * Quantity: 30 Refills: 3 [place] M.D., Thaddeus * Start 22-Jul-2015 Active Benzonatate 100 MG Oral Capsule TAKE 1 CAPSULE 3 TIMES DAILY NEEDED. * Quantity: 30 Refills: 2 [place] M.D., Thaddeus * Start 22-Jul-2015 Active Indomethacin 50 MG Oral Capsule TAKE 1 CAPSULE 3 TIMES DAILY NEEDED. * Quantity: 90 Refills: 1 Gladys M.D., Thaddeus * Start 28-Jul-2015 Active OxyCODONE HCl - 5 MG Oral Tablet TAKE 1 TABLET TID PRN * Quantity: 30 Refills: 0 [place] M.D., Thaddeus * Start 28-Jul-2015 Active GuaiFENesin ER 600 MG Oral Tablet Extended Release 12 Hour TAKE 2 TABLETS EVERY 12 HOURS. * Quantity: 40 Refills: 0 [place] M.D., Thaddeus * Start 28-Jul-2015 Active Cefdinir 300 MG Oral Capsule TAKE 1 CAPSULE TWICE DAILY UNTIL GONE. * Quantity: 14 Refills: 0 [place] M.D., Thaddeus * Start 28-Jul-2015 Active LevoFLOXacin 750 MG Oral Tablet TAKE 1 TABLET DAILY. * Quantity: 20 Refills: 0 [place] M.D., Thaddeus * Start 04-Aug-2015 Active Montelukast [...] 2 days * Quantity: 6 Refills: 0 [place] M.D., Thaddeus * Start Active Sprintec 28 0.25-35 MG-MCG Oral Tablet TAKE 1 TABLET DAILY DIRECTED. * Quantity: 1 Refills: 0 [place] M.D., Thaddeus * Start 18-Oct-2015 Active 28 Tablet Disp Pack PredniSONE 50 MG Oral Tablet take 1 daily for 5 days * Quantity: 5 Refills: 0 [place] M.D., Thaddeus * Start 04-Nov-2015 Active Cefdinir 300 MG Oral Capsule TAKE 1 CAPSULE EVERY 12 HOURS UNTIL GONE. * Quantity: 20 Refills: 0 [place] M.D., Thaddeus * Start 04-Nov-2015 Active Ventolin HFA 108 (90 Base) MCG/ACT Inhalation Aerosol Solution INHALE 2 PUFFS EVERY 4 HOURS NEEDED FOR COUGH AND WHEEZE. * Quantity: 1 Refills: 0 [place] M.D., Thaddeus * Start 04-Nov-2015 Active 8 GM Inhaler TiZANidine HCl - 4 MG Oral Tablet TAKE 1 TABLET 3 TIMES DAILY NEEDED. * Quantity: 30 Refills: 0 [place] M.D., Thaddeus * Start 02-Dec-2015 Active TraMADol HCl - 50 MG Oral Tablet TAKE 1 TO 2 TABLETS 4 TIMES DAILY NEEDED FOR PAIN. * Quantity: 60 Refills: 1 [place] M.D., Thaddeus * Start 02-Dec-2015 Active Salsalate 750 MG Oral Tablet TAKE 1 TABLET 3 times daily * Quantity: 90 Refills: 6 [place] M.D., Thaddeus * Start 05-Dec-2015 Active Celecoxib 200 MG Oral Capsule take 1 capsule daily * Quantity: 30 Refills: 0 [place] M.D., Thaddeus * Start 05-Dec-2015 Active ALPRAZolam XR 2 MG Oral Tablet Extended Release 24 Hour TAKE 1 TABLET DAILY. * Quantity: 30 Refills: 0 Gladys M.D., Thaddeus * Start 03-Jan-2016 Active Lidocaine 5 % External Ointment Apply to painful area four times a day as needed * Quantity: 1 Refills: 2 [place] M.D., Thaddeus * Start 04-Jan-2016 Active 35 GM Tube Clindamycin HCl - 300 MG Oral Capsule take 1 po QID * Quantity: 60 Refills: 0 [place] M.D., Thaddeus * Start 05-Jan-2016 Active Haloperidol 5 MG Oral Tablet TAKE 1 TABLET AT BEDTIME. * Quantity: 10 Refills: 0 Gladys M.D., Thaddeus * Start 10-Jan-2016 Active Cefdinir 300 MG Oral Capsule TAKE 1 CAPSULE EVERY 12 HOURS UNTIL GONE. * Quantity: 20 Refills: 0 [place] M.D., Thaddeus * Start 13-Jan-2016 Active Allergies [...]
--- OUTSIDE RECORDS SUMMARY | 2016-09-19 16:58 | XMS REPORT ---
Author Mimi Rios Organization [employer] Address Unknown Phone Unavailable Care Team Providers Care Motorcycle Subassembler Name Role Phone Mimi Owens CP Unavailable [...] without spontaneous rupture of eardrum 382.00 Active Assessment Unspecified viral hepatitis C without [...] 305.1 Active Problem Fatigue 780.79 Active Medications Medication Code System Code Instructions Start Date End Date Status Dosage Cephalexin [facility] [address]-67 500 MG Orally 3 TIMES DAILY Active 1 tablet Adderall [facility] [address]-09 20 MG Orally TWICE DAILY Active 1 tablet Lexapro [facility] [address]-08 20 MG Orally Once a day Active 1 TABLET Vistaril [facility] [address]-65 25 MG Orally TWICE DAILY Active 1 capsule Antipyrine-Benzocaine [facility] [address]-49 5.4-1.4 % Otic Three times a day Active 1 drop affected ear canal into affected ear Trazodone HCl [facility] [address]-73 150 MG Orally Once a day Active 1 tablet at bedtime Depakote [facility] [address]-13 500 MG Orally 3 TIMES DAILY Active 1 TABLET Procedures Procedure Coding System Code Date HEPATIC FUNCTION PANEL CPT-4 33308 July 20, 2013 GENOTYPE, DNA, HEPATITIS C CPT-4 96012 July 20, 2013 URINALYSIS, AUTO, W/O SCOPE CPT-4 83064 July 20, 2013 URINE CULTURE/COLONY COUNT CPT-4 06429 July 20, 2013 HEPATITIS C, RNA, QUANT CPT-4 73585 July 20, 2013 Office Visit, Est Pt., Level 3 CPT-4 60795 July 20, 2013 URINE BACTERIA CULTURE CPT-4 26452 July 20, 2013 Vital Signs Date/Time: July 20, 2013 Blood Pressure Diastolic 79 mm Hg Blood Pressure Systolic 120 mm Hg Temperature 97.9 F Cardiac Monitoring Heart Rate 106 /min Results Urinalysis (UA) (GM) PRO(- ) NEGATIVE pH(- ) 6.5 BLO(- ) 2+ SG(- ) 1.025 KET(- ) NEGATIVE NIT(- ) NEGATIVE COLOR(- ) YELLOW URO(- ) 0.2 CLARITY(- ) SLIGHTLY CLOUDY GLU(- ) NEGATIVE RAVI(- ) 1+ HETAL(- ) NEGATIVE Summary Purpose [employer] Submission
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
--- OUTSIDE RECORDS SUMMARY | 2016-09-19 16:58 | XMS REPORT | Summary of Care ---
Author Author Thaddeus Graham M.D. Organization Unknown Address Unknown Phone Unavailable Care Team Providers Care Photonics Technician Name Role Phone Thaddeus Graham M.D. [...] 1 CAPSULE DAILY. * Start 20-Jul-2015 Active Shields Carbonate 300 MG Oral Capsule TAKE 1 [...] HOURS NEEDED * Quantity: 1 Refills: 6 Custer M.D., Thaddeus * Start 22-Jul-2015 Active 6.7 [...] 12 HOURS. * Quantity: 40 Refills: 0 Custer M.D., Thaddeus * Start 28-Jul-2015 Active Cefdinir 300 MG Oral Capsule TAKE 1 CAPSULE TWICE DAILY UNTIL GONE. * Quantity: 14 Refills: 0 Custer M.D., Thaddeus * Start 28-Jul-2015 Active LevoFLOXacin 750 MG Oral Tablet TAKE 1 TABLET DAILY. * Quantity: 20 Refills: 0 Gladys M.D., Thaddeus * Start 04-Aug-2015 Active Montelukast Sodium 10 MG Oral Tablet TAKE 1 TABLET AT BEDTIME. * Quantity: 30 Refills: 5 Custer M.D., Thaddeus * Start Active Nitrofurantoin Monohyd [...] 14:48 Urinalysis, reflex to Micro and Culture ([facility] ) 8016 pH 6.0 Range: 5.0-7.5 [...] 0-2 /HPF Range: 0-2 16:12 URINE CULTURE [id number] Comments: [employer] performed at: [place], [facility] [address] [place], [address], Maintenance Instructor: Nathan Baltazar D.O., MPHQuest Collection Date/Time: [id number] Results Received Date/Time: [id number] Reported Date/Time: [id number] FASTING:NOQuest performed at: [place], [facility] [address] [place], [address], Maintenance Instructor: Nathan Baltazar D.O., MPHQuest Collection Date/Time: [id number] Results Received Date/Time: [id number] Reported Date/Time: [id number] FASTING:NO CULTURE, URINE, ROUTINE SEE NOTE (Abnormal) Comments: CULTURE, URINE, ROUTINE MICRO NUMBER: [id number] TEST STATUS: FINAL SPECIMEN SOURCE : URINE [...] performed to to confirm susceptibility to parenteral cefazolin.[CO]----- Plan of Care Name Dates Details Planned Observations Planned Goals not documented Planned Encounters Appointment; Provider: Thaddeus Graham M.D. On 18-Oct-2015 11:00 Instructions Name Dates Details Instructions not documented [...]
--- OUTSIDE RECORDS SUMMARY | 2016-09-19 16:59 | XMS REPORT | Summary of Care ---
Author Author Thaddeus Graham M.D. Organization Unknown Address Unknown Phone Unavailable Care Team Providers Care Tube Handler Name Role Phone Thaddeus Graham M.D. Unavailable [...] 1 CAPSULE DAILY. * Start 20-Jul-2015 Active [place] Carbonate 300 MG Oral Capsule TAKE 1 [...] TID PRN * Quantity: 30 Refills: 0 [place] M.D., Thaddeus * Start 28-Jul-2015 Active GuaiFENesin ER 600 MG Oral Tablet Extended Release 12 Hour TAKE 2 TABLETS EVERY 12 HOURS. * Quantity: 40 Refills: 0 [place] M.D., Thaddeus * Start 28-Jul-2015 Active Cefdinir 300 MG Oral Capsule TAKE 1 CAPSULE TWICE DAILY UNTIL GONE. * Quantity: 14 Refills: 0 [place] M.D., Thaddeus * Start 28-Jul-2015 Active LevoFLOXacin 750 MG Oral Tablet TAKE 1 TABLET DAILY. * Quantity: 20 Refills: 0 [place] M.D., Thaddeus * Start 04-Aug-2015 Active Montelukast Sodium 10 MG Oral Tablet TAKE 1 TABLET AT BEDTIME. * Quantity: 30 Refills: 5 [place] M.D., Thaddeus * Start Active Nitrofurantoin Monohyd Macro 100 MG Oral Capsule TAKE 1 CAPSULE TWICE DAILY UNTIL GONE. * Quantity: 20 Refills: 0 [place] M.D., Thaddeus * Start Active Phenazopyridine HCl - 200 MG Oral Tablet 1 PO TID X 2 days * Quantity: 6 Refills: 0 [place] M.D., Thaddeus * Start Active Sprintec 28 0.25-35 MG-MCG Oral Tablet TAKE 1 TABLET DAILY DIRECTED. * Quantity: 1 Refills: 0 [place] M.D., Thaddeus * Start 18-Oct-2015 Active 28 Tablet Disp Pack PredniSONE 50 MG Oral Tablet take 1 daily for 5 days * Quantity: 5 Refills: 0 [place] M.D., Thaddeus * Start 04-Nov-2015 Active Cefdinir 300 MG Oral Capsule TAKE 1 CAPSULE EVERY 12 HOURS UNTIL GONE. * Quantity: 20 Refills: 0 [place] M.D., Thaddeus * Start 04-Nov-2015 Active Ventolin HFA 108 (90 Base) MCG/ACT Inhalation Aerosol Solution INHALE 2 PUFFS EVERY 4 HOURS NEEDED FOR COUGH AND WHEEZE. * Quantity: 1 Refills: 0 [place] M.D., Thaddeus * Start 04-Nov-2015 Active 8 GM Inhaler TiZANidine HCl - 4 MG Oral Tablet TAKE 1 TABLET 3 TIMES DAILY NEEDED. * Quantity: 30 Refills: 0 [place] M.D., Thaddeus * Start 02-Dec-2015 Active TraMADol HCl - 50 MG Oral Tablet TAKE 1 TO 2 TABLETS 4 TIMES DAILY NEEDED FOR PAIN. * Quantity: 60 Refills: 1 [place] M.D., Thaddeus * Start 02-Dec-2015 Active Salsalate 750 MG Oral Tablet TAKE 1 TABLET 3 times daily * Quantity: 90 Refills: 6 [place] M.D., Thaddeus * Start 05-Dec-2015 Active Celecoxib 200 MG Oral Capsule take 1 capsule daily * Quantity: 30 Refills: 0 Gladys M.D., Thaddeus * Start 05-Dec-2015 Active ALPRAZolam XR 2 MG Oral Tablet Extended Release 24 Hour TAKE 1 TABLET DAILY. * Quantity: 30 Refills: 0 [place] M.D., Thaddeus * Start 03-Jan-2016 Active Allergies and Adverse Reactions Name Dates [...] Tonsillectomy CBC w/ Manual Diff 7225 Ordered: 03-Jan-2016 C REACTIVE PROTEIN, CRP 2030 Ordered: 03-Jan-2016 Immunization Name Dates Details Immunizations not documented [...] Details 28-Dec-2015 08:19 POTASSIUM 1170 POTASSIUM 4.1 Plan of Care Name Dates Details Planned Observations Planned Goals not documented Planned Encounters Appointment; Provider: Thaddeus Graham M.D. On 10-Jan-2016 10:45 Interventions Provided Medication Changes* ALPRAZolam XR 2 MG Oral Tablet Extended Release 24 Hour - Start * OxyCODONE HCl - 5 MG Oral Tablet - Renew with Changes Labs/Procedures/Imaging* C REACTIVE PROTEIN, CRP 2029; To be Done: 03 Jan 2016 * CBC w/ Manual Diff 7225; To be Done: 03 Jan 2016 Instructions Name Dates Details Instructions [...]
--- OUTSIDE RECORDS SUMMARY | 2016-09-19 16:59 | XMS REPORT | Summary of Care ---
Author Author Thaddeus Graham M.D. Organization Unknown Address Unknown Phone Unavailable Care Team Providers Care Radiator Mechanic Name Role Phone Thaddeus Graham M.D. [...] 1 CAPSULE DAILY. * Start 20-Jul-2015 Active [place] Carbonate 300 MG Oral Capsule TAKE 1 [...] TID PRN * Quantity: 30 Refills: 0 [place] M.D., Thaddeus * Start 28-Jul-2015 Active GuaiFENesin ER 600 MG Oral Tablet Extended Release 12 Hour TAKE 2 TABLETS EVERY 12 HOURS. * Quantity: 40 Refills: 0 [place] M.D., Thaddeus * Start 28-Jul-2015 Active Cefdinir 300 MG Oral Capsule TAKE 1 CAPSULE TWICE DAILY UNTIL GONE. * Quantity: 14 Refills: 0 [place] M.D., Thaddeus * Start 28-Jul-2015 Active LevoFLOXacin 750 MG Oral Tablet TAKE 1 TABLET DAILY. * Quantity: 20 Refills: 0 [place] M.D., Thaddeus * Start 04-Aug-2015 Active Montelukast Sodium 10 MG Oral Tablet TAKE 1 TABLET AT BEDTIME. * Quantity: 30 Refills: 5 [place] M.D., Thaddeus * Start Active Nitrofurantoin Monohyd Macro 100 MG Oral Capsule TAKE 1 CAPSULE TWICE DAILY UNTIL GONE. * Quantity: 20 Refills: 0 [place] M.D., Thaddeus * Start Active Phenazopyridine HCl - 200 MG Oral Tablet 1 PO TID X 2 days * Quantity: 6 Refills: 0 [place] M.D., Thaddeus * Start Active Sprintec 28 0.25-35 MG-MCG Oral Tablet TAKE 1 TABLET DAILY DIRECTED. * Quantity: 1 Refills: 0 [place] M.D., Thaddeus * Start 18-Oct-2015 Active 28 Tablet Disp Pack PredniSONE 50 MG Oral Tablet take 1 daily for 5 days * Quantity: 5 Refills: 0 [place] M.D., Thaddeus * Start 04-Nov-2015 Active Cefdinir 300 MG Oral Capsule TAKE 1 CAPSULE EVERY 12 HOURS UNTIL GONE. * Quantity: 20 Refills: 0 [place] M.D., Thaddeus * Start 04-Nov-2015 Active Ventolin HFA 108 (90 Base) MCG/ACT Inhalation Aerosol Solution INHALE 2 PUFFS EVERY 4 HOURS NEEDED FOR COUGH AND WHEEZE. * Quantity: 1 Refills: 0 [place] M.D., Thaddeus * Start 04-Nov-2015 Active 8 GM Inhaler TiZANidine HCl - 4 MG Oral Tablet TAKE 1 TABLET 3 TIMES DAILY NEEDED. * Quantity: 30 Refills: 0 [place] M.D., Thaddeus * Start 02-Dec-2015 Active TraMADol HCl - 50 MG Oral Tablet TAKE 1 TO 2 TABLETS 4 TIMES DAILY NEEDED FOR PAIN. * Quantity: 60 Refills: 1 [place] M.D., Thaddeus * Start 02-Dec-2015 Active Salsalate 750 MG Oral Tablet TAKE 1 TABLET 3 times daily * Quantity: 90 Refills: 6 [place] M.D., Thaddeus * Start 05-Dec-2015 Active Celecoxib [...]
--- OUTSIDE RECORDS SUMMARY | 2016-09-19 16:59 | XMS REPORT ---
Author Author Abby Page Organization [employer] Address Unknown Phone Unavailable Care Team Providers Care Public Relations Player Name Role Phone Abby Page CP Unavailable Allergies, Adverse Reactions, Alerts Substance [...] psychostimulant dependence, 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 Assessment Pain in joint, multiple sites 719.49 Active Assessment Lumbago 724.2 Active Problem Acute gingivitis, plaque induced 523.00 Active Problem Acute suppurative otitis media without spontaneous rupture of eardrum 382.00 Active Medications Medication Code System Code Instructions Start Date End Date Status Dosage Ibuprofen [facility] [address]-71 600 MG Orally Every 8 hours as needed for pain July 24, 2013 August 03, 2013 Active 1 tablet Trazodone HCl [facility] [address]-05 150 MG Orally Once a day Active 1 tablet at bedtime Adderall [facility] [address]-96 20 MG Orally TWICE DAILY Active 1 tablet Depakote [facility] [address]-63 500 MG Orally 3 TIMES DAILY Active 1 TABLET Cephalexin [facility] [address]-74 500 MG Orally 3 TIMES DAILY Active 1 tablet Vistaril [facility] [address]-64 25 MG Orally TWICE DAILY Active 1 capsule Antipyrine-Benzocaine [facility] [address]-55 5.4-1.4 % Otic Three times a day Active 1 drop affected ear canal into affected ear Lexapro [facility] [address]-75 20 MG Orally Once a day Active 1 TABLET Procedures Procedure Coding System Code Date Office Visit, Est Pt., Level 3 CPT-4 02803 July 24, 2013 URINALYSIS, AUTO, W/O SCOPE CPT-4 77593 July 24, 2013 Results Urinalysis (UA) (GM) PRO(- ) neg pH(- ) 7.0 BLO(- ) neg SG(- ) 1.020 KET(- ) neg NIT(- ) neg COLOR(- ) yellow URO(- ) 0.2 CLARITY(- ) clear GLU(- ) neg RAVI(- ) neg HETAL(- ) neg Summary Purpose [employer] Submission
--- OUTSIDE RECORDS SUMMARY | 2016-09-19 16:59 | XMS REPORT | Summary of Care ---
Author Author Thaddeus Graham M.D. Organization Unknown Address [address], [place] [id number] Phone Unavailable Care Team Providers Care Lamp Tester And Inspector Name Role Phone Thaddeus Graham M.D. Unavailable [...] Viral RNA, Quantitative, RT- PCR w/Reflex to [id number] Comments: [facility] performed at: [facility], [facility], [address] [place] [address], [phone], Retoucher Photoengraving: Jose Shay MDQuest Collection Date/Time: [id number] Results Received Date/Time: [id number] Reported Date/Time: [id number] FASTING:NO HCV RNA, QUANTITATIVE REAL TIME PCR [id number] IU/mL (Above high threshold) Comments: [[facility]]----- HCV RNA, QUANTITATIVE REAL TIME PCR 6.64 LogIU/mL (Above high threshold) Comments: REFERENCE RANGE: HCV RNA, PCR, QUANT: <15 IU/mL HCV RNA, PCR, QUANT: <1.18 LogIU/mLThis test was performed using the RUSLAN(R) AmpliPrep/RUSLAN(R)TaqMan(R) HCV Test, v2.0.The performance characteristics of this assay have beendetermined by [facility]. Performance characteristicsrefer to the analytical performance of the test.For additional information, please refer [email or web address]/faq [email or web address](This link is being provided for informational/educational purposesonly. )[[facility]]----- 29-Jul-2015 10:19 Hepatitis C Viral RNA, Genotype, LIPA [id number] Comments : [facility] performed at: [facility], [facility], [address] [place] [address], [phone], Retoucher Photoengraving: Jose Shay MDQuest Collection Date/Time: [id number] Results Received Date/Time: [id number] Reported Date/Time: [id number] FASTING:NO HCV GENOTYPE, LIPA GENOTYPE 1a (Better) Comments: REFERENCE RANGE: NOT DETECTEDThe method used in this test is RT-PCR and reversehybridization (Line Probe) of the 5' UTR and coreregion of the HCV genome.This test was developed and its analytical performancecharacteristics have been determined by [facility].It has not been cleared or approved by the U.S. Food andDrug Administration. The FDA has determined that suchclearance or approval is not necessary. This assay hasbeen validated pursuant to the CLIA regulations and isused for clinical purposes.http://education.[email or web address] /faq/ HCVGenotyping[[facility]]----- Plan of [...]
--- OUTSIDE RECORDS SUMMARY | 2016-09-19 17:00 | XMS REPORT ---
Author Author Vielka Manning Organization [facility] Address [address] [place] [address] Care Team Providers Care Green Coffee Blender Name Role Phone Vielka Manning Unavailable PROBLEMS Type Condition ICD9-CM Code SXP89-RT Code Onset Dates Condition Status SNOMED Code Problem Acute serous otitis media 381.01 Active 090571214 Problem Pain in joint, multiple sites 719.49 Active 05444302 Problem Unspecified viral hepatitis C without hepatic coma 070.70 Active 96288282 Problem Migraine with aura, intractable, without status migrainosus G43.119 Active 821333214 Problem Bipolar disorder, current episode depressed, mild or moderate severity , unspecified F31.30 Active 91772546 Problem Urinary tract infection, site not specified 599.0 Active 69313773 Problem Lumbago 724.2 Active 680615958 Problem flank pain 789.00 Active 123526479 Problem Abdominal pain, right upper quadrant 789.01 Active 479988863 Problem Acute gingivitis, plaque induced 523.00 Active 18309703 Problem Acute suppurative otitis media without spontaneous rupture of eardrum 382.00 Active 57232487 Problem elevated liver enzymes 794.8 Active 921812069 Problem Fatigue 780.79 Active 30588139 Problem Other acute otitis externa 380.22 Active 34232285 Problem Nondependent tobacco use disorder 305.1 Active 376072679 Problem Health examination of defined subpopulation V70.5 Active 852508570 Problem Amphetamine and other psychostimulant dependence, 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
--- OUTSIDE RECORDS SUMMARY | 2016-09-19 17:00 | XMS REPORT ---
Author Author Vielka Manning Organization [facility] Address [address] [place] [address] Care Team Providers Care Customer Service Associate Name Role Phone Vielka Manning Unavailable PROBLEMS Type Condition ICD9-CM Code AWP82-HD Code Onset Dates Condition Status SNOMED Code Problem Acute serous otitis media 381.01 Active 241067808 Problem Pain in joint, multiple sites 719.49 Active 31411278 Problem Unspecified viral hepatitis C without hepatic coma 070.70 Active 93691560 Problem Migraine with aura, intractable, without status migrainosus G43.119 Active 572020859 Problem Bipolar disorder, current episode depressed, mild or moderate severity , unspecified F31.30 Active 51724111 Problem Urinary tract infection, site not specified 599.0 Active 98604091 Problem Lumbago 724.2 Active 910609205 Problem flank pain 789.00 Active 630491110 Problem Abdominal pain, right upper quadrant 789.01 Active 966676573 Problem Acute gingivitis, plaque induced 523.00 Active 71968401 Problem Acute suppurative otitis media without spontaneous rupture of eardrum 382.00 Active 59111062 Problem elevated liver enzymes 794.8 Active 973884100 Problem Fatigue 780.79 Active 59545681 Problem Other acute otitis externa 380.22 Active 18844259 Problem Nondependent tobacco use disorder 305.1 Active 716512208 Problem Health examination of defined subpopulation V70.5 Active 799366442 Problem Amphetamine and other psychostimulant dependence, 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 ALLERGIES Substance Reaction Event Type Date Status Bactrim rash Drug Allergy July, Active Tetracycline HCl Unknown Drug Allergy July, Active Penicillin G Benzathine Unknown Drug Allergy July, Active Erythromycin Unknown Drug Allergy July, Active SOCIAL HISTORY No smoking Hx information available PLAN OF CARE Activity Details Follow Up 4 Weeks Reason:null VITAL SIGNS Height 62 in 2016-08-10 Weight 230 lbs 2016-08-10 BMI 42.06 kg/m2 2016-08-10 Heart Rate 69 /min 2016-08-10 Temperature 97.8 degrees Fahrenheit 2016-08-10 Blood pressure systolic 118 mm Hg 2016-08-10 Blood pressure diastolic 85 mm Hg 2016-08-10 MEDICATIONS Medication Instructions Dosage Frequency Start Date End Date Duration Status Prozac 20 MG Orally Once a day 1 capsule in the morning 24h Active Klonopin 1 MG 1 tablet Active trazadone 50mg PRN Active Klonopin 1 MG Orally Twice a day PRN 1 tablet July, Active Promethazine HCl 25 MG/ML Injection x1 1 ml as needed July, Active [place] Carbonate 450 2 capsules Active Cephalexin 500 MG Orally every 12 hrs 1 capsule 12h July, Aug, 10 day(s) Active Remeron 15 MG Orally Once a day 1 tablet at bedtime 24h Active Ketorolac Tromethamine 30 MG/ML (IM) Intramuscular x1 0.5 ml as needed July, July, 5 day(s) Active RESULTS No Results PROCEDURES Procedure Date Ordered Related Diagnosis Body Site THER/PROPH/DIAG INJ, SC/IM August 10, 2016 KETOROLAC/TORADOL August 10, 2016 Office Visit, New Pt., Level 3 August 10, 2016 IMMUNIZATIONS Vaccine Route Administration Date Status KETOROLAC/TORADOL IM Intramuscular August 10, 2016 Administered Promethazine IM Intramuscular August 10, 2016 Administered
--- OUTSIDE RECORDS SUMMARY | 2016-09-19 17:00 | XMS REPORT | Summary of Care ---
Author Author Gladys Jamil, Thaddeus Organization Unknown Address Unknown Phone Unavailable Care Team Providers Care Account Associate Name Role Phone Thaddeus Graham M.D. [...] Capsule take 1 capsule daily Quantity: 30 [place] M.D., Thaddeus * Start 20-Jul-2015 Active TraZODone HCl - 150 MG Oral Tablet TAKE ONE TABLET BY MOUTH AT BEDTIME * Quantity: 30 Refills: 2 [place] M.D., Thaddeus * Start 19-Jun-2016 Active Benzonatate 100 MG Oral Capsule TAKE 1 CAPSULE 3 TIMES DAILY NEEDED. * Quantity: 30 Refills: 2 [place] M.D., Thaddeus * Start 22-Jul-2015 Active GuaiFENesin ER 600 MG Oral Tablet Extended Release 12 Hour TAKE 2 TABLETS EVERY 12 HOURS. * Quantity: 40 Refills: 0 [place] M.D., Thaddeus * Start 28-Jul-2015 Active Montelukast Sodium 10 MG Oral Tablet TAKE 1 TABLET AT BEDTIME. * Quantity: 30 Refills: 5 [place] M.D., Thaddeus * Start Active Sprintec 28 0.25-35 MG-MCG Oral Tablet TAKE 1 TABLET DAILY DIRECTED. * Quantity: 1 Refills: 0 [place] M.D., Thaddeus * Start 18-Oct-2015 Active 28 Tablet Disp Pack Ventolin HFA 108 (90 Base) MCG/ACT Inhalation Aerosol Solution INHALE 2 PUFFS EVERY 4 HOURS NEEDED FOR COUGH AND WHEEZE. * Quantity: 1 Refills: 0 [place] M.D., Thaddeus * Start 04-Nov-2015 Active 8 GM Inhaler Celecoxib 200 MG Oral Capsule take 1 capsule daily * Quantity: 30 Refills: 0 [place] M.D., Thaddeus * Start 05-Dec-2015 Active ALPRAZolam XR 2 MG Oral Tablet Extended Release 24 Hour Take one tablet by mouth daily * Quantity: 30 Refills: 2 [place] M.D., Thaddeus * Start 06-May-2016 Active Lidocaine 5 % External Ointment Apply to painful area four times a day as needed * Quantity: 1 Refills: 2 [place] M.D., Thaddeus * Start 04-Jan-2016 Active 35 GM Tube Clindamycin HCl - 300 MG Oral Capsule take 1 po QID * Quantity: 60 Refills: 0 [place] M.D., Thaddeus * Start 05-Jan-2016 Active Cefdinir 300 MG Oral Capsule TAKE 1 CAPSULE EVERY 12 HOURS UNTIL GONE. * Quantity: 20 Refills: 0 [place] M.D., Thaddeus * Start 13-Jan-2016 Active OLANZapine 10 MG Oral Tablet Dispersible TAKE 1 TABLET Daily at HS * Quantity: 30 Refills: 3 [place] M.D., Thaddeus * Start 20-Jan-2016 Active Mupirocin 2 % External Ointment APPLY A SMALL AMOUNT 3 TIMES DAILY DIRECTED. * Quantity: 1 Refills: 2 [place] M.D.Thaddeus * Start 20-Jan-2016 Active 22 GM Tube [place] Carbonate ER 450 MG Oral Tablet Extended Release TAKE 2 TABLETS AT BEDTIME. * Quantity: 60 Refills: 5 [place] M.D.Thaddeus * Start 02-Feb-2016 Active Acamprosate Calcium 333 MG Oral Tablet Delayed Release TAKE 1 TABLET 3 TIMES DAILY. * Quantity: 90 Refills: 0 Gladys M.DYonatan Heredia * Start 09-Mar-2016 Active Saxenda 18 MG/3ML Subcutaneous Solution Pen-injector Inject daily before breakfast. Start at 0.6mg and increase by 0.6mg weekly until getting to 3mg daily. * Quantity: 1 Refills: 5 [place] M.D.Thaddeus * Start 27-Mar-2016 Active 3 ML Pen (5 Pens) [place] ULtrafine 31 guage 3/8 inch pen needles * Quantity: 100 Refills: 11 [place] M.D., Thaddeus * Start 27-Mar-2016 Active Minocycline HCl - 100 MG Oral Capsule TAKE 1 CAPSULE TWICE DAILY. * Quantity: 60 Refills: 0 [place] M.D.Thaddeus * Start 27-Apr-2016 Active HydrOXYzine Pamoate 100 MG Oral Capsule 1 PO BID PRN anxiety attack * Quantity: 20 Refills: 2 Thaddeus Graham M.D. * Start 27-Apr-2016 Active Lidocaine 5 % External Ointment Apply to painful area four times a day as needed * Quantity: 1 Refills: 2 Thaddeus Graham M.D. * Start 27-Apr-2016 Active 35 GM Tube [...] Goals not documented Interventions Provided Medication Changes* TraZODone HCl - 150 MG Oral Tablet [...]
--- OUTSIDE RECORDS SUMMARY | 2016-09-19 17:01 | XMS REPORT | Summary of Care ---
Author Author Gladys Jamil, Thaddeus Organization Unknown Address Unknown Phone Unavailable Care Team Providers Care Pack Press Operator Name Role Phone Thaddeus Graham M.D. [...] AT BEDTIME. * Quantity: 30 Refills: 3 [place] M.D., Thaddeus * Start 22-Jul-2015 Active Benzonatate 100 MG Oral Capsule TAKE 1 CAPSULE 3 TIMES DAILY NEEDED. * Quantity: 30 Refills: 2 [place] M.D., Thaddeus * Start 22-Jul-2015 Active GuaiFENesin ER 600 MG Oral Tablet Extended Release 12 Hour TAKE 2 TABLETS EVERY 12 HOURS. * Quantity: 40 Refills: 0 [place] M.D., Thaddeus * Start 28-Jul-2015 Active Montelukast Sodium 10 MG Oral Tablet TAKE 1 TABLET AT BEDTIME. * Quantity: 30 Refills: 5 [place] M.D., Thaddeus * Start Active Sprintec 28 0.25-35 MG-MCG Oral Tablet TAKE 1 TABLET DAILY DIRECTED. * Quantity: 1 Refills: 0 [place] M.D., Thaddeus * Start 18-Oct-2015 Active 28 Tablet Disp Pack Ventolin HFA 108 (90 Base) MCG/ACT Inhalation Aerosol Solution INHALE 2 PUFFS EVERY 4 HOURS NEEDED FOR COUGH AND WHEEZE. * Quantity: 1 Refills: 0 [place] M.D., Thaddeus * Start 04-Nov-2015 Active 8 GM Inhaler Celecoxib 200 MG Oral Capsule take 1 capsule daily * Quantity: 30 Refills: 0 [place] M.D., Thaddeus * Start 05-Dec-2015 Active ALPRAZolam XR 2 MG Oral Tablet Extended Release 24 Hour Take one tablet by mouth daily * Quantity: 30 Refills: 2 [place] M.D., Thaddeus * Start 06-May-2016 Active Lidocaine 5 % External Ointment Apply to painful area four times a day as needed * Quantity: 1 Refills: 2 [place] M.D., Thaddeus * Start 04-Jan-2016 Active 35 GM Tube Clindamycin HCl - 300 MG Oral Capsule take 1 po QID * Quantity: 60 Refills: 0 [place] M.D., Thaddeus * Start 05-Jan-2016 Active Cefdinir 300 MG Oral Capsule TAKE 1 CAPSULE EVERY 12 HOURS UNTIL GONE. * Quantity: 20 Refills: 0 [place] M.D., Thaddeus * Start 13-Jan-2016 Active OLANZapine 10 MG Oral Tablet Dispersible TAKE 1 TABLET Daily at HS * Quantity: 30 Refills: 3 [place] M.D., Thaddeus * Start 20-Jan-2016 Active Mupirocin 2 % External Ointment APPLY A SMALL AMOUNT 3 TIMES DAILY DIRECTED. * Quantity: 1 Refills: 2 [place] M.D.Thaddeus * Start 20-Jan-2016 Active 22 GM Tube [place] Carbonate ER 450 MG Oral Tablet Extended Release TAKE 2 TABLETS AT BEDTIME. * Quantity: 60 Refills: 5 [place] M.D.Thaddeus * Start 02-Feb-2016 Active Acamprosate Calcium 333 MG Oral Tablet Delayed Release TAKE 1 TABLET 3 TIMES DAILY. * Quantity: 90 Refills: 0 [place] M.D.Yonatan * Start 09-Mar-2016 Active Saxenda 18 MG/3ML Subcutaneous Solution Pen-injector Inject daily before breakfast. Start at 0.6mg and increase by 0.6mg weekly until getting to 3mg daily. * Quantity: 1 Refills: 5 [place] M.D.Thaddeus * Start 27-Mar-2016 Active 3 ML Pen (5 Pens) [place] ULtrafine 31 guage 3/8 inch pen needles [...] as needed * Quantity: 1 Refills: 2 [place] M.D., Thaddeus * Start 27-Apr-2016 Active 35 [...] On 11-May-2016 16:00 Interventions Provided Medication Changes* ALPRAZolam XR 2 MG Oral Tablet Extended Release 24 Hour - Renew Instructions Name Dates Details Instructions [...]
--- OUTSIDE RECORDS SUMMARY | 2016-09-19 17:01 | XMS REPORT | Summary of Care ---
Author Author Thaddeus Graham M.D. Organization Unknown Address [address] [place], [place] [id number] Phone Unavailable Care Team Providers Care Commercial Real Estate Sales Manager Name Role Phone Pedro Luis Alisa Unavailable [...] Refills: 0 Keylakeshia Alisa * Started 20-Jul-2015 [id number] ML Bottle TraZODone HCl - 150 MG [...] Refills: 3 Thaddeus Graham M.D.* Started 22-Jul-2015 [id number] ML Bottle Proventil HFA 108 (90 Base) [...]
--- OUTSIDE RECORDS SUMMARY | 2016-09-19 17:01 | XMS REPORT | Summary of Care ---
Author Author Gladys Jamil, Thaddeus Organization Unknown Address Unknown Phone Unavailable Care Team Providers Care Facility Administrator Name Role Phone Thaddeus Graham M.D. Unavailable [...] due to bronchospasm (519.11, J98.01) Status: Active Migraine headache (346.90, G43.909) Status: Active Obesity (278.00, E66.9) Status: Active [...] DAILY NEEDED. * Quantity: 30 Refills: 2 [place] M.D., Thaddeus * Start 22-Jul-2015 Active GuaiFENesin [...] AND WHEEZE. * Quantity: 1 Refills: 0 [place] M.D., Thaddeus * Start 04-Nov-2015 Active 8 GM Inhaler Celecoxib 200 MG Oral Capsule take 1 capsule daily * Quantity: 30 Refills: 0 Tonasket M.DThaddeus Heredia * Start 05-Dec-2015 Active ALPRAZolam XR 2 MG Oral Tablet Extended Release 24 Hour Take one tablet by mouth daily * Quantity: 30 Refills: 2 Tonasket M.D.Thaddeus * Start 06-May-2016 Active Lidocaine 5 % External Ointment Apply to painful area four times a day as needed * Quantity: 1 Refills: 2 Gladys M.D., Thaddeus * Start 04-Jan-2016 Active 35 GM Tube Clindamycin HCl - 300 MG Oral Capsule take 1 po QID * Quantity: 60 Refills: 0 [place] M.D.Thaddeus * Start 05-Jan-2016 Active Cefdinir 300 MG Oral Capsule TAKE 1 CAPSULE EVERY 12 HOURS UNTIL GONE. * Quantity: 20 Refills: 0 [place] M.D.Thaddeus * Start 13-Jan-2016 Active OLANZapine 10 MG Oral Tablet Disintegrating TAKE 1 TABLET Daily at HS * Quantity: 30 Refills: 3 Gladys M.D.Thaddeus * Start 20-Jan-2016 Active Mupirocin 2 % External Ointment APPLY A SMALL AMOUNT 3 TIMES DAILY DIRECTED. * Quantity: 1 Refills: 2 [place] M.D.Thaddeus * Start 20-Jan-2016 Active 22 GM Tube [place] Carbonate ER 450 MG Oral Tablet Extended Release TAKE 2 TABLETS AT BEDTIME. * Quantity: 60 Refills: 5 Tonasket M.D.Thaddeus * Start 02-Feb-2016 Active Acamprosate Calcium 333 MG Oral Tablet Delayed Release TAKE 1 TABLET 3 TIMES DAILY. * Quantity: 90 Refills: 0 Tonasket MYonatan Sierra * Start 09-Mar-2016 Active [place] ULtrafine 31 guage 3/8 inch pen needles * Quantity: 100 Refills: 11 [place]asket M.D.Thaddeus * Start 27-Mar-2016 Active Minocycline HCl - 100 MG Oral Capsule TAKE ONE CAPSULE BY MOUTH TWICE A DAY * Quantity: 60 Refills: 5 [place] M.D.Thaddeus * Start 27-Jun-2016 Active HydrOXYzine Pamoate 100 MG Oral Capsule 1 PO BID PRN anxiety attack * Quantity: 20 Refills: 2 Gladys M.D., Thaddeus * Start 27-Apr-2016 Active Lidocaine 5 % External Ointment Apply to painful area four times a day as needed * Quantity: 1 Refills: 2 [place] M.D., Thaddeus * Start 27-Apr-2016 Active 35 GM Tube Mupirocin 2 % External Ointment APPLY A SMALL AMOUNT 3 TIMES DAILY DIRECTED. * Quantity: 1 Refills: 2 Gladys M.D., Thaddeus * Start 01-May-2016 Active 22 GM Tube Phentermine HCl - 30 MG Oral Capsule TAKE 1 CAPSULE EVERY MORNING BEFORE BREAKFAST. * Quantity: 30 Refills: 0 Gladys M.D., Thaddeus * Start Active Topiramate 25 MG Oral Tablet TAKE 1 TABLET TWICE DAILY. * Quantity: 60 Refills: 11 [place] M.D., Thaddeus * Start Active SUMAtriptan Succinate [...]
--- OUTSIDE RECORDS SUMMARY | 2016-09-19 17:02 | XMS REPORT | Summary of Care ---
Author Author Gladys Jamil, Thaddeus Organization Unknown Address Unknown Phone Unavailable Care Team Providers Care Flexboard Operator Name Role Phone Thaddeus Graham M.D. [...] AT BEDTIME. * Quantity: 30 Refills: 3 Andrew M.D., Thaddeus * Start 22-Jul-2015 Active Benzonatate 100 MG Oral Capsule TAKE 1 CAPSULE 3 TIMES DAILY NEEDED. * Quantity: 30 Refills: 2 Andrew M.D., Thaddeus * Start 22-Jul-2015 Active GuaiFENesin ER 600 MG Oral Tablet Extended Release 12 Hour TAKE 2 TABLETS EVERY 12 HOURS. * Quantity: 40 Refills: 0 Andrew M.D., Thaddeus * Start 28-Jul-2015 Active Montelukast Sodium 10 MG Oral Tablet TAKE 1 TABLET AT BEDTIME. * Quantity: 30 Refills: 5 Andrew M.D., Thaddeus * Start Active Sprintec 28 0.25-35 MG-MCG Oral Tablet TAKE 1 TABLET DAILY DIRECTED. * Quantity: 1 Refills: 0 Andrew M.D., Thaddeus * Start 18-Oct-2015 Active 28 Tablet Disp Pack Ventolin HFA 108 (90 Base) MCG/ACT Inhalation Aerosol Solution INHALE 2 PUFFS EVERY 4 HOURS NEEDED FOR COUGH AND WHEEZE. * Quantity: 1 Refills: 0 Andrew M.D., Thaddeus * Start 04-Nov-2015 Active 8 GM Inhaler Celecoxib 200 MG Oral Capsule take 1 capsule daily * Quantity: 30 Refills: 0 Andrew M.D., Thaddeus * Start 05-Dec-2015 Active ALPRAZolam XR 2 MG Oral Tablet Extended Release 24 Hour TAKE 1 TABLET DAILY. * Quantity: 30 Refills: 3 Andrew M.D., Thaddeus * Start 03-Jan-2016 Active Lidocaine 5 % External Ointment Apply to painful area four times a day as needed * Quantity: 1 Refills: 2 Andrew M.D., Thaddeus * Start 04-Jan-2016 Active 35 GM Tube Clindamycin HCl - 300 MG Oral Capsule take 1 po QID * Quantity: 60 Refills: 0 Gladys M.D., Thaddeus * Start 05-Jan-2016 Active Cefdinir 300 MG Oral Capsule TAKE 1 CAPSULE EVERY 12 HOURS UNTIL GONE. * Quantity: 20 Refills: 0 Andrew M.D., Thaddeus * Start 13-Jan-2016 Active OLANZapine 10 MG Oral Tablet Dispersible TAKE 1 TABLET Daily at HS * Quantity: 30 Refills: 3 Gladys M.D., Thaddeus * Start 20-Jan-2016 Active Mupirocin 2 % External Ointment APPLY A SMALL AMOUNT 3 TIMES DAILY DIRECTED. * Quantity: 1 Refills: 2 Gladys M.D., Thaddeus * Start 20-Jan-2016 Active 22 GM Tube [place] Carbonate ER 450 MG Oral Tablet Extended Release TAKE 2 TABLETS AT BEDTIME. * Quantity: 60 Refills: 5 Andrew M.D., Thaddeus * Start 02-Feb-2016 Active Acamprosate Calcium 333 MG Oral Tablet Delayed Release TAKE 1 TABLET 3 TIMES DAILY. * Quantity: 90 Refills: 0 Andrew M.D., Yonatan * Start 09-Mar-2016 Active Saxenda 18 MG/3ML Subcutaneous Solution Pen-injector Inject daily before breakfast. Start at 0.6mg and increase by 0.6mg weekly until getting to 3mg daily. * Quantity: 1 Refills: 5 Andrew M.D.Thaddeus * Start 27-Mar-2016 Active 3 ML Pen (5 Pens) [place] ULtrafine 31 guage 3/8 inch pen needles * Quantity: 100 Refills: 11 Andrew M.D., Thaddeus * Start 27-Mar-2016 Active Minocycline HCl - 100 MG Oral Capsule TAKE 1 CAPSULE TWICE DAILY. * Quantity: 60 Refills: 0 Andrew M.D.Thaddeus * Start 27-Apr-2016 Active HydrOXYzine Pamoate 100 MG Oral Capsule 1 PO BID PRN anxiety attack * Quantity: 20 Refills: 2 Gladys M.D., Thaddeus * Start 27-Apr-2016 Active Lidocaine 5 % External Ointment Apply to painful area four times a day as needed * Quantity: 1 Refills: 2 Andrew M.D., Thaddeus * Start 27-Apr-2016 Active 35 GM Tube Mupirocin 2 % External Ointment APPLY A SMALL AMOUNT 3 TIMES DAILY DIRECTED. * Quantity: 1 Refills: 2 Andrew M.D., Thaddeus * Start 01-May-2016 Active 22 [...] Problem not documented On 10-Jan-2016 10:45 Appointment; Thaddues Graham M.D. Encounter Diagnosis: Problem not documented [...]
--- OUTSIDE RECORDS SUMMARY | 2016-09-19 17:02 | XMS REPORT | Summary of Care ---
Author Author Gladys Jamil, Thaddeus Organization Unknown Address Unknown Phone Unavailable Care Team Providers Care Product Evangelist Name Role Phone Thaddeus Graham M.D. Unavailable [...] AT BEDTIME. * Quantity: 30 Refills: 3 [place] M.D., Thaddeus * Start 22-Jul-2015 Active Benzonatate 100 MG Oral Capsule TAKE 1 CAPSULE 3 TIMES DAILY NEEDED. * Quantity: 30 Refills: 2 [place] M.D., Thaddeus * Start 22-Jul-2015 Active GuaiFENesin ER 600 MG Oral Tablet Extended Release 12 Hour TAKE 2 TABLETS EVERY 12 HOURS. * Quantity: 40 Refills: 0 [place] M.D., Thaddeus * Start 28-Jul-2015 Active Montelukast Sodium 10 MG Oral Tablet TAKE 1 TABLET AT BEDTIME. * Quantity: 30 Refills: 5 [place] M.D., Thaddeus * Start Active Sprintec 28 0.25-35 MG-MCG Oral Tablet TAKE 1 TABLET DAILY DIRECTED. * Quantity: 1 Refills: 0 [place] M.D., Thaddeus * Start 18-Oct-2015 Active 28 Tablet Disp Pack Ventolin HFA 108 (90 Base) MCG/ACT Inhalation Aerosol Solution INHALE 2 PUFFS EVERY 4 HOURS NEEDED FOR COUGH AND WHEEZE. * Quantity: 1 Refills: 0 [place] M.D., Thaddeus * Start 04-Nov-2015 Active 8 GM Inhaler Celecoxib 200 MG Oral Capsule take 1 capsule daily * Quantity: 30 Refills: 0 [place] M.D., Thaddeus * Start 05-Dec-2015 Active ALPRAZolam XR 2 MG Oral Tablet Extended Release 24 Hour TAKE 1 TABLET DAILY. * Quantity: 30 Refills: 3 [place] M.D., Thaddeus * Start 03-Jan-2016 Active Lidocaine 5 % External Ointment Apply to painful area four times a day as needed * Quantity: 1 Refills: 2 [place] M.D., Thaddeus * Start 04-Jan-2016 Active 35 GM Tube Clindamycin HCl - 300 MG Oral Capsule take 1 po QID * Quantity: 60 Refills: 0 Gladys M.D., Thaddeus * Start 05-Jan-2016 Active Cefdinir 300 MG Oral Capsule TAKE 1 CAPSULE EVERY 12 HOURS UNTIL GONE. * Quantity: 20 Refills: 0 [place] M.D., Thaddeus * Start 13-Jan-2016 Active OLANZapine 10 MG Oral Tablet Dispersible TAKE 1 TABLET Daily at HS * Quantity: 30 Refills: 3 Gladys M.D., Thaddeus * Start 20-Jan-2016 Active Mupirocin 2 % External Ointment APPLY A SMALL AMOUNT 3 TIMES DAILY DIRECTED. * Quantity: 1 Refills: 2 Gladys M.D., Thaddeus * Start 20-Jan-2016 Active 22 GM Tube [place] Carbonate ER 450 MG Oral Tablet Extended Release TAKE 2 TABLETS AT BEDTIME. * Quantity: 60 Refills: 5 [place] M.D., Thaddeus * Start 02-Feb-2016 Active Acamprosate Calcium 333 MG Oral Tablet Delayed Release TAKE 1 TABLET 3 TIMES DAILY. * Quantity: 90 Refills: 0 [place] M.D., Yonatan * Start 09-Mar-2016 Active Saxenda 18 MG/3ML Subcutaneous Solution Pen-injector Inject daily before breakfast. Start at 0.6mg and increase by 0.6mg weekly until getting to 3mg daily. * Quantity: 1 Refills: 5 [place] M.D.Thaddeus * Start 27-Mar-2016 Active 3 ML Pen (5 Pens) [place] ULtrafine 31 guage 3/8 inch pen needles * Quantity: 100 Refills: 11 [place] M.D., Thaddeus * Start 27-Mar-2016 Active Minocycline HCl - 100 MG Oral Capsule TAKE 1 CAPSULE TWICE DAILY. * Quantity: 60 Refills: 0 [place] M.D.Thaddeus * Start 27-Apr-2016 Active HydrOXYzine Pamoate 100 MG Oral Capsule 1 PO BID PRN anxiety attack * Quantity: 20 Refills: 2 Thaddeus Graham M.D. * Start 27-Apr-2016 Active Lidocaine 5 % External Ointment Apply to painful area four times a day as needed * Quantity: 1 Refills: 2 Thaddeus Graham M.D. * Start 27-Apr-2016 Active 35 GM Tube Allergies and Adverse [...] unknown Vital Signs Date Test Result Details 27-Apr-2016 08:38 BP Systolic 118 mm[Hg] Status: [...]
[2016-09-20 07:24] LABS: HCV INDEX >11.00 Index (0.00-0.79); HIV AG AB SCREEN Non-Reactive (Non-Reactive)
== END 2016-09-18 20:45 | disposition home or self-care (01) ==
LOC: EDUNIT# 17:35 → ER 17:37
DX: F42.4 Excoriation (skin-picking) disorder (principal); N39.0 Urinary tract infection, site not specified; F15.10 Other stimulant abuse, uncomplicated; B19.20 Unspecified viral hepatitis C without hepatic coma; G47.9 Sleep disorder, unspecified; F41.9 Anxiety disorder, unspecified; F31.9 Bipolar disorder, unspecified; F43.10 Post-traumatic stress disorder, unspecified; F60.89 Other specific personality disorders; F17.210 Nicotine dependence, cigarettes, uncomplicated; Z90.89 Acquired absence of other organs; Z91.5 Personal history of self-harm; Z32.02 Encounter for pregnancy test, result negative
CPT/HCPCS: 36415; 80053; 80074; 80178; 80306; 80320; 80329; 81000; 83735; 84443; 84703; 85007; 85025; 85027; 86703; 87088; 90471; 90715; 93005; 93041